=== PATIENT | male | born 1935 | race Caucasian/White ===

== ENCOUNTER 2019-09-14 12:55 | Outpatient (CLI) | payer MEDICARE, SELFPAY ==
[2019-09-14 14:42] LABS: Abs Immature Grans 0.19 k/cumm (0.0-0.09); Basophils % 0.1; Eosinophils % 0.6; HGB 8.1 g/dL (13.5-17.5); Immature Grans % 0.4; Lymphocytes % 72.6; Mean Corp. HGB Concentration 28.9 g/dL (32.0-36.0); Mean Corpuscular Hemoglobin 30.7 pg (27.0-33.0); Mean Corpuscular Volume 106.1 fL (80-95); Mean Platelet Volume 8.7 fL (8.0-11.0); Monocytes % 1.6; Neutrophils % 24.7; Platelet Count 484 x1000/uL (130-400); RBC 2.64 m/cumm (4.50-6.00); RBC Distribution Width 13.7 % (11.8-14.1)
[2019-09-14 14:56] LABS: ALT 12 U/L (16-63); AST 12 U/L (15-37); Albumin 2.3 g/dL (3.4-5.0); Alkaline Phosphatase 105 U/L (46-116); Anion Gap 6.4 mmol/L (3-11); BUN 18 mg/dL (7-18); Bilirubin, Total 0.3 mg/dL (0.2-1.0); CO2 31.6 mmol/L (21.0-32.0); CREATININE 1.21 mg/dL (0.70-1.30); Calcium 7.8 mg/dL (8.5-10.1); Chloride 98 mmol/L (98-107); Estimated GFR 57.27 (mL/min/1.73m2); Glucose 159 mg/dL (74-106); Potassium 4.7 mmol/L (3.5-5.1); Sodium 136 mmol/L (136-145)
[2019-09-14 15:15] LABS: Absolute Basophil Count 0.05 k/cumm (0.0-0.2); Absolute Eosinophil Count 0.28 k/cumm (0.0-0.7); Absolute Monocyte Count 0.75 k/cumm (0.11-0.7); Absolute Neutrophil Count 11.53 k/cumm (1.2-6.7)
[2019-09-14 15:16] LABS: Diff Comment Agrees w/ Instrument; Macrocytosis 1+; White Blood Cell Count 46.69 k/cumm (4.4-10.8)
== END 2019-09-14 13:15 ==
PROVIDERS: Visit Provider Nurse Practitioner Adult Health
DX: J90 Pleural effusion, not elsewhere classified (principal); J18.9 Pneumonia, unspecified organism
CPT/HCPCS: 36415; 80053; 85025

== ENCOUNTER 2022-01-04 18:06 | Inpatient (IN) | payer MEDICARE, MEDICAID, SELFPAY ==
--- NOTE | 2022-01-04 18:00 | RT.EKG_ITS ---
APPROVED REPORT Exam: Resting ECG Reason for Exam: Vomiting Patient Location: E HR:80 bpm ECG Measurements Heart Rate 80 AXIS OH 165 P 4 QRSd 100 QRS -45 QT 391 T 42 QTc 449 Conclusion Sinus rhythm...normal P axis Atrial premature complex Left anterior fascicular block.. AnteriorQ >40mS
[2022-01-04 18:13] VITALS: BP 144/72; PULSE 85; RESP 18; TEMP 37.1; O2SAT 91
[2022-01-04 18:56] LABS: Lactate 1.3 mmol/L (0.6-1.4)
[2022-01-04 19:09] LABS: Abs Immature Grans 0.17 10^3/uL (0.0-0.06); Absolute Lymphocyte Count 48.96 10^3/uL (1.2-3.4); Absolute Monocyte Count 0.56 10^3/uL (0.1-0.8); Basophils % 0.1; Eosinophils % 0.5; HCT 35.9 % (40.0-50.0); HGB 10.7 g/dL (13.5-17.5); Immature Grans % 0.3; MCHC 29.8 % (32.0-36.0); MCV 104.1 fL (80-95); MPV 10.5 fL (8.0-11.0); Neutrophils % 11.3; Nucleated RBC 0 %; Platelet Count 145 10^3/uL (130-400); RBC 3.45 10^6/uL (4.36-5.78); RDW 15.1 % (11.8-14.1); RDW-SD 56.5 fL
[2022-01-04 19:15] LABS: Absolute Basophil Count 0.06 10^3/uL (0.0-0.2); Absolute Eosinophil Count 0.28 10^3/uL (0.0-0.7); Absolute Neutrophil Count 6.37 10^3/uL (1.2-6.7)
--- NOTE | 2022-01-04 19:16 | W.ED.GENAD ---
Discharge Plan Discharge Details Chief Complaint: Abd Prob Clinical Impression: Intractable vomiting, Pneumonia Primary Care Provider: Unknown,Unknown ED Provider: Annalee Martin Home Meds and New Rx's Prescriptions: No Action apixaban [Eliquis] 5 MG tablet 5 mg PO BID Qty: 180 3RF metoprolol succinate 50 MG tablet extended release 24 hr 50 mg PO DAILY Qty: 90 1RF ibuprofen [Advil Liqui-Gel] 200 MG capsule 200 mg PO PRN PRNQty: 0 0RF Medical Decision Making 86-year-old male presents to the ER with chief complaint of nausea vomiting which began at 9 this morning. He denies any abdominal pain, denies any diarrhea. EMS reported a fever of 103 patient reports that he did not realize he had a fever. He does endorse chills. He is alert and oriented. He does live at [facility], [place]. He is not vaccinated for COVID. He reports that he has an inhaler at home. He does not use home oxygen. Other past medical history includes CLL, heart block with a pacemaker, BPH, hyperlipidemia, GERD, hypertension he is on Eliquis daily. Work-up ordered including CBC, CMP lipase troponin EKG, will order CT chest abdomen pending labs. Covid test ordered. CT chest abdomen pelvis without contrast ordered due to GFR of 33 EKG was reviewed by Dr. Curtis ER attending, please see his official report and review, old EKG available. CBC shows elevated white blood cell count to a level of 56.40, patient does have a history of CLL, hemoglobin 10.7, hematocrit 35.9, absolute lymphocytes 48.96, lactate within normal limits at 1.3, sodium 145, potassium 4.6, BUN 26, creatinine 1.9 GFR 33, glucose 112, mag is elevated at 2.6, initial and serial 3-hour troponin within normal limits. Covid is negative, lipase 24. 2154: Patient complaining of nausea again an additional 4 mg of Zofran IV and an additional 500 cc normal saline bolus ordered. Awaiting urine sample. 2217: Patient still c/o emesis, Reglan 10mg IV ordered. Patient patient continues to deny any chest or abdominal pain. Room air sat dropped to 88% on room air. I did discuss my recommendation with the patient for admission he verbalizes understanding. vRad report CT chest abdomen pelvis without contrast: IMPRESSION: 1. Aneurysm of the distal aortic arch. 2. Mild mediastinal and bilateral axillary lymphadenopathy. Please see discussion below. 3. Severe coronary artery calcifications. 4. Complex consolidations and/or scar tissue noted in both lungs, greatest in the left lower lobe. Active pneumonia not excluded. Chronic changes favored. 5. Trace right pleural effusion. 6. Mildly distended esophagus. Question dysmotility. 7. Multiple compression fractures, age-indeterminate. IMPRESSION: 1. Infrarenal abdominal aortic aneurysm, 4.6 cm. 2. Retroperitoneal lymphadenopathy, greater than expected for reactive/inflammatory etiologies. Question chronic lymphocytic leukemia. Other benign and malignant causes also considered. 3. Colonic diverticulosis, without diverticulitis. Will page hospitalist for admission for possible early pneumonia, dehydration and intractable vomiting. 2323: Spoke with Dr. Fernandez who agrees to accept patient for admission, he recommends a head CT, procalcitonin and Zosyn. Plan is to admit patient for observation and IV antibiotics. Discussed plan of care with patient who verbalizes understanding and is in agreement with plan. HPI General Mode of arrival: EMS. Date/Time Provider Initiated Documentation: 01/04/22 18:23. Limitations to Documentation: no limitations. Information obtained by: patient, EMS, RN notes reviewed and old records reviewed. HPI Narrative: 86-year-old male presents to the ER with chief complaint of nausea vomiting which began at 9 this morning. He denies any abdominal pain, denies any diarrhea. EMS reported a fever of 103 patient reports that he did not realize he had a fever. He does endorse chills. He is alert and oriented. He does live at [facility]. He is not vaccinated for COVID. He reports that he has an inhaler at home. He does not use home oxygen. Other past medical history includes CLL, heart block with a pacemaker, BPH, hyperlipidemia, GERD, hypertension he is on Eliquis daily. Related Data Home Medications Medication Instructions Recorded Confirmed ibuprofen 200 mg capsule (Advil 200 mg PO PRN PRN #0 10/08/14 10/14/14 Liqui-Gel) apixaban 5 mg tablet (Eliquis) 5 mg PO BID #180 tab 03/01/15 metoprolol succinate 50 mg 50 mg PO DAILY #90 tab-cap 06/07/15 tablet,extended release 24 hr Previous Rx's Medication Instructions Recorded ibuprofen 200 mg capsule (Advil 200 mg PO PRN PRN #0 10/08/14 Liqui-Gel) Allergies Allergy/AdvReac Type Severity Reaction Status Date / Time No Known Allergies Allergy Unverified 06/07/15 08:12 General Stated Complaint: Abd Prob RASHAAD: 3 Review of Systems All systems reviewed & are unremarkable except as noted in HPI and below Cardiovascular Cardiovascular: Reports dyspnea (Dyspnea) Respiratory Respiratory: Reports dyspnea (Dyspnea) and Denies wheezing Gastrointestinal Gastrointestinal: Denies diarrhea (Denies), Reports nausea and Reports vomiting Genitourinary Genitourinary: Denies dysuria (denies) Allergic/Immunologic Allergic/Immunologic: Denies wheezing PFSH All Active Problems (Updated 01/04/22 @ 23:07 by Annalee Martin) Dyspnea on exertion (Acute 10/06/14) a. cannot walk more than 20 or 25 feet; he feels like he is going to pass out Complete heart block (Acute 10/06/14) a. vitals are stable b. junctional escape at about 63 bpm Leukocytosis (Acute 10/06/14) a. predominance of lymphocytes, question CLL CLL (chronic lymphocytic leukemia) (Acute 10/06/14) Benign prostatic hypertrophy (Chronic) Erectile dysfunction (Chronic) Hyperlipidemia (Chronic) GERD (gastroesophageal reflux disease) (Chronic) Hypertension (Chronic) Benign hematuria (Chronic) History of shingles (Chronic) 01/2013 H/O surgical procedure (Chronic) a. bilateral inguinal herna repairs History of tobacco use (Chronic) smoked for 50 years, quit in 1997 Intractable vomiting (Acute) Pneumonia (Acute) Surgical History Pacemaker (12/07/14) Repair of inguinal hernia B/L Family History Mother Stroke Father Accidental HORSE FELL ON HIM Sister No problems noted. Brother No problems noted. Grandfather No problems noted. Grandfather No problems noted. Grandmother No problems noted. Grandmother No problems noted. Social History Smoking/Tobacco Use Status: Former Tobacco Use Smoking risk assessment performed?: Yes Alcohol Intake: never Drug use: Never Substance use type: does not use Do you feel safe at home: Yes Do you feel safe in your relationship?: Yes Exam Narrative Exam Narrative: Constitutional: Alert and oriented x3. Appears stated age. Normal body habitus. Head: Normocephalic, no trauma. Eyes: Pupils PERRL, Red reflex noted, EOM's intact. Eyelids symmetrical without lesions, discharge, or swelling. ENT: Bilateral TM's WNL, External ear normal to inspection, no mastoid TTP, swelling, or erythema, Nasal turbinates WNL, no nasal discharge. Normal dentition, Posterior pharynx WNL, no exudate. Chest: Pacemaker noted, RRR, Normal S1, S2, distal pulses intact. Resp: Lungs diminishedto auscultation bilaterally, no wheezes, rales, or rhonchi. Patient has periorbital cyanosis, placed on 2 L nasal cannula. O2 sat on room air 86 to 90%. Increases with deep breathing. Abdomen: Soft, non-distended, Normoactive bowel sounds all 4 quads. Musculoskeletal: Unable to assess gait. 5 strength to all four extremities. Skin: No suspicious rashes or lesions. Capillary refill less than 2 sec. Neurologic: Cranial nerves II-XII intact. Alert and oriented x 3. Motor: No deficits noted. Sensory: Intact bilaterally all 4 extremities. Reflexes: DTR's intact bilaterally.. Hematologic/Lymphatic: No ecchymosis, no lymphadenopathy. Course Vital Signs Vital signs: Vital Signs Temperature 37.1 C 01/04/22 18:13 Pulse 85 01/04/22 18:13 Respiratory Rate 18 01/04/22 18:13 Blood Pressure 144/72 H 01/04/22 18:13 Pulse Oximetry 91 L 01/04/22 18:13 Temperature 37.1 C 01/04/22 18:13 Temperature Source Oral 01/04/22 18:13 Pulse 85 01/04/22 18:13 Respiratory Rate 18 01/04/22 18:13 Blood Pressure 144/72 H 01/04/22 18:13 Blood Pressure Position Sitting 01/04/22 18:13 Pulse Oximetry 91 L 01/04/22 18:13 Oxygen Delivery Method Room Air 01/04/22 18:13 Oxygen Flow Rate 0 01/04/22 18:13 Lab/Test Results Lab/Test Results: 01/04/22 18:32 Blood Blood Culture - Pending 03/18/22 18:06 Blood Blood Culture - Pending Laboratory Tests Range/Units 01/04/22 18:32 VBG Lactate (0.6-1.4) mmol/L 1.3
[2022-01-04 19:34] LABS: ALT 14 U/L (16-63); AST 13 U/L (15-37); Albumin 4.4 g/dL (3.4-5.0); Alkaline Phosphatase 115 U/L (46-116); Anion Gap 10.8 mmol/L (3-11); BUN 26 mg/dL (7-18); Bilirubin, Total 0.8 mg/dL (0.2-1.0); CO2 26.2 mmol/L (21.0-32.0); CREATININE 1.9 mg/dL (0.70-1.30); Calcium 8.8 mg/dL (8.5-10.1); Chloride 108 mmol/L (98-107); Diff Comment Diff Reviewed; Estimated GFR 33.86 (mL/min/1.73m2); Glucose 112 mg/dL (74-106); Lipase 24 U/L (73-393); Lymphocytes % 86.8; Macrocytosis 3+; Magnesium 2.6 mg/dL (1.8-2.4); Potassium 4.6 mmol/L (3.5-5.1); Sodium 145 mmol/L (136-145); Total Protein 6.8 g/dL (6.4-8.2); Troponin I < 50 ng/L (<or=60)
[2022-01-04 19:40] LABS: Source Nasal/Nares
--- NOTE | 2022-01-04 19:45 | DI.CT_ITS ---
Exam(s) CT CHEST/ABD/PEL WO EXAM: CT CHEST/ABD/PEL WO CLINICAL HISTORY: Nausea, Vomiting, SOB, PUI. TECHNIQUE: Imaging Protocol: Axial computed tomography images with coronal and sagittal reformatted images were created and reviewed CONTRAST MATERIAL: Intravenous: none Oral: None COMPARISON: CT ABD PELVIS WITH CONTRAST from 02/15/2009 CR XR CHEST 2V PA LATERAL from 09/27/2019 FINDINGS: CHEST: LUNGS: There is now an element of decreased left hemithoracic volume without obvious ipsilateral left rib findings to suggest an prior thoracotomy.. There is some scarring in the lateral left lung as w ell as left lung base although there may also be some mild infiltrate in left lung base. No left ple ural effusion. On the right side there is a small pleural effusion evident. Some scarring in the apex. Benign calc ified granulomas again noted in the right lung. Mild infiltrate/atelectasis in the right lung base j ust above the hemidiaphragm. There are no significant focal findings in the trachea and mainstem bro nchi. MEDIASTINUM: The esophagus is significantly dilated to diameter of 3 cm. There is evidence of previo us surgery in the region of the stomach which was also evident on the 2008 study. The esophagus in 2 009 was not dilated. Luminal hyperdensity is noted in the lower esophagus, possibly significant. Vi sualized thyroid unremarkable.There is no obvious hilar adenopathy. There is, however, adenopathy in the mid mediastinum paratracheal region and aortopulmonic window. Slightly prominent hilar lymph no emmanuel, probably not pathologic. No supraclavicular adenopathy. Visualized thyroid unremarkable. CARDIAC: Cardiomegaly. Pacemaker wires. Thin pericardial effusion maximum measurement 3 millimeters . 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 Diameter of the proxim al arch is 3.8 cm. Mid arch 3.5 cm. There is aneurysmal dilatation of the distal aortic arch to 4.5 cm, not associated with an aberrant right subclavian artery. Distal to this fusiform aneurysm of th e descending thoracic aorta measures 3.2 cm. OSSEOUS: No obvious lytic osseous lesions. However, there are multilevel compression fractures in th e thoracolumbar spine, some which contain thoracoplasty cement, particularly T10, L1, and L4, or. Ot her multilevel superior endplate indentation noted. No obvious acute vertebral fractures. No lytic vertebral body lesions evident.. ABDOMEN: There is no ascites. LIVER: There are no obvious focal hepatic lesions evident of this noninfused study. GALLBLADDER/BILIARY: Gallbladder is somewhat distended, measuring 11 cm length by 4.3 cm wide. No ob vious gallstones nor gallbladder wall edema. CBD is not dilated PANCREAS: The pancreas is atrophic. No ominous pancreatic masses. No pancreatic calcifications. No dilatation of the pancreatic duct. SPLEEN: Spleen is not enlarged. No obvious intrasplenic lesions. ADRENALS: There are no significant adrenal masses. KIDNEYS: There are cysts in both kidneys.. These have increased in size from 2009. Largest cyst in the right kidney is located inferiorly and measures 3.2 x 3 cm. Largest cyst in the left kidney is a lso towards the inferior aspect and measures 2.5 x 2.5 cm. No solid renal masses. No calculi. No h ydronephrosis nor hydroureter on. No obvious focal abnormality in the urinary bladder. No bladder d iverticuli. Prostate size is minimally prominent. ABDOMINAL AORTA: There is a fusiform para renal abdominal aortic aneurysm. At the level of the renal arteries the aorta measures 3.9 cm. Exhibit similar diameter distally. Also arterial megaly of the common iliac arteries both sides noted, more so on the left. LYMPH NODES: There is para-aortic adenopathy. Also adenopathy around the aortic bifurcation. Also a long the iliac chains. Slightly prominent bilateral inguinal nodes are noted. ABDOMINAL WALL/GI: There are 2 adjacent fat only containing anterior abdominal hernia as, similar to previous. Mesenteric fat within the inguinal hernia sacs is knots pre shea. No bowel loops therein. No bowel obstruction. No evidence of bowel obstruction. PELVIS: LYMPH NODES: Adenopathy as described above. GI: No evidence of appendicitis.Extensive diverticulosis of the descending-left colon but no evidence of obvious acute diverticulitis. No free fluid URINARY BLADDER: No calculi nor obvious masses evident REPRODUCTIVE: Age appropriate OSSEOUS: No significant osseous lesions. IMPRESSION: 1. There is lymphadenopathy in the mediastinum, intra-abdominal para-aortic and within the iliac sonja ns of both sides of the pelvis. Suspicious for lymphoma. Spleen size is normal. There is no ascite s. 2. There is aneurysmal dilatation of the ascending, arch, and proximal descending thoracic aorta, wit h measurements as above. The fusiform dilatation of the distal aortic arch to diameter of 4.5 cm (no associated aberrant right subclavian artery at this level). There is also aneurysmal dilatation of the abdominal aorta measuring up to 3.9 cm. Also arterial megaly of the common iliac arteries, sligh tly more prominent on the left side. 3. Left-sided lung scarring and some infiltrate in the left lung base. Small right pleural effusion. No pleural effusion on the left side. 4. unchanged adjacent fat only containing anterior abdominal wall hernias. No bowel obstruction. 5. Benign cysts in both kidneys which have slightly enlarged when compared to 2009. There are no so lid renal masses, calculi, or hydronephrosis. No significant findings in the urinary bladder. 6. there are multilevel compression fractures including 3 of which contain kyphoplasty cement, these being T10, L1, and L4. No obvious acute thoracic spine fractures nor lytic osseous lesions. 7. There is extensive diverticulosis of the descending and sigmoid colon. There is, however, no ann-marie dence of obvious acute diverticulitis. RADIATION DOSE DELIVERED: 1,148.49mGy.cm Total DLP DATA REPOSITORY: All CT scans at this facility are submitted to the National Radiology Data Registry (NRDR) Dose Index Registry (DIR) with the [employer] (ACR). RADIATION OPTIMIZATION: All CT scans at this facility use at least one of these dose optimization te chniques: automated exposure control; mA and/or kV adjustment per patient size (includes targeted exa ms where dose is matched to clinical indication); or iterative reconstruction.
[2022-01-04 19:52] VITALS: BP 138/72; PULSE 88; RESP 18; O2SAT 95
[2022-01-04 20:26] LABS: COVID-19 PCR Negative (Negative)
[2022-01-04 21:38] LABS: Troponin I < 50 ng/L (<or=60)
[2022-01-04] MEDS: Ondansetron 4 MG/2 ML VIAL IVP ×2 (21:57→23:35)
[2022-01-04] MEDS: Normal Saline 500 ML IV (21:58)
[2022-01-04] MEDS: Metoclopramide 10 MG/2 ML VIAL IVP (22:21)
--- NOTE | 2022-01-04 22:41 | DI.VRAD_ITS ---
PROCEDURE INFORMATION: Exam: CT Chest Without Contrast; Diagnostic Exam date and time: 01/04/2022 9:17 PM Age: 86 years old Clinical indication: Nausea and vomiting; Shortness of breath; Additional info: Nausea, vomiting, SOB TECHNIQUE: Imaging protocol: Diagnostic computed tomography of the chest without contrast. 3D rendering (Not supervised by radiologist): MIP and/or 3D reconstructed images were created by the technologist. Radiation optimization: All CT scans at this facility use at least one of these dose optimization techniques: automated exposure control; mA and/or kV adjustment per patient size (includes targeted exams where dose is matched to clinical indication); or iterative reconstruction. COMPARISON: CR XR CHEST 2V PA LATERAL 09/27/2019 10:26 AM FINDINGS: Tubes, catheters and devices: Pacemaker wires noted, looped in the right atrium. Mildly dilated esophagus. Lungs: Complex consolidations noted in the lower lobes, left greater than right. Large pleuroparenchymal band of tissue noted in the left upper lobe. Moderate volume loss noted in the left lung. Pleural spaces: Trace right pleural effusion. No pneumothorax. Heart: Mild cardiomegaly. Pericardial thickening. Severe coronary artery calcifications. Aorta: Abnormal distal aortic arch, 4.7 cm diameter. Moderate vascular calcifications. Ascending thoracic aorta is negative for aneurysm. Descending thoracic aorta is negative for aneurysm. Lymph nodes: Mild mediastinal and axillary lymphadenopathy. Subaortic lymph node measures 18 x 21 mm. Bones/joints: Compression fractures are noted at T6, T7, T9, T10, T11, T12, L1, and L2. Methylmethacrylate noted L1 and T10. Soft tissues: Mild gynecomastia. Small epidermal inclusion cyst noted, midline lower back approximately T9-T10 level. IMPRESSION: 1. Aneurysm of the distal aortic arch. 2. Mild mediastinal and bilateral axillary lymphadenopathy. Please see discussion below. 3. Severe coronary artery calcifications. 4. Complex consolidations and/or scar tissue noted in both lungs, greatest in the left lower lobe. Active pneumonia not excluded. Chronic changes favored. 5. Trace right pleural effusion. 6. Mildly distended esophagus. Question dysmotility. 7. Multiple compression fractures, age-indeterminate. PROCEDURE INFORMATION: Exam: CT Abdomen And Pelvis Without Contrast Exam date and time: 01/04/2022 9:17 PM Age: 86 years old Clinical indication: Nausea and vomiting; Shortness of breath; Additional info: Nausea, vomiting, SOB TECHNIQUE: Imaging protocol: Computed tomography of the abdomen and pelvis without contrast. 3D rendering (Not supervised by radiologist): MIP and/or 3D reconstructed images were created by the technologist. Radiation optimization: All CT scans at this facility use at least one of these dose optimization techniques: automated exposure control; mA and/or kV adjustment per patient size (includes targeted exams where dose is matched to clinical indication); or iterative reconstruction. COMPARISON: CR XR CHEST 2V PA LATERAL 09/27/2019 10:26 AM FINDINGS: Lungs: Please see CT chest report above. Liver: Unremarkable noncontrast liver imaging. Gallbladder and bile ducts: Distended gallbladder. No calcified stones. No ductal dilatation. Pancreas: Fatty replaced pancreas. No inflammatory change. Spleen: Negative for suspicious splenic lesion. Adrenal glands: Normal. No mass. Kidneys and ureters: Negative for hydronephrosis. Multiple small cysts are present in both kidneys, up to 3.1 cm diameter. Nondilated ureters. No stones. Stomach and bowel: Collapsed stomach. Surgical clips are noted around the gastroesophageal junction. Small bowel is not dilated. Most of the small bowel is on the right, with the colon on the left abdomen. The duodenum is rotated and appropriate in position. Moderate stool noted in the cecum. Extensive diverticulosis is noted in the colon. There are no focal inflammatory changes around the colon. Appendix: Normal appendix is observed, located in the anterior mid abdomen with the abnormal left-sided position of the cecum. Intraperitoneal space: Unremarkable. No free air. No significant fluid collection. Vasculature: The infrarenal abdominal aorta is aneurysmal, 4.6 cm AP diameter. Moderate calcifications are present through the aorta and branch arteries. Lymph nodes: Retroperitoneal lymphadenopathy is observed. Infrarenal periaortic lymph nodes on the left measure up to 18 x 19 mm. Fat stranding is noted around the lymph nodes, suggesting lymphatic congestion. Lymphadenopathy extends into the iliac chains bilaterally. Urinary bladder: Unremarkable as visualized. Reproductive: Unremarkable as visualized. Bones/joints: Compression fractures are noted L1, L2, and L4. Methylmethacrylate is present L1 and L4. Multilevel facet arthropathy noted. Mild degenerative disc disease present, although vacuum disc is prominent at L4-L5. No evidence of endplate destructive change. Soft tissues: Periumbilical abdominal wall hernias are present, containing. Additional intramuscular lipoma noted in the upper right abdominal wall. IMPRESSION: 1. Infrarenal abdominal aortic aneurysm, 4.6 cm. 2. Retroperitoneal lymphadenopathy, greater than expected for reactive/inflammatory etiologies. Question chronic lymphocytic leukemia. Other benign and malignant causes also considered. 3. Colonic diverticulosis, without diverticulitis. Dictated and Authenticated by: Yosef Black MD. Ordering:BRENNAN Mantilla MD
--- NOTE | 2022-01-04 23:00 | DI.CT_ITS ---
Exam(s) CT HEAD WO EXAM: CT HEAD WO CLINICAL HISTORY: Vomiting R/O CVA. TECHNIQUE: Imaging Protocol: Axial computed tomography images with coronal and sagittal reformatted images were created and reviewed COMPARISON: No exams were available for comparison FINDINGS: There are no skull fractures nor fluid in the visualized paranasal sinuses. There is no evidence of intracranial hemorrhage, mass effect, or shift of midline structures. There are no extra-axial fluid collections. The ventricles are not enlarged or shifted and there is no blo od within the ventricular system nor within the basal cisterns. Amount of involutional changes consistent with this patient's advanced age IMPRESSION: No acute intracranial findings on this noninfused CT scan of the brain. RADIATION DOSE DELIVERED: 922.97mGy.cm Total DLP DATA REPOSITORY: All CT scans at this facility are submitted to the National Radiology Data Registry (NRDR) Dose Index Registry (DIR) with the [employer] (ACR). RADIATION OPTIMIZATION: All CT scans at this facility use at least one of these dose optimization te chniques: automated exposure control; mA and/or kV adjustment per patient size (includes targeted exa ms where dose is matched to clinical indication); or iterative reconstruction.
[2022-01-04] MEDS: Famotidine 20 MG/2 ML VIAL IVP (23:34)
[2022-01-04] MEDS: Normal Saline 1,000 ML 150 ML IV (23:35)
[2022-01-04] MEDS: PIPERACILLIN/TAZO 3.375 GM in Normal Saline 50 ML IVPB (23:35)
[2022-01-04] MEDS: Ondansetron 4 MG/2 ML VIAL (23:35)
[2022-01-05] VITALS (14 sets, daily range): BP systolic 103–117; BP diastolic 47–71; PULSE 67–79; RESP 1–20; TEMP 36.8–37.7; O2SAT 95–97
[2022-01-05 00:15] LABS: Procalcitonin 0.1 ng/mL
--- NOTE | 2022-01-05 00:30 | DI.VRAD_ITS ---
PROCEDURE INFORMATION: Exam: CT Head Without Contrast Exam date and time: 01/05/2022 12:09 AM Age: 86 years old Clinical indication: Other: Vomiting, R/O CVA TECHNIQUE: Imaging protocol: Computed tomography of the head without contrast. Radiation optimization: All CT scans at this facility use at least one of these dose optimization techniques: automated exposure control; mA and/or kV adjustment per patient size (includes targeted exams where dose is matched to clinical indication); or iterative reconstruction. Other technique: STROKE PROTOCOL was implemented. COMPARISON: No relevant prior studies available. FINDINGS: Brain: There is mild age related parenchymal atrophy with prominence of the cortical sulci. Periventricular and deep white matter hypodensities are consistent with sequela of chronic microvascular ischemic disease. No midline shift or herniation. No acute intracranial hemorrhage. Cerebral ventricles: No ventriculomegaly. Paranasal sinuses: Imaged paranasal sinuses appropriately aerated without air-fluid levels. Mastoid air cells: No mastoid effusion. Bones/joints: Unremarkable. No acute osseous finding. Soft tissues: No focal soft tissue abnormality. IMPRESSION: No acute intracranial finding. ASSESSMENT: ASPECTS ([place] Stroke Program Early CT Score) is 10. Dictated and Authenticated by: Abdi Negrete MD. Ordering:BRENNAN Mantilla MD
[2022-01-05 01:21] LABS: Bilirubin Negative (Negative); Blood Trace-lysed (Negative); Clarity Clear (Clear); Glucose Negative (Negative); Ketones Negative (Negative); Leukocyte Esterase Negative (Negative); Nitrite Negative (Negative); Specific Gravity 1.025 (1.005-1.025); Urobilinogen 0.2 EU/dL (Up TO 0.2); pH 5.5 (5-8)
[2022-01-05 01:28] LABS: WBC 0-2 HPF (0-5)
[2022-01-05 01:29] LABS: Bacteria Rare HPF (Negative); C & S Indicated? No; Casts 3-5 Hyaline LPF (Negative); Crystals Negative HPF (Negative); Epithelial Cells Negative HPF (Negative); Mucus Trace (Negative)
[2022-01-05 07:17] LABS: ALT 12 U/L (16-63); AST 11 U/L (15-37); Albumin 3.8 g/dL (3.4-5.0); Alkaline Phosphatase 106 U/L (46-116); Anion Gap 1.7 mmol/L (3-11); BUN 24 mg/dL (7-18); Bilirubin, Total 0.7 mg/dL (0.2-1.0); CO2 27.3 mmol/L (21.0-32.0); CREATININE 1.7 mg/dL (0.70-1.30); Calcium 7.8 mg/dL (8.5-10.1); Chloride 106 mmol/L (98-107); Glucose 88 mg/dL (74-106); Sodium 135 mmol/L (136-145); Total Protein 6.1 g/dL (6.4-8.2)
--- NOTE | 2022-01-05 08:00 | W.PM.HP.N ---
Assessment and Plan Assessment and plan (1) CLL (chronic lymphocytic leukemia): Status: Acute Assessment and plan: His white blood cell count is elevated higher than its been in the past that we have records of. The differential shows about 50% lymphocytes. His blood count be rechecked this morning. (2) Intractable vomiting: Status: Acute Assessment and plan: His intractable vomiting is improved. This vomiting was probably related to the meal that he had at [facility] yesterday morning. We will start him on clear fluids this morning. (3) Pneumonia: Status: Acute Assessment and plan: His x-ray does show some infiltrate. He has been started on Zosyn and will check a Legionella antigen and strep antigen. Attempted sputum culture on him. His Covid test is negative. His x-ray does not have an appearance of a Covid pneumonia. I encouraged him to get vaccinated. 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 I doubt if he be a surgical candidate for repair. This can be follow-up as an outpatient. History of Present Illness History of Present Illness Chief Complaint: intractable vomiting Narrative: This 86-year-old male came to the emergency department yesterday with intractable vomiting. Started about 9 AM when he and his stepdaughter went to [facility] after going to [facility] and had an egg McMuffin. He says his stepdaughter had 2 of them that he could only eat half when the began having vomiting. This vomiting persisted and he came to the emergency department for evaluation. He had extensive evaluation and note etiology was found for his vomiting. He was found to have a aneurysm of the thoracic and abdominal aorta is which are not causing his symptoms at the present time. He was found to have some infiltrates in his lungs. Covid testing is negative. Is not immunized Covid and says his doctor in [facility] told him he did not need the vaccine. He feels improved today. He has not had any abdominal pain. He has not vomited for a number of hours and he would like to advance his diet. He is only given ice chips now. He was found to be a bit hypoxic in the emergency department and was put on supplemental oxygen. He has not had any cough. He has not been febrile here or in emergency department but was found to have a fever by EMS when they picked him up at 103 ?F. He does live by himself. His stepdaughter helps him out when he needs to go places. He says he manages well on his own and has an apartment managed by [facility] here in [facility]. He does take a apixaban and I do not see any cardiac problem on his problem list except for complete heart block. I suspect he is on this for atrial fibrillation although his electrocardiogram did not show that on admission. He did quit smoking a pack a day in 1997. He does not use alcohol. Review of Systems Constitutional Constitutional: Denies chills, Denies fever(s), Denies frequent falls and Denies headache(s) ENT Ears, Nose, Mouth, and Throat: Denies headache(s) Cardiovascular Cardiovascular: Denies chest pain, Denies irregular heart rhythm, Denies radiating jaw, neck or arm pain, Denies palpitations and Denies dyspnea Respiratory Respiratory: Denies cough, Denies pain with cough and Denies dyspnea Gastrointestinal Gastrointestinal: Denies abdominal pain, Denies heartburn, Denies diarrhea, Denies loose stools, Reports nausea, Reports vomiting and Denies hematemesis Genitourinary Genitourinary: Denies difficulty urinating and Denies dysuria Neurologic Neurologic: Reports system reviewed and no additional complaints, except as documented, Denies frequent falls, Denies headache(s) and Denies seizure-like activity Endocrine Endocrine: Denies palpitations PFSH All Active Problems (Updated 01/05/22 @ 08:15 by Keagan Fernandez MD) Aortic aneurysm (Chronic) Dyspnea on exertion (Acute 10/06/14) a. cannot walk more than 20 or 25 feet; he feels like he is going to pass out Complete heart block (Acute 10/06/14) a. vitals are stable b. junctional escape at about 63 bpm Leukocytosis (Acute 10/06/14) a. predominance of lymphocytes, question CLL CLL (chronic lymphocytic leukemia) (Acute 10/06/14) Benign prostatic hypertrophy (Chronic) Erectile dysfunction (Chronic) Hyperlipidemia (Chronic) GERD (gastroesophageal reflux disease) (Chronic) Hypertension (Chronic) Benign hematuria (Chronic) History of shingles (Chronic) 01/2013 H/O surgical procedure (Chronic) a. bilateral inguinal herna repairs History of tobacco use (Chronic) smoked for 50 years, quit in 1997 Intractable vomiting (Acute) Pneumonia (Acute) Surgical History Pacemaker (12/07/14) Repair of inguinal hernia B/L Family History Mother Stroke Father Accidental HORSE FELL ON HIM Sister No problems noted. Brother No problems noted. Grandfather No problems noted. Grandfather No problems noted. Grandmother No problems noted. Grandmother No problems noted. Social History Smoking/Tobacco Use Status: Former Tobacco Use Smoking risk assessment performed?: Yes Alcohol Intake: never Drug use: Never Substance use type: does not use Do you feel safe at home: Yes Do you feel safe in your relationship?: Yes Meds Allergies and Home Medications Allergies Allergy/AdvReac Type Severity Reaction Status Date / Time No Known Allergies Allergy Unverified 06/07/15 08:12 Home Medications Medication Instructions Recorded Confirmed Type ibuprofen 200 mg capsule (Advil 200 mg PO PRN PRN #0 10/08/14 10/14/14 Rx Liqui-Gel) apixaban 5 mg tablet (Eliquis) 5 mg PO BID #180 tab 03/01/15 01/05/22 History metoprolol succinate 50 mg 50 mg PO DAILY #90 tab-cap 06/07/15 01/05/22 History tablet,extended release 24 hr albuterol sulfate 90 mcg/actuation 1 puff INHALATION PRN PRN 01/05/22 01/05/22 History aerosol inhaler furosemide 20 mg tablet 20 mg DAILY 01/05/22 01/05/22 History ipratropium 0.5 mg-albuterol 3 mg 3 ml INHALATION DAILY 01/05/22 01/05/22 History (2.5 mg base)/3 mL nebulization soln Exam Const General: cooperative, comfortable, no acute distress and not ill appearing Nutritional Appearance: overweight HENMT Mouth: oral mucosae normal Neck Neck: normal visual inspection, no lymphadenopathy and no JVD Resp Auscultation: clear to auscultation bilaterally, no rales and no wheezes Cardio Rate: regular rate Rhythm: regular rhythm Heart Sounds: S1 normal, S2 normal, no gallops and no murmurs GI Inspection: normal to inspection and non-distended Palpation: soft, no hepatosplenomegaly, not firm and nontender Extrem General: normal to inspection, no cyanosis and no edema Results Labs Result diagrams: 01/04/22 18:32 01/05/22 06:40 Labs: Laboratory Results - last 24 hr 01/04/22 01/04/22 01/04/22 18:32 18:32 18:32 WBC 56.40 H* RBC 3.45 L Hgb 10.7 L Hct 35.9 L MCV 104.1 H MCH 31.0 MCHC 29.8 L RDW 15.1 H Plt Count 145 MPV 10.5 Immature Gran % 0.3 Neutrophils % 11.3 Lymphocytes % 86.8 Monocytes % 1.0 Eosinophils % 0.5 Basophils % 0.1 Nucleated RBC % 0 Absolute Neutrophils 6.37 Absolute Lymphocytes 48.96 H Absolute Monocytes 0.56 Absolute Eosinophils 0.28 Absolute Basophils 0.06 RBC Morphology See Below Macrocytosis 3+ VBG Lactate 1.3 Sodium 145 Potassium 4.6 Chloride 108 H Carbon Dioxide 26.2 Anion Gap 10.8 BUN 26 H Creatinine 1.9 H Estimated GFR/1.73 m2 33.86 Glucose 112 H Calcium 8.8 Magnesium 2.6 H Total Bilirubin 0.8 AST 13 L ALT 14 L Alkaline Phosphatase 115 Troponin I < 50 Total Protein 6.8 Albumin 4.4 Lipase 24 Procalcitonin Urine Color Urine Clarity Urine pH Ur Specific [place] Urine Protein Urine Ketones Urine Blood Urine Nitrite Urine Bilirubin Urine Urobilinogen Ur Leukocyte Esterase Urine RBC Urine WBC Ur Epithelial Cells Urine Crystals Urine Bacteria Urine Casts Urine Mucus Ur Culture Indicated? Urine Glucose COVID-19 Source SARS-CoV-2 (PCR) 01/04/22 01/04/22 01/04/22 19:30 19:32 20:45 WBC RBC Hgb Hct MCV MCH MCHC RDW Plt Count MPV Immature Gran % Neutrophils % Lymphocytes % Monocytes % Eosinophils % Basophils % Nucleated RBC % Absolute Neutrophils Absolute Lymphocytes Absolute Monocytes Absolute Eosinophils Absolute Basophils RBC Morphology Macrocytosis VBG Lactate Sodium Potassium Chloride Carbon Dioxide Anion Gap BUN Creatinine Estimated GFR/1.73 m2 Glucose Calcium Magnesium Total Bilirubin AST ALT Alkaline Phosphatase Troponin I < 50 Total Protein Albumin Lipase Procalcitonin 0.1 Urine Color Urine Clarity Urine pH Ur Specific [place] Urine Protein Urine Ketones Urine Blood Urine Nitrite Urine Bilirubin Urine Urobilinogen Ur Leukocyte Esterase Urine RBC Urine WBC Ur Epithelial Cells Urine Crystals Urine Bacteria Urine Casts Urine Mucus Ur Culture Indicated? Urine Glucose COVID-19 Source Nasal/Nares SARS-CoV-2 (PCR) Negative 01/05/22 01/05/22 01:12 06:40 WBC RBC Hgb Hct MCV MCH MCHC RDW Plt Count MPV Immature Gran % Neutrophils % Lymphocytes % Monocytes % Eosinophils % Basophils % Nucleated RBC % Absolute Neutrophils Absolute Lymphocytes Absolute Monocytes Absolute Eosinophils Absolute Basophils RBC Morphology Macrocytosis VBG Lactate Sodium 135 L Potassium 4.0 Chloride 106 Carbon Dioxide 27.3 Anion Gap 1.7 L BUN 24 H Creatinine 1.7 H Estimated GFR/1.73 m2 38.50 Glucose 88 Calcium 7.8 L Magnesium Total Bilirubin 0.7 AST 11 L ALT 12 L Alkaline Phosphatase 106 Troponin I Total Protein 6.1 L Albumin 3.8 Lipase Procalcitonin Urine Color Yellow Urine Clarity Clear Urine pH 5.5 Ur Specific [place] 1.025 Urine Protein Negative Urine Ketones Negative Urine Blood Trace-lysed H Urine Nitrite Negative Urine Bilirubin Negative Urine Urobilinogen 0.2 Ur Leukocyte Esterase Negative Urine RBC 5-10 H Urine WBC 0-2 Ur Epithelial Cells Negative Urine Crystals Negative Urine Bacteria Rare Urine Casts 3-5 Hyaline Urine Mucus Trace Ur Culture Indicated? No Urine Glucose Negative COVID-19 Source SARS-CoV-2 (PCR) Last Vital Signs Temp 36.9 C 01/05/22 05:55 Pulse 76 01/05/22 07:33 Resp 18 01/05/22 05:55 BP 105/61 01/05/22 05:55 Pulse Ox 97 01/05/22 05:55
[2022-01-05] MEDS: Aspirin 81 MG CHEW CH (08:41)
[2022-01-05] MEDS: Albuterol/Ipratropium 3 ML UPD VIAL IH ×4 (08:41→20:19)
[2022-01-05] MEDS: Normal Saline Flush 10 ML SYR IVP (08:42)
[2022-01-05] MEDS: Normal Saline 1,000 ML 75 ML IV (08:42)
[2022-01-05] MEDS: Apixaban 5 MG TAB PO ×2 (08:42→20:20)
--- NOTE | 2022-01-05 08:59 | PDOC.CMIN ---
- If Service Date Differs Date of service: 01/05/22 Time of Service: 08:59 Care Management Initial Assess REASON FOR HOSPITALIZATION:: Pneumonia, Intractable Vomiting, CLL PAST MEDICAL HISTORY/PAST SURGICAL HISTORY:: All Active Problems (Updated 01/05/22 @ 08:15 by Keagan Fernandez MD). Aortic aneurysm (Chronic). Dyspnea on exertion (Acute 10/06/14). a. cannot walk more than 20 or 25 feet; he feels like he is going to pass out. Complete heart block (Acute 10/06/14). a. vitals are stable. b. junctional escape at about 63 bpm. Leukocytosis (Acute 10/06/14). a. predominance of lymphocytes, question CLL. CLL (chronic lymphocytic leukemia) (Acute 10/06/14). Benign prostatic hypertrophy (Chronic). Erectile dysfunction (Chronic). Hyperlipidemia (Chronic). GERD (gastroesophageal reflux disease) (Chronic). Hypertension (Chronic). Benign hematuria (Chronic). History of shingles (Chronic). 01/2013. H/O surgical procedure (Chronic). a. bilateral inguinal herna repairs. History of tobacco use (Chronic). smoked for 50 years, quit in 1997. Intractable vomiting (Acute). Pneumonia (Acute). Surgical History . Pacemaker (12/07/14). Repair of inguinal hernia. B/L PREVIOUS FUNCTIONAL STATUS/SOCIAL/FAMILY SUPPORTS:: Micky is and lives alone at the [facility] in [facility]. He is independent with his ADL's and if he ever needs anything he calls his daughter Kate Camachoor who lives up the street. He uses a walker to ambulate and travels often to his daughter's house using his motorized scooter. He uses [email or web address] to transport to his doctor's appointments, and Kate transports him everywhere else. They have a good relationship and are very close. CURRENT FUNCTIONAL STATUS:: Micky was sitting on the side of his bed visiting his daughter Kate and her when CM met with him. He was alert, oriented pleasant and easy to engage in conversation. Although he would rather go home, he is ok with staying the night for additional IV antibiotics and monitoring. He is using his IS and acapella as instructed. ADVANCE DIRECTIVES:: On File, , alt. [facility] is daughter Kate Bedor. Has patient been provided with info about the portal/API?: Yes Did the patient sign up for the portal?: No CODE STATUS:: DNR/DNI INSURANCE COVERAGE / FINANCIAL ISSUES:: Medicaid. Medicare CURRENT HOME/COMMUNITY SERVICES/EQUIPMENT:: Has a walker and motorized scooter at home. He does not have [facility] services. He is not interested in [facility], as he does not favor their meals. PRIMARY CARE PHYSICIAN:: [facility], Dr. Rocha POTENTIAL DISCHARGE NEEDS:: Follow up appointments, Outpatient ST PATIENT/FAMILY EDUCATION NEEDS:: Review discharge instructions, limitations, medications and plan to follow up with community providers. ANTICIPATED BARRIERS TO DISCHARGE:: None identified at this time. TRANSPORTATION:: Via private vehicle with [facility]. PLAN:: Anticipate, Micky will discharge home when he is medically ready. He will transport via private vehicle with [facility] Love. He will follow up with community providers and discharge plan of care as prescribed.
[2022-01-05] MEDS: PIPERACILLIN/TAZO 3.375 GM in Normal Saline 50 ML IVPB ×3 (09:30→20:20)
[2022-01-05 23:15] LABS: Legionella Ag Detection Urine Negative (Negative)
[2022-01-06] VITALS (11 sets, daily range): BP systolic 94–107; BP diastolic 50–62; PULSE 76–84; RESP 2–20; TEMP 36.6–37.9; O2SAT 85–96
[2022-01-06] MEDS: PIPERACILLIN/TAZO 3.375 GM in Normal Saline 50 ML IVPB ×4 (02:10→19:45)
[2022-01-06 06:05] LABS: Abs Immature Grans 0.08 10^3/uL (0.0-0.06); Absolute Eosinophil Count 0.16 10^3/uL (0.0-0.7); Absolute Lymphocyte Count 35.03 10^3/uL (1.2-3.4); Absolute Monocyte Count 0.48 10^3/uL (0.1-0.8); Absolute Neutrophil Count 4.29 10^3/uL (1.2-6.7); Basophils % 0.2; Eosinophils % 0.4; HCT 31.1 % (40.0-50.0); HGB 9.2 g/dL (13.5-17.5); Immature Grans % 0.2; Lymphocytes % 87.3; MCH 31.3 pg (27.0-33.0); MCHC 29.6 % (32.0-36.0); MCV 105.8 fL (80-95); MPV 10.5 fL (8.0-11.0); Monocytes % 1.2; Neutrophils % 10.7; Nucleated RBC 0 %; Platelet Count 117 10^3/uL (130-400); RBC 2.94 10^6/uL (4.36-5.78); RDW-SD 59.2 fL
[2022-01-06 06:14] LABS: BUN 20 mg/dL (7-18); CREATININE 1.6 mg/dL (0.70-1.30); Calcium 7.8 mg/dL (8.5-10.1); Chloride 108 mmol/L (98-107); Estimated GFR 41.29 (mL/min/1.73m2); Glucose 90 mg/dL (74-106); Potassium 4.7 mmol/L (3.5-5.1); Sodium 140 mmol/L (136-145)
[2022-01-06 06:20] LABS: Absolute Basophil Count 0.08 10^3/uL (0.0-0.2)
[2022-01-06 06:25] LABS: WBC 40.13 10^3/uL (4.4-10.8)
[2022-01-06 06:38] LABS: Poikilocytes 2+
[2022-01-06 06:39] LABS: Diff Comment Diff Reviewed
[2022-01-06] MEDS: Aspirin 81 MG CHEW CH (07:27)
[2022-01-06] MEDS: Apixaban 5 MG TAB PO ×2 (07:27→19:45)
[2022-01-06] MEDS: Albuterol/Ipratropium 3 ML UPD VIAL IH ×3 (08:44→19:46)
--- NOTE | 2022-01-06 11:13 | PT.INIE ---
Date of service: 01/06/22 Time of Service: 10:55 PT Notes Visit Reasons: Vomiting, Pnuemonia, Inpatient Physical Therapy Evaluation Date: 01/06/22 Referring Doctor: Holly Paige PT Orders: PT CONSULT: Evaluate and treat Precautions: Standard Patient Profile/Admitting Diagnosis: Orders received for this 86-year-old male with a history of good physical health. Apparently a few days ago patient was having lunch with his daughter when he could barely make it through his meal and started vomiting. He states that this has been going on for a few months but with how quickly this started coming about it was concerning. He was brought to the emergency department and found to have an abdominal aneurysm. Since his admission he has been found to have a fever at the time of his ED visit. He also has been a little hypoxic with activity PMHX: All Active Problems?(Updated 01/05/22 @ 08:15 by Keagan Fernandez MD) Aortic aneurysm (Chronic) Dyspnea on exertion (Acute 10/06/14) a.? cannot walk more than 20 or 25 feet; he feels like he is going to pass outComplete heart block (Acute 10/06/14) a.? vitals are stable b.? junctional escape at about 63 bpmLeukocytosis (Acute 10/06/14) a.? predominance of lymphocytes, question CLLCLL (chronic lymphocytic leukemia) (Acute 10/06/14) Benign prostatic hypertrophy (Chronic) Erectile dysfunction (Chronic) Hyperlipidemia (Chronic) GERD (gastroesophageal reflux disease) (Chronic) Hypertension (Chronic) Benign hematuria (Chronic) History of shingles (Chronic) 01/2013H/O surgical procedure (Chronic) a.? bilateral inguinal herna repairsHistory of tobacco use (Chronic) smoked for 50 years, quit in 1997Intractable vomiting (Acute) Pneumonia (Acute) Surgical History? Pacemaker (12/07/14) Repair of inguinal hernia B/L Social History/Home Situation: Patient lives independently in the [facility] Equipment Owned/DME: Front wheel walker at baseline Subjective: Patient states that he is doing okay today he does have his appetite back Objective: Patient sitting up in chair comfortably no medical lines in place, patient is receiving supplemental oxygen via nasal cannula Mental Status: well oriented alert to person place and time Pain: 0/10 ROM: Right Upper Extremity: Within functional limit Left Upper Extremity: Within functional limits Right Lower Extremity: Within functional limits Left Lower Extremity: Within functional limits Strength: Right Upper Extremity: Globally 5 out of 5 Left Upper Extremity: Globally 5 out of 5 Right Lower Extremity: Globally 5 out of 5 Left Lower Extremity: Globally 5 out of 5 Bed Mobility/Transfers: Not assessed as patient already in the seated position Sit-stand: Supervision Stand-sit: Supervision Gait: Assistance--under contact-guard assist Distance--20 feet in room Device--FW W Balance: Static Sitting: Normal Dynamic Sitting: Normal Static Standing: Good Dynamic Standing: Good Patient was able to come to stand on 2 repetitions, his O2 saturation ranged from 94% in the seated position to 91% in the standing position after 2-minute intervals Special Tests: Mobility Limitations Standardized Measure [facility] AM-PAC 6 clicks Basic Mobility Inpatient Short Form: Raw Score: 21standardized Score: 44.27CMS Score: 32.7% Informed Consent/Education: Patient instructed in purpose of PT consult and plan of care. ASSESSMENT: Patient is a 86-year-old male with a history of good physical health Admitted with fever, abdominal aneurysm, slightly hypoxic Patient presents with the following impairment level findings: Slight hypoxia with standing and activity, ambulation intolerance, Pt will benefit from skilled therapy intervention in order to remedy their functional limitations and restore patient to a more appropriate and stable functional level. Impairments are contributing to the following functional limitations: AMPA score 32.79% Patient is assessed as a moderate complexity initial evaluation [id number] on the following: History: see above Examination: see above Presentation: Evolving Decision Making: Moderate based on the impact of 32.79% Goals: Goals X1 week 1. Supine-Sit independent 2. Sit-Supine independent 3. Sit-Stand independent 4. Stand-Sit independent 5. Bed-Chair independent 6. Gait independent up to 100 feet with front wheel walker 7: Independent in Home program Plan of Care/Treatment Plan: 1-2x/day, 7 days/week x 1 week. Plan of care has been reviewed with the HUMAN FACTORS ENGINEER providing the service under Physical Therapy direction. Initiate Physical Therapy intervention for strengthening, bed mobility, transfers, gait, stairs, balance training, use of assistive device. DISCHARGE RECOMMENDATIONS: ( X ) Home with no services as long as hypoxia begins to stabilize and patient has no medical concerns requiring additional services, ( ) Home with services [specify] ( ) Home with outpatient PT ( ) SNF for continued rehabilitation ( ) Residential Care ( ) SNF versus LTC based on ability to participate and progress TREATMENT CODE/TIME: Moderate complexity initial evaluation [id number], and 1055 time of treatment, 15 minutes Harvey Parada DPT
--- NOTE | 2022-01-06 11:26 | PHA.REVIEW ---
Pharmacy Admission Review - Admission Clinical Review (Last Reviewed 01/04/22 @ 19:27 by Annalee Martin) CLL (chronic lymphocytic leukemia) (Acute 10/06/14) Intractable vomiting (Acute) Pneumonia (Acute) No Known Allergies Allergy (Unverified 06/07/15 08:12) Resuscitation Status DNR/DNI Height 5 ft 7 in Weight 82.4 kg - Renal Dosing Renal Dosing: BUN 20 mg/dL (7-18) H 01/06/22 05:39 Creatinine 1.6 mg/dL (0.70-1.30) H 01/06/22 05:39 Medications needing adjustments: Reviewed (crcl ~31ml/min zosyn 3.375gm dose ok for CAP) - Anticoagulation Anticoagulation: Hgb 9.2 g/dL (13.5-17.5) L 01/06/22 05:39 Hct 31.1 % (40.0-50.0) L 01/06/22 05:39 Plt Count 117 10^3/uL (130-400) L 01/06/22 05:39 Creatinine 1.6 mg/dL (0.70-1.30) H 01/06/22 05:39 DVT Prophylaxis: Reviewed Medications: Apixaban Therapeutic Anticoagulation: Reviewed Medications: Apixaban - Relevant Labs Sodium 140 mmol/L (136-145) 01/06/22 05:39 Potassium 4.7 mmol/L (3.5-5.1) 01/06/22 05:39 Chloride 108 mmol/L (98-107) H 01/06/22 05:39 Magnesium 2.6 mg/dL (1.8-2.4) H 01/04/22 18:32 Electrolytes, C-Reactive P, ESR: Reviewed - DM Control DM Control: Glucose 90 mg/dL (74-106) 01/06/22 05:39 Insulin Dosing: N/A - Heart Failure/CT Heart Failure/CT: Troponin I < 50 ng/L (<or=60) 01/04/22 20:45 - BP Control BP Control: Blood Pressure 107/62 If elevated: N/A - Qtc Review If Elevated: N/A (449 on admission) - Home Meds Home Med List reviewed: Reviewed (metoprolol listed and ordered on admission. thought pt was from [facility] and called for med list. found out that was old info and pt gets rx's at [facility] who has no record of filling metoprolol. MDA and order cancelled.) - Current meds Current Medication Order Review: Reviewed (O2 requirement yesterday and continuing this AM. needs to work with RT and can go home when no longer O2 dependant)
--- NOTE | 2022-01-06 12:01 | W.PM.PROGNOT ---
Date of Service Date of service: 01/06/22 Time of Service: 12:02 Assessment and Plan Assessment and plan (1) Pneumonia: Status: Acute Assessment and plan: likely aspiration from vomiting with suspected chronic underlying undiagnosed lung disease from history of tobacco abuse. His x-ray does show some infiltrate. continue Zosyn day 2 and will check a Legionella antigen and strep antigen. Attempted sputum culture on him. His Covid test is negative. will downstep to augmentin at discharge wants to go home but still with oxgyen requirements. encourage cough and deep breath, I/S and acapella, amublate and OOB may need oxygen at discharge, unfortunaetly unable to obtain today (2) CLL (chronic lymphocytic leukemia): Status: Chronic Assessment and plan: white count improved to ? baseline. (3) Intractable vomiting: Status: Resolved Assessment and plan: resolved. This vomiting was probably related a meal or viral illness. tolerating advanced diet (4) Aortic aneurysm: Status: Chronic Assessment and plan: He has aneurysms of the thoracic and abdominal aorta which are not symptomatic at this time. I doubt if he be a surgical candidate for repair. This can be follow-up as an outpatient. (5) DVT prophylaxis: Status: Acute Assessment and plan: fully anticoagulated on eliquis (6) Discharge planning issues: Status: Acute Assessment and plan: anticipate discharge to home when stable. discussed with DR Martins Subjective Subjective Patient reports: no new complaints, feels better, tolerating liquids well, tolerating a regular diet, voiding w/o difficulty and afebrile; denies shortness of breath Interval history since last seen: still with oxygen requirements, desatting to mid 80's while at rest. denies any symptoms of sob or cough. Exam Const General: cooperative, comfortable, no acute distress and not ill appearing Nutritional Appearance: overweight HENMT Mouth: oral mucosae normal Neck Neck: normal visual inspection and no JVD Resp Auscultation: clear to auscultation bilaterally, no rales and no wheezes Cardio Rate: regular rate Rhythm: regular rhythm Heart Sounds: no murmurs GI Inspection: normal to inspection and non-distended Palpation: soft, not firm and nontender Extrem General: normal to inspection, no cyanosis and no edema Objective Last Vital Signs Temp 37.9 C H 01/06/22 08:15 Pulse 77 01/06/22 08:44 Resp 20 01/06/22 08:49 BP 107/62 01/06/22 08:15 Pulse Ox 94 01/06/22 11:05 Laboratory Results - last 24 hr 01/04/22 01/06/22 01/06/22 01:12 05:39 05:39 WBC 40.13 H* RBC 2.94 L Hgb 9.2 L Hct 31.1 L MCV 105.8 H MCH 31.3 MCHC 29.6 L RDW 15.0 H Plt Count 117 L MPV 10.5 Immature Gran % 0.2 Neutrophils % 10.7 Lymphocytes % 87.3 Monocytes % 1.2 Eosinophils % 0.4 Basophils % 0.2 Nucleated RBC % 0 Absolute Neutrophils 4.29 Absolute Lymphocytes 35.03 H Absolute Monocytes 0.48 Absolute Eosinophils 0.16 Absolute Basophils 0.08 RBC Morphology See Below Poikilocytosis 2+ Sodium 140 Potassium 4.7 Chloride 108 H Carbon Dioxide 27.0 Anion Gap 5.0 BUN 20 H Creatinine 1.6 H Estimated GFR/1.73 m2 41.29 Glucose 90 Calcium 7.8 L Urine Legionella Ag Negative
[2022-01-07] MEDS: PIPERACILLIN/TAZO 3.375 GM in Normal Saline 50 ML IVPB ×3 (02:00→14:10)
[2022-01-07] MEDS: Normal Saline 500 ML 30 ML IV (02:01)
[2022-01-07] MEDS: Normal Saline Flush 10 ML SYR IVP ×3 (02:01→14:09)
[2022-01-07 07:13] VITALS: RESP 2; RESP 6
[2022-01-07] MEDS: Albuterol/Ipratropium 3 ML UPD VIAL IH ×3 (07:13→16:05)
[2022-01-07] MEDS: Apixaban 5 MG TAB PO (07:14)
[2022-01-07] MEDS: Aspirin 81 MG CHEW CH (07:14)
[2022-01-07 08:19] VITALS: BP 102/60; PULSE 74; RESP 20; TEMP 36.7; O2SAT 95
--- NOTE | 2022-01-07 08:57 | PDOC.CMPRO ---
- If Service Date Differs Date of service: 01/07/22 Time of Service: 08:57 Care Management Progress Note S/O: A: 86 year old male admitted to [facility] on 01/04/22 for Pneumonia, Intractable Vomiting, CLL P: Anticipate, Micky will discharge home when he is medically ready. He will transport via private vehicle with daughter Kate. He will follow up with community providers and discharge plan of care as prescribed.
[2022-01-07 09:43] VITALS: PULSE 109; PULSE 112; PULSE 88; PULSE 89; RESP 16; RESP 21; O2SAT 87; O2SAT 91; O2SAT 93
--- NOTE | 2022-01-07 09:54 | W.NUTRFU ---
Date of service: 01/07/22 Time of Service: 09:54 Nutrition Note NOTE: Micky if following low sodium diet and meeting 100% of nutrient /fluid needs. Not considered at nutritional risk. Time Spent in Nutritional Counseling and Treatment: 0
[2022-01-07 11:32] VITALS: RESP 16; RESP 8; O2SAT 95
--- NOTE | 2022-01-07 11:52 | DSE_ITS ---
Date of service: 01/07/22 Time of Service: 17:19 DS: Diagnosis Discharge Diagnosis (1) Pneumonia: Status: Acute Asessment and Plan: likely aspiration, received zosyn while hospitalized. no fevers, cough or shortness of breath will downstep to augmentin on discharge to complete a 5 day course. oxygen being delivered by [employer] today (2) CLL (chronic lymphocytic leukemia): Status: Chronic Asessment and Plan: stable (3) Intractable vomiting: Status: Resolved Asessment and Plan: resolved (4) Aortic aneurysm: Status: Chronic (5) COPD (chronic obstructive pulmonary disease): Status: Chronic Asessment and Plan: stable. has had oxygen at home but hadn't been using and returned or discarded the equipment. respiratory evaluation shows need for oxygen with room air sats in the 80's had obtained his oxygen from [employer], order sent and will be set up again. (6) Congestive heart failure: Status: Chronic Asessment and Plan: stable, continue lasix last echo on record here 2008 with EF of 65% with possible diastolic dysfunction. (7) Cardiac pacemaker in situ: Status: Acute Asessment and Plan: per pcp notes Discharge Plan Disposition Patient Disposition: HOME W/HOME HEALTH SERVICE Condition: Stable Discharge Details Reason For Visit: Vomiting, Pnuemonia, Admit Date/Time: 01/04/22 23:24 Admit Provider: Keagan Fernandez Attending Provider: Keagan Fernandez Primary Care Provider: Micky Rocha [facility] Course Hospital Course: This is an 86 year old male patient with history of heart failure, chronic obstructive pulmonary disease, lymphoid leukemia, cardiac pacemaker who presented to the ED after a sudden onset of intractable nausea and vomiting after eating a meal. During his visit in the ED he was noted to be hypoxic with room air sats in the 80's, and on xray noted to have infiltrates. His covid PCR was negative. He was started on zosyn to cover for aspiration. He was admitted to med/surg for further management of suspected aspiration pneumonia. He was also given antiemetic and IV fluids overnight with resolution of the vomiting. He remained afebrile and felt he had returned to his baseline yet he continued to remain hypoxic. He was encouraged to cough and deep breath but persisted in having oxygen requirements. After review of his pcp records it was noted that he had oxygen ordered previously but for some unknown reason, he removed the supplies from his house and has not been using for several months now. Respiratory therapy did evaluation and is qualifying for home oxygen. [facility] was contacted and will resupply him accordingly. he will be referred to home health nursing for routine evaluation, medication oversight and disease monitoring. discharged by private vehicle. discharge discussed with Dr Martins Home Meds and New Rx's Prescriptions: New amoxicillin-pot clavulanate 875-125 mg tablet 1 tab PO BID Qty: 5 0RF Continued Eliquis 5 MG tablet 5 mg PO BID Qty: 180 3RF metoprolol succinate 50 MG tablet extended release 24 hr 50 mg PO DAILY Qty: 90 1RF ibuprofen [Advil Liqui-Gel] 200 MG capsule 200 mg PO PRN PRNQty: 0 0RF ipratropium-albuterol 0.5 mg-3 mg(2.5 mg base)/3 mL solution for nebulization 3 ml INHALATION DAILY 0RF Label Comments: INHALE THE CONTENTS OF ONE VIAL VIA NEBULIZER EVERY 4 TO 6 HOURS NEEDED furosemide 20 mg tablet 20 mg DAILY 0RF Label Comments: TAKE ONE TABLET BY MOUTH EVERY DAY albuterol sulfate 90 mcg/actuation HFA aerosol inhaler 1 puff INHALATION PRN PRN0RF Label Comments: INHALE TWO PUFFS BY MOUTH EVERY 4 HOURS Discharge Instructions Instructions: Acute Nausea and Vomiting (DC) Additional Instructions: resume home medication as directed. wear oxygen as directed finish antibiotics as directed, even if you feel better. Stand Alone Forms: Nursing Discharge Form Referrals: Micky Rocha [Primary Care Provider] - 01/18/22 1:00 pm Activity:: Activity as Tolerated Equipment/Supplies:: 2 l/nc Diet:: Low Sodium Discharge Orders Discharge Orders: Discharge Order (Routine); Ordered 01/07/22 Ordered By: Holly Paige Discharge Data Discharge Date/Time-TO BE ENTERED AT DEPARTURE: 01/07/22 16:25 DS: Summary Time Spent with Patient providing and/or coordinating discharge services: Greater than 30 minutes Status at Discharge Functional status at discharge: independent ambulation Overall status at discharge: patient is back to baseline Mental Status: mental status grossly normal Speech and Movement: speech and movement normal Mood: congruent mood Affect: normal affect Exam Const General: cooperative, comfortable, no acute distress and not ill appearing Nutritional Appearance: overweight HENMT Mouth: oral mucosae normal Neck Neck: normal visual inspection and no JVD Resp Auscultation: clear to auscultation bilaterally, rales bilaterally at the base and no wheezes Cardio Rate: regular rate Rhythm: regular rhythm Heart Sounds: no murmurs GI Inspection: normal to inspection and non-distended Palpation: soft, not firm and nontender Extrem General: normal to inspection, no cyanosis and no edema Psych Mental Status: mental status grossly normal Speech and Movement: speech and movement normal Mood: congruent mood Affect: normal affect DS: Data Vitals/I&O Vitals and I&O: Vital Signs Temperature 36.7 C 01/07/22 08:19 Temperature Source Tympanic 01/07/22 08:19 Pulse 74 01/07/22 08:19 Pulse Rhythm Regular 01/07/22 07:45 Respiratory Rate 16 01/07/22 11:32 Respiratory Effort Non-Labored 01/07/22 07:45 Respiratory Depth Normal 01/07/22 07:45 Respiratory Pattern Normal 01/07/22 07:45 Blood Pressure 102/60 01/07/22 08:19 Blood Pressure Position Sitting 01/04/22 18:13 Pulse Oximetry 95 01/07/22 11:32 Oxygen Delivery Method Nasal Cannula 01/07/22 11:32 Oxygen Flow Rate 2 01/07/22 11:32 Pain Level 0 01/07/22 08:19 Intake & Output 01/06/22 01/06/22 01/07/22 11:59 23:59 11:59 Intake Total 460 / 1050 590 / 1050 561 / 561 Output Total 600 / 850 250 / 850 400 / 400 Balance -140 / 200 340 / 200 161 / 161 Weight 82.4 kg 81.6 kg Intake: IV 100 / 210 110 / 210 321 / 321 Oral 360 / 840 480 / 840 240 / 240 Output: Urine 600 / 850 250 / 850 400 / 400 Other: Urine Color Light Mis Light Mis Yellow Urine Appearance Clear Clear Clear Urine Odor Normal Comment Voided an unmeasured amount in toilet. Per patient he voided in the toilet Voiding Methods Urinal Urinal Urinal Data Completed and Pending Labs on day of discharge: 01/07/22 08:35 Sputum Sputum Culture - Pending Preliminary micro results at discharge 01/07/22 08:35 Sputum Culture - Pending Sputum 01/04/22 20:44 Blood Culture - Preliminary Blood NO GROWTH 48 HOURS 01/04/22 18:32 Blood Culture - Preliminary Blood NO GROWTH 48 HOURS PFSH All Active Problems (Updated 01/07/22 @ 11:55 by Holly Paige NP) Cardiac pacemaker in situ (Acute) Congestive heart failure (Chronic) COPD (chronic obstructive pulmonary disease) (Chronic) DVT prophylaxis (Acute) Discharge planning issues (Acute) Aortic aneurysm (Chronic) Dyspnea on exertion (Acute 10/06/14) a. cannot walk more than 20 or 25 feet; he feels like he is going to pass out Complete heart block (Acute 10/06/14) a. vitals are stable b. junctional escape at about 63 bpm Leukocytosis (Acute 10/06/14) a. predominance of lymphocytes, question CLL CLL (chronic lymphocytic leukemia) (Chronic 10/06/14) Benign prostatic hypertrophy (Chronic) Erectile dysfunction (Chronic) Hyperlipidemia (Chronic) GERD (gastroesophageal reflux disease) (Chronic) Hypertension (Chronic) Benign hematuria (Chronic) History of shingles (Chronic) 01/2013 H/O surgical procedure (Chronic) a. bilateral inguinal herna repairs History of tobacco use (Chronic) smoked for 50 years, quit in 1997 Pneumonia (Acute) Surgical History Pacemaker (12/07/14) Repair of inguinal hernia B/L Family History Mother Stroke Father Accidental HORSE FELL ON HIM Sister No problems noted. Brother No problems noted. Grandfather No problems noted. Grandfather No problems noted. Grandmother No problems noted. Grandmother No problems noted. Social History Smoking/Tobacco Use Status: Former Tobacco Use Smoking risk assessment performed?: Yes Alcohol Intake: never Drug use: Never Substance use type: does not use Do you feel safe at home: Yes Do you feel safe in your relationship?: Yes
[2022-01-07] MEDS: Furosemide 20 MG/2 ML VIAL IVP (12:31)
[2022-01-07 16:05] VITALS: RESP 16; RESP 8
--- NOTE | 2022-01-07 16:13 | CMDISCH_ITS ---
- If Service Date Differs Date of service: 01/07/22 Time of Service: 16:13 LACE Index Scoring Tool - Questions: Length of Stay (in days): 3 Acuity (Admit via E.D.?): Yes Comorbidities: Congestive Heart Failure, Chronic Pulmonary Disease E.D. Visits: 1 - Answers: Total Score: 12 Risk of Readmission: High Risk Care Management Discharge Reason for Hospitalization: Pneumonia, Intractable Vomiting, CLL Discharge Plan: Discharge home with [facility] RN and New Supplimental O2 through [employer]. He will transport with daughter Brenda. Weeks will follow up with his community providers and discharge plan of care as prescribed. Services Needed at Discharge: Home Health Care Services ([facility] RN, CM notified [facility]), Oxygen Therapy (New O2 through [employer])
--- NOTE | 2022-01-07 17:14 | PDOC.HHF2F ---
Home Health Certification Home Health Certification: 1. Encounter Date and Reason I certify that Micky Kohler was seen by Holly Paige on 01/07/22 and that I had a [id number] encounter with this patient that meets the physician face to face encounter requirements. 2. Clinical Findings Supporting Skilled Need and Homebound Status I certify that home health services are medically necessary, include either intermittent detention and/or physical/speech therapy, and that this patient is homebound in that absences from the home require considerable and taxing effort and are infrequent or of short duration, or are attributable to the need to receive medical care. [X] (a) Attached documentation from encounter provides clinical findings supporting skilled need and homebound status (including what assistance patient requires to leave the home). The encounter with the patient was in whole, or in part, for the following medical condition, which is the primary reason for home health care: Vomiting, Pneumonia Intermediate: routine nursing for evaluation, medication oversight, and response to treatment Homebound: patient is unable to safely leave the house unattended 3. Certification and Authentication I certify that I composed the above information based on my clinical judgment relating to this patient's medical condition and, if applicable, clinical findings communicated to me by the NPP or inpatient physician who performed the Home Health Referral. All further orders will be obtained through _Micky Rocha__(Community Based Physician - PCP)
--- NOTE | 2022-01-07 18:00 | PT.INDS ---
Date of service: 01/07/22 PT Notes Visit Reasons: Vomiting, Pnuemonia, Physical Therapy Inpatient Discharge Summary Date: 01/06/22 Dates of service: 01/06/2022 only This is a clinical summary of care provided for the duration of dates listed above. No charge was made in the completion of this documentation. Referring Doctor:Corwin Paige NP PT Orders: PT CONSULT: Evaluate and treat Precautions: Standard Patient Profile/Admitting Diagnosis: Orders received for this 86-year-old male with a history of good physical health.? Apparently a few days ago patient was having lunch with his daughter when he could barely make it through his meal and started vomiting.? He states that this has been going on for a few months but with how quickly this started coming about it was concerning.? He was brought to the emergency department and found to have an abdominal aneurysm.? Since his admission he has been found to have a fever at the time of his ED visit.? He also has been a little hypoxic with activity. Social History/Home Situation: Patient lives independently in the [facility] Equipment Owned/DME: Front-wheeled walker at baseline Subjective: NT. See most recent [employer] notes. Objective: NT. See most recent [employer] notes. Mental Status: NT. See most recent [employer] notes. Pain: NT. See most recent [employer] notes. ROM: Right Upper Extremity: Within functional limit Left Upper Extremity: Within functional limits Right Lower Extremity: Within functional limits Left Lower Extremity: Within functional limits Strength: Right Upper Extremity: Globally 5 out of 5 Left Upper Extremity: ? Globally 5 out of 5 Right Lower Extremity: Globally 5 out of 5 Left Lower Extremity: ? Globally 5 out of 5 Bed Mobility/Transfers: Not assessed as patient already in the seated position Sit-stand: Supervision Stand-sit: Supervision Gait: Assistance--under contact-guard assist Distance--20 feet in room Device--FW W Balance: Static Sitting: Normal Dynamic Sitting: Normal Static Standing: Good Dynamic Standing: Good Patient was able to come to stand on 2 repetitions, his O2 saturation ranged from 94% in the seated position to 91% in the standing position after 2-minute intervals ASSESSMENT: Patient is a? ? 86-year-old male with a history of good physical health Admitted with fever, abdominal aneurysm, slightly hypoxic Patient presents with? the following impairment level findings: Slight hypoxia with standing and activity, ambulation intolerance, Goals: Goals X1 week 1. Supine-Sit independent NOT MET 2. Sit-Supine independent NOT MET 3. Sit-Stand independent NOT MET 4. Stand-Sit independent NOT MET 5. Bed-Chair independent NOT MET 6. Gait independent up to 100 feet with front wheel walker NOT MET 7:? Independent in Home program NOT MET DISCHARGE RECOMMENDATIONS: ( X ) ? Home with no services as long as hypoxia begins to stabilize and patient has no medical concerns requiring additional services, (? ) ? Home with services [specify] (? ) ? Home with outpatient PT (? ) ? SNF for continued rehabilitation (? ) ? [facility] (? ) ? SNF versus LTC based on ability to participate and progress TREATMENT CODE/TIME: NC Thank you for the opportunity to participate in the care of this patient. Sharmaine Avina PT, DPT, CLT [facility] [place], [place]
[2022-01-08 16:27] LABS: Streptococcus Pneumoniae Ag, U Negative (Negative)
== END 2022-01-07 16:25 | disposition home health service (06) | DRG 178 ==
LOC: ER 01-05 00:17 → MS 01-05 00:19
PROVIDERS: Nurse Practitioner Acute Care; Admitting Provider Family Medicine; Emergency Provider Registered Nurse Emergency; PCP Neuromusculoskeletal Medicine & OMM; Visit Provider Family Medicine
DX: J69.0 Pneumonitis due to inhalation of food and vomit (principal); I44.2 Atrioventricular block, complete; C91.10 Chronic lymphocytic leukemia of B-cell type not having achieved remission; R09.02 Hypoxemia; I71.4 Abdominal aortic aneurysm, without rupture; I71.2 Thoracic aortic aneurysm, without rupture; R11.10 Vomiting, unspecified; Z95.0 Presence of cardiac pacemaker; N40.0 Benign prostatic hyperplasia without lower urinary tract symptoms; E78.5 Hyperlipidemia, unspecified; K21.9 Gastro-esophageal reflux disease without esophagitis; Z79.01 Long term (current) use of anticoagulants; Z87.891 Personal history of nicotine dependence; I11.0 Hypertensive heart disease with heart failure; I50.9 Heart failure, unspecified; J44.9 Chronic obstructive pulmonary disease, unspecified
CPT/HCPCS: 36415; 71250; 80048; 80053; 83690; 84145; 87040; 87449; 87635; 93005; 94618; 96361; 96365; 96375; 96376; 97162; 99285; U0005; 70450; 74176; 81003; 81015; 83605; 83735; 84484; 85025; 87070; 87205; 87899; 93010; 94640; 94667; 94668; 94760; 99222; 99233; 99239; J1941; J2405; J2543; J2765; J7620

== ENCOUNTER 2022-02-21 14:20 | Outpatient (REF) | payer MEDICARE, MEDICAID, SELFPAY ==
[2022-02-22 11:24] LABS: COVID-19 RT-PCR UVMMC Result Negative (Negative)
== END 2022-02-21 14:21 | disposition home or self-care (01) ==
LOC: LBN 14:20
PROVIDERS: PCP Nurse Practitioner Family; Visit Provider Neuromusculoskeletal Medicine & OMM
DX: R05.8 Other specified cough (principal); Z20.822 Contact with and (suspected) exposure to COVID-19
CPT/HCPCS: U0003; U0005

== ENCOUNTER 2022-02-24 09:32 | Emergency (ER) | payer MEDICARE, MEDICAID, SELFPAY ==
[2022-02-24 09:34] VITALS: BP 133/62; PULSE 92; RESP 18; TEMP 36.9; O2SAT 95
--- NOTE | 2022-02-24 09:42 | ED.GENADUL_ITS ---
Discharge Plan Disposition Patient Disposition: HOME Condition: Stable Discharge Details Clinical Impression: Acute exacerbation of chronic low back pain, Bone lesion Primary Care Provider: Manohar Yadav ED Provider: Darya Cleveland Home Meds and New Rx's Prescriptions: New oxycodone 5 mg tablet 5 mg PO Q6H PRN (Reason: pain) Qty: 10 0RF Continued Eliquis 5 MG tablet 5 mg PO BID Qty: 180 3RF metoprolol succinate 50 MG tablet extended release 24 hr 50 mg PO DAILY Qty: 90 1RF ibuprofen [Advil Liqui-Gel] 200 MG capsule 200 mg PO PRN PRNQty: 0 0RF ipratropium-albuterol 0.5 mg-3 mg(2.5 mg base)/3 mL solution for nebulization 3 ml INHALATION DAILY 0RF Label Comments: INHALE THE CONTENTS OF ONE VIAL VIA NEBULIZER EVERY 4 TO 6 HOURS NEEDED furosemide 20 mg tablet 20 mg DAILY 0RF Label Comments: TAKE ONE TABLET BY MOUTH EVERY DAY albuterol sulfate 90 mcg/actuation HFA aerosol inhaler 1 puff INHALATION PRN PRN0RF Label Comments: INHALE TWO PUFFS BY MOUTH EVERY 4 HOURS amoxicillin-pot clavulanate 875-125 mg tablet 1 tab PO BID Qty: 5 0RF Discharge Instructions Instructions: Back Pain (ED) Additional Instructions: The CT imaging today noted your back compression fractures are stable compared to previous imaging. There are lesions noted in your pelvis which may be the source of your pain. These will require further discussion and evaluation with your primary care doctor and may require additional imaging. A prescription for oxycodone has been sent electronically to your pharmacy to take as needed and directed for pain. You were also given 4 tabs of this to go for home. You have been placed on care management list to arrange for a follow-up appointment with your primary care doctor's office this week for further evaluation. Use your walker when ambulating. Return immediately to the emergency department if you develop any worsening or new concerning symptoms such as bowel or bladder incontinence, worsening pain, or inability to ambulate. Discharge Data Discharge Date/Time-TO BE ENTERED AT DEPARTURE: 02/24/22 12:30 Discharge Physician: Darya Cleveland Medical Decision Making 87-year-old male with history of GERD, hypertension, hyperlipidemia, CLL, COPD, CHF, pacemaker/AICD on chronic anticoagulation with reported history of 4 back surgeries who presents with lower back and bilateral hip pain for the past few weeks. Pain is worse with walking and weightbearing. No cauda equina symptoms. Back and hips appear normal to inspection with normal range of motion without pain or limitation. He does have tenderness to his midline lumbar spine. Neurovascularly intact. Differential diagnosis includes degenerative disc or joint disease, e, muscle strain, disc herniation. History and presentation does not appear consistent with UTI, AAA, dissection. Will give a dose of oxycodone and Valium. NSAIDs contraindicated due to Eliquis. Will refer for CT imaging of lumbar spine and hips. CT lumbar spine notes IMPRESSION: 1. Compression deformities noted at all lumbar levels, unchanged in appearance when compared to 01/04/2022. CT pelvic notes: IMPRESSION: 1. There are lucent lesions noted within the pelvis. Differential considerations would include metastatic disease versus multiple myeloma. Clinical correlation is recommended. 2. L4 compression fracture status post vertebroplasty. CT results discussed with patient. He states his pain is improved. He was able to ambulate using a walker which is his baseline and he feels comfortable going home. Patient placed on care management list to arrange for a follow-up appointment with his primary care doctor this week for further discussion of the CT finding results and for consideration for additional imaging such as PET scan or further work-up of potential metastatic disease versus multiple myeloma. He has no fever and appears nontoxic with normal vital signs I do not think indication for urgent work-up in the emergency department at this time. Usual and customary return precautions given prior to discharge. Medical Records Medical records reviewed: Yes I reviewed the patient's medical records. Imaging Data Radiologic Study: Radiologist's impression: CT Lumbar Spine Without Contrast Exam date and time: 02/24/2022 10:09 AM Age: 87 years old Clinical indication: Low back pain TECHNIQUE: Imaging protocol: Computed tomography images of the lumbar spine without contrast. Radiation optimization: All CT scans at this facility use at least one of these dose optimization techniques: automated exposure control; mA and/or kV adjustment per patient size (includes targeted exams where dose is matched to clinical indication); or iterative reconstruction. COMPARISON: CT CHEST/ABD/PEL WO 01/04/2022 9:17 PM FINDINGS: Vertebrae: There are compression fractures noted involving all lumbar levels. L1 and L4 demonstrate changes of vertebroplasty. In addition, T10 T10 has also undergone vertebroplasty. T11 and T12 demonstrates stable compression deformities. No visualized retropulsion of fracture fragments. Discs/Spinal canal/Neural foramina: No significant disc protrusion. No severe spinal canal stenosis. No significant neural foraminal narrowing. Kidneys and ureters: Bilateral exophytic simple renal cysts. Vasculature: Partially visualized infrarenal abdominal aortic aneurysm, as described on CT of the pelvis same date. Soft tissues: Unremarkable. IMPRESSION: 1. Compression deformities noted at all lumbar levels, unchanged in appearance when compared to 01/04/2022. 2. Incidental findings as above. CT Pelvis Without Contrast; Skeletal Exam date and time: 02/24/2022 10:15 AM Age: 87 years old Clinical indication: Pain; Other: Lbp TECHNIQUE: Imaging protocol: Computed tomography images of the pelvis without contrast. Exam focused on the skeletal structures. Radiation optimization: All CT scans at this facility use at least one of these dose optimization techniques: automated exposure control; mA and/or kV adjustment per patient size (includes targeted exams where dose is matched to clinical indication); or iterative reconstruction. COMPARISON: CT CHEST/ABD/PEL WO 01/04/2022 9:17 PM FINDINGS: Stomach and bowel: Colonic diverticulosis. No evidence of acute diverticulitis. Reproductive: The prostate gland is enlarged with calcification. Vasculature: Abdominal aortic atherosclerotic plaque. Infrarenal abdominal aortic aneurysm measuring 3.5 x 3.2 cm. Bones/joints: Compression fracture of L4 status post vertebroplasty. There are lucencies noted within the sacrum, iliac bones, and proximal femur bilaterally. Differential considerations would include metastatic disease versus myeloma. Soft tissues: Fat containing ventral hernia. IMPRESSION: 1. There are lucent lesions noted within the pelvis. Differential considerations would include metastatic disease versus multiple myeloma. Clinical correlation is recommended. 2. L4 compression fracture status post vertebroplasty. 3. Incidental findings as above. HPI General Mode of arrival: EMS . Date/Time Provider Initiated Documentation: 02/24/22 09:53 . Limitations to Documentation: no limitations . Information obtained by: patient . HPI Narrative: Patient is an 87-year-old male with a history of GERD, hypertension, hyperlipidemia, COPD, CHF, pacemaker/AICD on chronic anticoagulation with reported history of 4 back surgeries presents for lower back and bilateral hip pain for the past 2 weeks. Patient states he awoke with the pain a few weeks ago. He denies any known injury. He states the pain is minimal at rest and mainly occurs with walking and weightbearing. He states the pain is in his midline lower back and radiates to both hips. He denies any fever, abdominal pain, bowel or bladder incontinence, leg pain, weakness or numbness. He states he has been taking Tylenol and alternating ice and heat without relief. Related Data Home Medications Medication Instructions Recorded Confirmed ibuprofen 200 mg capsule (Advil 200 mg PO PRN PRN #0 10/08/14 02/24/22 Liqui-Gel) apixaban 5 mg tablet (Eliquis) 5 mg PO BID #180 tab 03/01/15 02/24/22 metoprolol succinate 50 mg 50 mg PO DAILY #90 tab-cap 06/07/15 02/24/22 tablet,extended release 24 hr albuterol sulfate 90 mcg/actuation 1 puff INHALATION PRN PRN 01/05/22 02/24/22 aerosol inhaler furosemide 20 mg tablet 20 mg DAILY 01/05/22 02/24/22 ipratropium 0.5 mg-albuterol 3 mg 3 ml INHALATION DAILY 01/05/22 02/24/22 (2.5 mg base)/3 mL nebulization soln amoxicillin 875 mg-potassium 1 tab PO BID #5 tab 01/07/22 02/24/22 clavulanate 125 mg tablet oxycodone 5 mg tablet 5 mg PO Q6H PRN #10 tab 02/24/22 Previous Rx's Medication Instructions Recorded ibuprofen 200 mg capsule (Advil 200 mg PO PRN PRN #0 10/08/14 Liqui-Gel) amoxicillin 875 mg-potassium 1 tab PO BID #5 tab 01/07/22 clavulanate 125 mg tablet oxycodone 5 mg tablet 5 mg PO Q6H PRN #10 tab 02/24/22 Allergies Allergy/AdvReac Type Severity Reaction Status Date / Time No Known Allergies Allergy Unverified 02/24/22 09:38 General Stated Complaint: Nk/Back Pain RASHAAD: 4 Review of Systems All systems reviewed & are unremarkable except as noted in HPI and below Constitutional Constitutional: Denies chills, Denies excessive sweating, Denies fatigue, Denies fever(s), Denies weakness and Denies weight loss Eyes Eyes: Reports system reviewed and no additional complaints, except as documented and Denies blurry vision ENT Ears, Nose, Mouth, and Throat: Denies vertigo, Denies dizziness, Denies otalgia, Denies nasal congestion, Denies sore throat and Denies throat swelling Cardiovascular Cardiovascular: Denies chest pain, Denies syncope, Denies rapid heart rate and Denies dyspnea Respiratory Respiratory: Denies chest congestion, Denies cough, Denies pain on inspiration and Denies dyspnea Gastrointestinal Gastrointestinal: Denies abdominal pain, Denies diarrhea and Denies vomiting Genitourinary Genitourinary: Denies hematuria, Denies dysuria and Denies flank pain Musculoskeletal Musculoskeletal: Reports back pain and Denies joint swelling Comments: b/l hip pain Integumentary/Breasts Skin/Breast: Denies lesions and Denies rash Neurologic Neurologic: Denies behavioral changes, Denies confusion, Denies vertigo, Denies dizziness, Denies syncope, Denies localized weakness and Denies weakness Psychiatric Psychiatric: Denies behavioral changes, Denies confusion and Denies depression Endocrine Endocrine: Denies excessive sweating and Denies fatigue Hematologic/Lymphatic Hematologic/Lymphatic: Denies easy bruising and Denies lymphadenopathy Allergic/Immunologic Allergic/Immunologic: Denies throat swelling PFSH All Active Problems Acute exacerbation of chronic low back pain (Acute) Bone lesion (Acute) Cardiac pacemaker in situ (Acute) Congestive heart failure (Chronic) COPD (chronic obstructive pulmonary disease) (Chronic) Dyspnea on exertion (Acute 10/06/14) a. cannot walk more than 20 or 25 feet; he feels like he is going to pass out Complete heart block (Acute 10/06/14) a. vitals are stable b. junctional escape at about 63 bpm Leukocytosis (Acute 10/06/14) a. predominance of lymphocytes, question CLL Benign prostatic hypertrophy (Chronic) Erectile dysfunction (Chronic) Hyperlipidemia (Chronic) GERD (gastroesophageal reflux disease) (Chronic) Hypertension (Chronic) Benign hematuria (Chronic) History of shingles (Chronic) 01/2013 H/O surgical procedure (Chronic) a. bilateral inguinal herna repairs History of tobacco use (Chronic) smoked for 50 years, quit in 1997 Medical History (Updated 02/24/22 @ 11:51 by Darya Cleveland DO) Aortic aneurysm CLL (chronic lymphocytic leukemia) (10/06/14) Pneumonia Surgical History Pacemaker (12/07/14) Repair of inguinal hernia B/L Family History Mother Stroke Father Accidental HORSE FELL ON HIM Sister No problems noted. Brother No problems noted. Grandfather No problems noted. Grandfather No problems noted. Grandmother No problems noted. Grandmother No problems noted. Social History Smoking/Tobacco Use Status: Former Tobacco Use Smoking risk assessment performed?: Yes Alcohol Intake: never Drug use: Never Substance use type: does not use Do you feel safe at home: Yes Do you feel safe in your relationship?: Yes Exam Const General: cooperative Orientation: alert, awake and oriented x3 HENMT Head: normal to inspection Ears: hearing grossly normal bilaterally, external ears normal and TM's normal bilaterally General nose exam: external nose normal Face and sinus: normal facial exam Mouth: oral mucosae normal Teeth and gingiva: dentition normal Throat: posterior oropharynx normal Eyes General: appearance normal, both eyes and all related structures Eyelids: eyelids normal Pupils: PERRL EOM: EOM intact bilaterally Neck Neck: normal visual inspection Lymphatic: no lymphadenopathy noted Chest Chest: normal inspection of the chest Resp Effort & Inspection: normal respiratory effort and able to speak in complete sentences Auscultation: clear to auscultation bilaterally Cardio Rate: regular rate Rhythm: regular rhythm GI Inspection: normal to inspection Palpation: soft, not firm, no guarding, no hepatosplenomegaly, no masses and nontender Auscultation: normal bowel sounds Back/Spine/Pelvis Thoracic/Lumbar Spine: thoracic and lumbar spine normal to inspection, No thoracic spinal tenderness and lumbar spinal tenderness Pelvis: no pain with anterior-posterior compression Skin General skin exam: no rashes or lesions noted Neuro General: patient alert and patient awake Cognition: normal cognition Speech: speech normal Gait: normal gait Motor: muscle tone normal throughout Sensory Exam: no sensory deficits noted DTR's: Rt Patellar: 1+, Lt Patellar: 1+, Rt Ankle: 1+ and Lt Ankle: 1+ Plantar Reflexes: Equivocal: bilateral (negative babinski b/l ) Extrem General: normal to inspection, full ROM and capillary refill normal Other: No pain in bilateral hips, knees, ankles or feet with range of motion. Hips and buttocks appear normal to inspection bilaterally. Bilateral DP/PT pulses intact. Psych Appearance: grossly normal Mental Status: mental status grossly normal Speech and Movement: speech and movement normal Affect: normal affect Thought Process: normal Course Vital Signs Vital signs: Vital Signs Temperature 98.4 F 02/24/22 09:34 Pulse 92 H 02/24/22 09:34 Respiratory Rate 18 02/24/22 09:34 Blood Pressure 133/62 02/24/22 09:34 Pulse Oximetry 95 02/24/22 09:34 Temperature 98.4 F 02/24/22 09:34 Temperature Source Temporal Artery Scan 02/24/22 09:34 Pulse 92 H 02/24/22 09:34 Respiratory Rate 18 02/24/22 09:34 Respiratory Effort Non-Labored 02/24/22 09:37 Blood Pressure 133/62 02/24/22 09:34 Blood Pressure Position Sitting 02/24/22 09:34 Pulse Oximetry 95 02/24/22 09:34 Oxygen Delivery Method Room Air 02/24/22 09:34 Oxygen Flow Rate 0 02/24/22 09:34 Pain Level 10 02/24/22 09:39
[2022-02-24] MEDS: oxyCODONE 5 MG TAB PO (10:01)
[2022-02-24] MEDS: diazePAM 5 MG TAB PO (10:01)
--- NOTE | 2022-02-24 10:25 | DI.CT_ITS ---
Exam(s) CT PELVIC WO CT LUMBAR SPINE WO EXAM: CT LUMBAR SPINE WO CLINICAL HISTORY: lower back pain, r/o arthritis TECHNIQUE: COMPARISON: CT CT CHEST/ABD/PEL WO from 01/04/[address] PELVIC WO from 02/24/2022 FINDINGS: CT examination of the lumbosacral spine and CT examination of the pelvis were performed without contr ast administration and are interpreted in conjunction. There is marked bony demineralization. The visualized lumbar vertebrae and lower thoracic vertebrae all have anterior compression deformities period there are vertebroplasties at the T10, L1, and L4 le vels. There is no evidence of acute fracture and there has been no gross interval change in appearan ce of the lumbar spine in comparison with examination of January 04. There is no pelvic fracture identified. No evidence of a sacral insufficiency fracture. No hip frac ture identified. 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 IMPRESSION: Multiple vertebral body compressive lesions and multiple vertebroplasties as described above, no evid ence of acute fracture. Due to the severe bony demineralization, it would be impossible to exclude n eoplastic cause for demineralization. Correlation with pelvic MRI may be considered if there is clin ical suspicion for metastatic disease or multiple myeloma. RADIATION DOSE DELIVERED: 722.69mGy.cm Total DLP !Error CTDIvol RADIATION OPTIMIZATION: All CT scans at this facility use at least one of these dose optimization te chniques: automated exposure control; mA and/or kV adjustment per patient size (includes targeted exa ms where dose is matched to clinical indication); or iterative reconstruction.
--- NOTE | 2022-02-24 10:46 | DI.VRAD_ITS ---
PROCEDURE INFORMATION: Exam: CT Pelvis Without Contrast; Skeletal Exam date and time: 02/24/2022 10:15 AM Age: 87 years old Clinical indication: Pain; Other: Lbp TECHNIQUE: Imaging protocol: Computed tomography images of the pelvis without contrast. Exam focused on the skeletal structures. Radiation optimization: All CT scans at this facility use at least one of these dose optimization techniques: automated exposure control; mA and/or kV adjustment per patient size (includes targeted exams where dose is matched to clinical indication); or iterative reconstruction. COMPARISON: CT CHEST/ABD/PEL WO 01/04/2022 9:17 PM FINDINGS: Stomach and bowel: Colonic diverticulosis. No evidence of acute diverticulitis. Reproductive: The prostate gland is enlarged with calcification. Vasculature: Abdominal aortic atherosclerotic plaque. Infrarenal abdominal aortic aneurysm measuring 3.5 x 3.2 cm. Bones/joints: Compression fracture of L4 status post vertebroplasty. There are lucencies noted within the sacrum, iliac bones, and proximal femur bilaterally. Differential considerations would include metastatic disease versus myeloma. Soft tissues: Fat containing ventral hernia. IMPRESSION: 1. There are lucent lesions noted within the pelvis. Differential considerations would include metastatic disease versus multiple myeloma. Clinical correlation is recommended. 2. L4 compression fracture status post vertebroplasty. 3. Incidental findings as above. Dictated and Authenticated by: Edinson Coello MD. Ordering:CHARLENE Lackey MD
--- NOTE | 2022-02-24 10:58 | DI.VRAD_ITS ---
PROCEDURE INFORMATION: Exam: CT Lumbar Spine Without Contrast Exam date and time: 02/24/2022 10:09 AM Age: 87 years old Clinical indication: Low back pain TECHNIQUE: Imaging protocol: Computed tomography images of the lumbar spine without contrast. Radiation optimization: All CT scans at this facility use at least one of these dose optimization techniques: automated exposure control; mA and/or kV adjustment per patient size (includes targeted exams where dose is matched to clinical indication); or iterative reconstruction. COMPARISON: CT CHEST/ABD/PEL WO 01/04/2022 9:17 PM FINDINGS: Vertebrae: There are compression fractures noted involving all lumbar levels. L1 and L4 demonstrate changes of vertebroplasty. In addition, T10 T10 has also undergone vertebroplasty. T11 and T12 demonstrates stable compression deformities. No visualized retropulsion of fracture fragments. Discs/Spinal canal/Neural foramina: No significant disc protrusion. No severe spinal canal stenosis. No significant neural foraminal narrowing. Kidneys and ureters: Bilateral exophytic simple renal cysts. Vasculature: Partially visualized infrarenal abdominal aortic aneurysm, as described on CT of the pelvis same date. Soft tissues: Unremarkable. IMPRESSION: 1. Compression deformities noted at all lumbar levels, unchanged in appearance when compared to 01/04/2022. 2. Incidental findings as above. Dictated and Authenticated by: Edinson Coello MD. Ordering:CHARLENE Lackey MD
--- NOTE | 2022-02-24 12:22 | NUR.NOTE ---
Dr. Cleveland requesting follow up with PCP this week for lesions in pelvis and back pain PCP Manohar Yadav Request faxed [facility]
== END 2022-02-24 12:30 | disposition home or self-care (01) ==
PROVIDERS: Emergency Provider Physician Assistant; PCP Nurse Practitioner Family
DX: M54.50 Low back pain, unspecified (principal); G89.29 Other chronic pain; M89.9 Disorder of bone, unspecified
CPT/HCPCS: 99284; 72131; 72192; 99283

== ENCOUNTER 2022-04-29 04:45 | Observation (INO) | payer MEDICARE, MEDICAID, SELFPAY ==
[2022-04-29] VITALS (7 sets, daily range): BP systolic 112–118; BP diastolic 47–68; PULSE 67–87; RESP 8–24; TEMP 36.1–36.7; O2SAT 94–98
--- NOTE | 2022-04-29 05:04 | W.ED.GENAD ---
Discharge Plan Disposition Patient Disposition: [facility] INPATIENT Condition: Stable Discharge Details Chief Complaint: Nk/Back Pain Clinical Impression: Back pain Primary Care Provider: Manohar Yadav ED Provider: Yosef Yi Home Meds and New Rx's Prescriptions: No Action famotidine 20 mg tablet 20 mg PO BID acetaminophen [Tylenol 8 Hour] 650 mg tablet extended release 1,300 mg PO Q8H PRN (Reason: fever or pain) Qty: 1 0RF Rx Instructions: OTC Eliquis 5 MG tablet 5 mg PO BID Qty: 180 ipratropium-albuterol 0.5 mg-3 mg(2.5 mg base)/3 mL solution for nebulization 3 ml INHALATION DAILY Label Comments: INHALE THE CONTENTS OF ONE VIAL VIA NEBULIZER EVERY 4 TO 6 HOURS NEEDED furosemide 20 mg tablet 20 mg DAILY Label Comments: TAKE ONE TABLET BY MOUTH EVERY DAY albuterol sulfate 90 mcg/actuation HFA aerosol inhaler 1 puff INHALATION PRN PRN Label Comments: INHALE TWO PUFFS BY MOUTH EVERY 4 HOURS Medical Decision Making 87 yo male with hx of CLL, gerd, htn, pacemaker, who comes in with cc of back pain for a week, though in his chart he has chronic back pain listed with his pcp notes. He denies any new falls or trauma, no abdomen pain, no fevers, chills. He has been having a hard time getting around due to the pain. HE states when he lays still he has no pain but when he tries to get around he has lower to mid back pain. He had a ct of his lumbar spine showing Multiple vertebral body compressive lesions and multiple vertebroplasties as described above, no evidence of acute fracture.? Due to the severe bony demineralization, it would be impossible to exclude neoplastic cause for demineralization. He is in no distress laying on his left side which he states is comfortable for him. He has tenderness of the lumbar spine without stepoffs or deformities, no saddle anesthesia. He does state he had an MRI done of his back at [facility] this past week. Suspect this is acute on chronic back pain, Will try to get the [facility] [place] report and treat his pain. Given no falls or trauma do not feel emergent ct or xray indicated. cmp unremarkable, because of his cll cbc still pending but he states he is not comfortable going home as he can't care for himself in his current state. He normally can barely care for himself and can't get his meals and other necessities done now. May end up needing rehab placement, will discuss with hospitalist for pain control and to work with pt. Differential Diagnosis Differential Diagnosis: muscle spasm, degenerative disease Medical Records Medical records reviewed: Yes I reviewed the patient's medical records. Lab Data Lab results reviewed: Yes I reviewed the patient's lab results. HPI General Mode of arrival: EMS. Date/Time Provider Initiated Documentation: 04/29/22 04:53. Limitations to Documentation: no limitations. Information obtained by: patient. History of Present Illness 87 year old M presents to the emergency department with the chief complaint of back pain, described as moderate, Quality is described as aching, and is localized to the back. Patient reports no radiation. Patient started experiencing this day(s) (5) and it has been intermittent. No relieving factors improve symptom(s), No exacerbating factors reported . Patient notes no other symptoms.. Patient did receive the following treatments prior to arrival, none Related Data Home Medications Medication Instructions Recorded Confirmed apixaban 5 mg tablet (Eliquis) 5 mg PO BID #180 tabs 03/01/15 04/29/22 albuterol sulfate 90 mcg/actuation 1 puff inhalation PRN PRN 01/05/22 03/26/22 aerosol inhaler furosemide 20 mg tablet 20 mg DAILY 01/05/22 04/29/22 ipratropium 0.5 mg-albuterol 3 mg 3 ml inhalation DAILY 01/05/22 04/29/22 (2.5 mg base)/3 mL nebulization soln famotidine 20 mg tablet 20 mg PO BID 03/13/22 04/29/22 acetaminophen 650 mg 1,300 mg PO Q8H PRN fever or pain 03/26/22 04/29/22 tablet,extended release (Tylenol 8 #1 tab Hour) Previous Rx's Medication Instructions Recorded acetaminophen 650 mg 1,300 mg PO Q8H PRN fever or pain 03/26/22 tablet,extended release (Tylenol 8 #1 tab Hour) Allergies Allergy/AdvReac Type Severity Reaction Status Date / Time No Known Allergies Allergy Unverified 04/29/22 04:52 General Stated Complaint: Nk/Back Pain RASHAAD: 3 Review of Systems All systems reviewed & are unremarkable except as noted in HPI and below Constitutional Constitutional: Denies chills, Denies fever(s) and Denies weakness Cardiovascular Cardiovascular: Denies chest pain and Denies dyspnea Respiratory Respiratory: Denies cough and Denies dyspnea Gastrointestinal Gastrointestinal: Denies abdominal pain, Denies nausea and Denies vomiting Genitourinary Genitourinary: Denies dysuria Integumentary/Breasts Skin/Breast: Denies rash Neurologic Neurologic: Denies weakness PFSH All Active Problems Back pain (Acute) Sarcoma of femur (Acute) Risk for falls (Acute) CLL (chronic lymphocytic leukemia) (Acute) 2021-followed by [facility] oncology, has been relatively stable has not required any intervention Pacemaker (Acute 10/10/14) Hypertension (Chronic 11/30/14) GERD (gastroesophageal reflux disease) (Chronic 11/30/14) Complete heart block (Acute 10/07/14) Wears dentures (Acute 11/30/14) MR (mitral regurgitation) (Chronic 10/10/14) MILD ECHO 09/2014 Poor posture (Acute) MDS (myelodysplastic syndrome) (Acute) Hypogammaglobulinemia (Acute) Dementia (Chronic) Renal insufficiency (Chronic) DVT prophylaxis (Acute) Anemia (Chronic) Chronic, followed by oncology-[facility] Pain of left hip joint (Acute) Atherosclerosis of coronary artery without angina pectoris (Acute) Needs assistance while at home (Acute) Closed wedge fracture of lumbar vertebra (Acute) Heartburn (Acute) General unsteadiness (Acute) Lack of energy (Acute) Backache (Acute) Pain in thoracic spine (Acute) Kidney stone (Chronic) Hydronephrosis (Acute) Drug induced constipation (Acute) Diaphragmatic hernia (Acute) Bilateral pleural effusion (Acute) Abdominal aortic aneurysm without rupture (Acute) Heart disease (Acute) Chronic congestive heart failure (Acute) Myocardial infarction (Chronic) Depressive disorder (Chronic) Bilateral hearing loss (Acute) Cardiac pacemaker in situ (Acute) Congestive heart failure (Chronic) COPD (chronic obstructive pulmonary disease) (Chronic) Dyspnea on exertion (Acute 10/06/14) a. cannot walk more than 20 or 25 feet; he feels like he is going to pass out Complete heart block (Acute 10/06/14) a. vitals are stable b. junctional escape at about 63 bpm Leukocytosis (Acute 10/06/14) a. predominance of lymphocytes, question CLL Benign prostatic hypertrophy (Chronic) Erectile dysfunction (Chronic) Hyperlipidemia (Chronic) GERD (gastroesophageal reflux disease) (Chronic) Hypertension (Chronic) Benign hematuria (Chronic) History of shingles (Chronic) 01/2013 H/O surgical procedure (Chronic) a. bilateral inguinal herna repairs History of tobacco use (Chronic) smoked for 50 years, quit in 1997 Medical History (Updated 04/29/22 @ 05:53 by Yosef Yi MD) Aortic aneurysm Claustrophobia (11/30/14) CLL (chronic lymphocytic leukemia) (10/06/14) B-cell Pneumonia Shingles (11/30/14) Surgical History (Updated 03/13/22 @ 13:17 by Luci Morris) H/O kyphoplasty L-4, T-10, L-1 History of thoracentesis (~08/30/19) 1250mL of pleural fluid removed Pacemaker (12/07/14) cardiac- in situ Repair of inguinal hernia B/L Family History (Updated 02/28/22 @ 09:29 by Luci Morris) Mother , 90 Stroke Father , 75 Accidental HORSE FELL ON HIM Heart disease Son , 50 Alcohol use disorder Son , 60 Alcohol use disorder Social History (Updated 03/14/22 @ 16:54 by Gemini Ruiz) Smoking/Tobacco Use Status: Former Tobacco Use Quit Date: 10/20/97 Second Hand Exposure: Yes Smoking risk assessment performed?: Yes Alcohol Intake: former Drug use: Never Substance use type: does not use Caregiver/Support person: No Household members: none Housing: apartment Do you need help understanding health information?: Always Pets and animals: No Sexually active: No Do you think of yourself as: straight/heterosexual Current gender identity: male What is your relationship status?: How often do you talk on the phone with friends or family?: three or more times per week How often do you get together with friends or relatives?: three or more times per week How often do you attend mu-ism or worship services?: decline to answer Do you belong to any clubs or organized social groups?: no Panel score (0-1 are the most socially isolated patients): 1 What type of physical activity do you participate in: none Seatbelt use: always Helmet use: No Drive intox or ride w/intox cdl a driver: No Do you feel safe at home: Yes Do you feel safe in your relationship?: Yes Exam Const General: no acute distress Orientation: alert HENMT Head: normal to inspection Ears: external ears normal General nose exam: external nose normal Mouth: moist mucous membranes Eyes General: appearance normal, both eyes and all related structures Neck Neck: normal visual inspection Resp Effort & Inspection: normal respiratory effort and able to speak in complete sentences Cardio Rate: regular rate Back/Spine/Pelvis Back: no CVA tenderness Skin General skin exam: no rashes or lesions noted Neuro General: patient alert and patient oriented x3 Extrem General: normal to inspection Psych Mental Status: mental status grossly normal Course Vital Signs Vital signs: Vital Signs Temperature 36.7 C 04/29/22 04:49 Pulse 86 04/29/22 04:49 Respiratory Rate 14 04/29/22 04:49 Blood Pressure 116/47 L 04/29/22 04:49 Pulse Oximetry 94 04/29/22 04:49 Temperature 36.7 C 04/29/22 04:49 Temperature Source Temporal Artery Scan 04/29/22 04:49 Pulse 86 04/29/22 04:49 Respiratory Rate 14 04/29/22 04:49 Respiratory Effort Non-Labored 04/29/22 04:54 Blood Pressure 116/47 L 04/29/22 04:49 Blood Pressure Position Supine 04/29/22 04:49 Pulse Oximetry 94 04/29/22 04:49 Oxygen Delivery Method Room Air 04/29/22 04:49 Oxygen Flow Rate 0 04/29/22 04:49 Pain Level 10 04/29/22 04:49
[2022-04-29 05:08] LABS: Abs Immature Grans 0.11 10^3/uL (0.0-0.06); HCT 34.4 % (40.0-50.0); HGB 10.7 g/dL (13.5-17.5); MCH 31.8 pg (27.0-33.0); MCHC 31.1 % (32.0-36.0); MCV 102 fL (80-95); MPV 10.4 fL (8.0-11.0); Platelet Count 141 10^3/uL (130-400); RBC 3.37 10^6/uL (4.36-5.78); RDW 14.8 % (11.8-14.1); RDW-SD 55.7 fL
[2022-04-29] MEDS: MORPHine 10 MG/ML VIAL 2 MG IVP ×2 (05:09→05:50)
[2022-04-29 05:18] LABS: WBC 47.46 10^3/uL (4.4-10.8)
[2022-04-29 05:22] LABS: INR 1.1 (0.9-1.1); PTT Activated 23.8 sec (21.0-27.5); Prothrombin Time 10.7 sec (9.3-11.0)
[2022-04-29 05:32] LABS: ALT 12 U/L (16-63); AST 11 U/L (15-37); Alkaline Phosphatase 75 U/L (46-116); Anion Gap 7.4 mmol/L (3-11); BUN 33 mg/dL (7-18); Bilirubin, Total 0.4 mg/dL (0.2-1.0); CO2 29.6 mmol/L (21.0-32.0); CREATININE 1.8 mg/dL (0.70-1.30); Calcium 8.6 mg/dL (8.5-10.1); Chloride 105 mmol/L (98-107); Estimated GFR 35.95 (mL/min/1.73m2); Glucose 112 mg/dL (74-106); Magnesium 2.4 mg/dL (1.8-2.4); Potassium 4.4 mmol/L (3.5-5.1); Sodium 142 mmol/L (136-145); Total Protein 6.2 g/dL (6.4-8.2)
[2022-04-29] MEDS: Acetaminophen 500 MG TAB 1000 MG PO (05:52)
--- NOTE | 2022-04-29 06:01 | W.PM.HP.N ---
Date of service: 04/29/22 Time of Service: 06:02 Assessment and Plan Assessment and plan (1) Back pain: Status: Acute Assessment and plan: Low back pain, acute on chronic. No specific precipitant evident for worsening of symptoms. Given lack of trauma, recent MRI and lack of neurological deficits I do not feel that repeat imaging is necessary at this time. Will admit for PT and pain management. Labs all pending at this time. Reviewed ADs, requests DNR. History of Present Illness History of Present Illness Chief Complaint: low back pain Narrative: 87 male with CLL, chronic back in setting of multiple spinal fractures, CT 03/10 demonstrates fractures at multiple thoracic levels and all lumbar levels with corresponding vertebroplasties L1-4; Mri this past week at [facility] shows similar findings. Patient lives alone. States his pain is worse over past week and comes in this morning reporting that he cannot manage any longer. No specific injury, no fall, no trauma. Feels comfortable at rest, but pain with any movement. I was asked to evaluate for admission. No further imaging done in ER, labs all pending. Review of Systems Narrative: per HPI PFSH All Active Problems Back pain (Acute) Sarcoma of femur (Acute) Risk for falls (Acute) CLL (chronic lymphocytic leukemia) (Acute) 2021-followed by [facility] oncology, has been relatively stable has not required any intervention Pacemaker (Acute 10/10/14) Hypertension (Chronic 11/30/14) GERD (gastroesophageal reflux disease) (Chronic 11/30/14) Complete heart block (Acute 10/07/14) Wears dentures (Acute 11/30/14) MR (mitral regurgitation) (Chronic 10/10/14) MILD ECHO 09/2014 Poor posture (Acute) MDS (myelodysplastic syndrome) (Acute) Hypogammaglobulinemia (Acute) Dementia (Chronic) Renal insufficiency (Chronic) DVT prophylaxis (Acute) Anemia (Chronic) Chronic, followed by oncology-[facility] Pain of left hip joint (Acute) Atherosclerosis of coronary artery without angina pectoris (Acute) Needs assistance while at home (Acute) Closed wedge fracture of lumbar vertebra (Acute) Heartburn (Acute) General unsteadiness (Acute) Lack of energy (Acute) Backache (Acute) Pain in thoracic spine (Acute) Kidney stone (Chronic) Hydronephrosis (Acute) Drug induced constipation (Acute) Diaphragmatic hernia (Acute) Bilateral pleural effusion (Acute) Abdominal aortic aneurysm without rupture (Acute) Heart disease (Acute) Chronic congestive heart failure (Acute) Myocardial infarction (Chronic) Depressive disorder (Chronic) Bilateral hearing loss (Acute) Cardiac pacemaker in situ (Acute) Congestive heart failure (Chronic) COPD (chronic obstructive pulmonary disease) (Chronic) Dyspnea on exertion (Acute 10/06/14) a. cannot walk more than 20 or 25 feet; he feels like he is going to pass out Complete heart block (Acute 10/06/14) a. vitals are stable b. junctional escape at about 63 bpm Leukocytosis (Acute 10/06/14) a. predominance of lymphocytes, question CLL Benign prostatic hypertrophy (Chronic) Erectile dysfunction (Chronic) Hyperlipidemia (Chronic) GERD (gastroesophageal reflux disease) (Chronic) Hypertension (Chronic) Benign hematuria (Chronic) History of shingles (Chronic) 01/2013 H/O surgical procedure (Chronic) a. bilateral inguinal herna repairs History of tobacco use (Chronic) smoked for 50 years, quit in 1997 Medical History Aortic aneurysm Claustrophobia (11/30/14) CLL (chronic lymphocytic leukemia) (10/06/14) B-cell Pneumonia Shingles (11/30/14) Surgical History H/O kyphoplasty L-4, T-10, L-1 History of thoracentesis (~08/30/19) 1250mL of pleural fluid removed Pacemaker (12/07/14) cardiac- in situ Repair of inguinal hernia B/L Family History Mother , 90 Stroke Father , 75 Accidental HORSE FELL ON HIM Heart disease Son , 50 Alcohol use disorder Son , 60 Alcohol use disorder Social History Smoking/Tobacco Use Status: Former Tobacco Use Quit Date: 10/20/97 Second Hand Exposure: Yes Smoking risk assessment performed?: Yes Alcohol Intake: former Drug use: Never Substance use type: does not use Caregiver/Support person: No Household members: none Housing: apartment Do you need help understanding health information?: Always Pets and animals: No Sexually active: No Do you think of yourself as: straight/heterosexual Current gender identity: male What is your relationship status?: How often do you talk on the phone with friends or family?: three or more times per week How often do you get together with friends or relatives?: three or more times per week How often do you attend anglican or evangelical services?: decline to answer Do you belong to any clubs or organized social groups?: no Panel score (0-1 are the most socially isolated patients): 1 What type of physical activity do you participate in: none Seatbelt use: always Helmet use: No Drive intox or ride w/intox transport truck driver: No Do you feel safe at home: Yes Do you feel safe in your relationship?: Yes Meds Allergies and Home Medications Allergies Allergy/AdvReac Type Severity Reaction Status Date / Time No Known Allergies Allergy Unverified 04/29/22 04:52 Home Medications Medication Instructions Recorded Confirmed Type apixaban 5 mg tablet (Eliquis) 5 mg PO BID #180 tabs 03/01/15 04/29/22 History albuterol sulfate 90 mcg/actuation 1 puff inhalation PRN PRN 01/05/22 03/26/22 History aerosol inhaler furosemide 20 mg tablet 20 mg DAILY 01/05/22 04/29/22 History ipratropium 0.5 mg-albuterol 3 mg 3 ml inhalation DAILY 01/05/22 04/29/22 History (2.5 mg base)/3 mL nebulization soln famotidine 20 mg tablet 20 mg PO BID 03/13/22 04/29/22 History acetaminophen 650 mg 1,300 mg PO Q8H PRN fever or pain 03/26/22 04/29/22 Rx tablet,extended release (Tylenol 8 #1 tab Hour) Exam Narrative Exam Narrative: 116/47, 80, 36.5, 14, 95% 2l (94% RA). Lying left lateral decubitus position. HEENT atraumatic; neck supple; lungs clear; heart RRR with 2/6 systolic murmur best LLSB; abdomen soft and NT; /rectal deferred; extremities w/o edema; neuro Ox3, lucid, motor 5/5 throughout, sensory intact light touch Results Labs Result diagrams: 04/29/22 05:00 04/29/22 05:00 Labs: Laboratory Results - last 24 hr 04/29/22 04/29/22 05:00 05:00 PT 10.7 INR 1.1 APTT 23.8 Sodium 142 Potassium 4.4 Chloride 105 Carbon Dioxide 29.6 Anion Gap 7.4 BUN 33 H Creatinine 1.8 H Estimated GFR/1.73 m2 35.95 Glucose 112 H Calcium 8.6 Magnesium 2.4 Total Bilirubin 0.4 AST 11 L ALT 12 L Alkaline Phosphatase 75 Total Protein 6.2 L Albumin 4.0 Last Vital Signs Temp 36.7 C 04/29/22 04:49 Pulse 86 04/29/22 04:49 Resp 14 04/29/22 04:49 BP 116/47 L 04/29/22 04:49 Pulse Ox 95 04/29/22 05:17
[2022-04-29 06:08] LABS: Absolute Eosinophil Count 0.47 10^3/uL (0.0-0.7); Absolute Lymphocyte Count 40.34 10^3/uL (1.2-3.4); Absolute Monocyte Count 0.47 10^3/uL (0.1-0.8); Absolute Neutrophil Count 5.22 10^3/uL (1.2-6.7)
[2022-04-29 06:09] LABS: Other Cells % 2
[2022-04-29 06:11] LABS: Diff Comment Manual Differential; RBC Morphology Normal
[2022-04-29 06:58] LABS: Source Nasal/Nares
[2022-04-29 07:48] LABS: COVID-19 PCR Negative (Negative)
[2022-04-29] MEDS: Furosemide 20 MG TAB PO (08:51)
[2022-04-29] MEDS: Famotidine 20 MG TAB PO (08:51)
[2022-04-29] MEDS: Apixaban 5 MG TAB PO (08:51)
[2022-04-29] MEDS: Baclofen 10 MG TAB 5 MG PO (08:51)
[2022-04-29] MEDS: Normal Saline Flush 10 ML SYR IVP (08:51)
[2022-04-29] MEDS: Albuterol/Ipratropium 3 ML UPD VIAL IH (09:10)
--- NOTE | 2022-04-29 11:20 | IN_ITS ---
Date of service: 04/29/22 Time of Service: 11:20 PT Notes Visit Reasons: Low Back Pain Physical Therapy Inpatient Initial Evaluation Date: 04/29/2022 Referring Doctor: Nicholas Angel MD PT Orders: PT CONSULT: Exacerbation Chronic Cond Precautions: Fall. Standard. Activity as tolerated. Patient Profile/Admitting Diagnosis: Micky is an 87-year-old male patient who presented to the ED on 03/26/2022 due to week-long worsening back pain. Most recent radiologic studies revealed no acute fracture dislocation but with old multiple vertebral compression fractures and multiple intact vertebroplasties. The PMHX: All Active Problems Back pain (Acute) Sarcoma of femur (Acute) Risk for falls (Acute) CLL (chronic lymphocytic leukemia) (Acute) 2021-followed by [facility] oncology, has been relatively stable has not required any intervention Pacemaker (Acute 10/10/14) Hypertension (Chronic 11/30/14) GERD (gastroesophageal reflux disease) (Chronic 11/30/14) Complete heart block (Acute 10/07/14) Wears dentures (Acute 11/30/14) MR (mitral regurgitation) (Chronic 10/10/14) MILD ECHO 09/2014 Poor posture (Acute) MDS (myelodysplastic syndrome) (Acute) Hypogammaglobulinemia (Acute) Dementia (Chronic) Renal insufficiency (Chronic) DVT prophylaxis (Acute) Anemia (Chronic) Chronic, followed by oncology-[facility] Pain of left hip joint (Acute) Atherosclerosis of coronary artery without angina pectoris (Acute) Needs assistance while at home (Acute) Closed wedge fracture of lumbar vertebra (Acute) Heartburn (Acute) General unsteadiness (Acute) Lack of energy (Acute) Backache (Acute) Pain in thoracic spine (Acute) Kidney stone (Chronic) Hydronephrosis (Acute) Drug induced constipation (Acute) Diaphragmatic hernia (Acute) Bilateral pleural effusion (Acute) Abdominal aortic aneurysm without rupture (Acute) Heart disease (Acute) Chronic congestive heart failure (Acute) Myocardial infarction (Chronic) Depressive disorder (Chronic) Bilateral hearing loss (Acute) Cardiac pacemaker in situ (Acute) Congestive heart failure (Chronic) COPD (chronic obstructive pulmonary disease) (Chronic) Dyspnea on exertion (Acute 10/06/14) a.? cannot walk more than 20 or 25 feet; he feels like he is going to pass outComplete heart block (Acute 10/06/14) a.? vitals are stable b.? junctional escape at about 63 bpmLeukocytosis (Acute 10/06/14) a.? predominance of lymphocytes, question CLLBenign prostatic hypertrophy (Chronic) Erectile dysfunction (Chronic) Hyperlipidemia (Chronic) GERD (gastroesophageal reflux disease) (Chronic) Hypertension (Chronic) Benign hematuria (Chronic) History of shingles (Chronic) 01/2013 H/O surgical procedure (Chronic) a.? bilateral inguinal herna repairsHistory of tobacco use (Chronic) smoked for 50 years, quit in 1997 Medical History? Aortic aneurysm Claustrophobia (11/30/14) CLL (chronic lymphocytic leukemia) (10/06/14) B-cellPneumonia Shingles (11/30/14) Surgical History? H/O kyphoplasty L-4, T-10, L-1 History of thoracentesis (~08/30/19) 1250mL of pleural fluid removed Pacemaker (12/07/14) cardiac- in situ Repair of inguinal hernia B/L Social History/Home Situation: Lives alone in an apartment her in town. Independent with short distance ambualtion using his FWW. Uses motorized wheelchair for community ambulation. Daughter Kate lives close by and has been a good help when needed. Equipment Owned/DME: FWW, SPC, motorized wheelchair Subjective: Feels a lot better than when he came in at the ED. Still feels some cramping and catching sensation in his back with certain trunk movements but pain level is much more tolerable. Agreeable to doing outpatient PT for back rehabilitation. Objective: General Observation: Supine in bed. In NAD. Mental Status: Alert and oriented as to person, place, time, and purpose. Able to pay attention, focus, and respond appropriately. Pain: 5-6/10 in mid an low back area Vital Signs: WNL as closely monutored by nursing staff ROM: Trunk AROM flexion, extension, rotation and lateral flexion decreased by about 50% due to pain level. Right Lower Extremity: Straight leg raise limited to about 45 degrees before onset of pain. Able to bring knee to his belly to about 100 degrees of hip flexion and knee flexion before pain level increases. ANkle DF to neutral only. Left Lower Extremity: Straight leg raise limited to about 45 degrees before onset of pain. Able to bring knee to his belly to about 100 degrees of hip flexion and knee flexion before pain level increases. Strength: Trunk musculature 3-/5. Right Lower Extremity: Hip flexors 3-/5. Hip abductors 3-/5. Knee flexors 3-/5. Knee extensors 4-/5. Ankle dorsiflexors 3--/5. Ankle plantarflexors 4-/5. Left Lower Extremity: Hip flexors 3-/5. Hip abductors 3-/5. Knee flexors 3-/5. Knee extensors 4-/5. Ankle dorsiflexors 3--/5. Ankle plantarflexors 4-/5. Sensation: Intact as to pain and light pressure in B LE. No lateralization of pain with SLR. No numbness reported. Bed Mobility/Transfers: Rolling stand by assist Supine to sit stand by assist with cues for safe and pain-free technique Sit to stand stand by assist, needed support of B hands for more controlled and painless technique Stand to sit stand by assist, needed support of B hands for more controlled and painless technique Bed to reclining chair stand by assist, needed support of B hands for more controlled and painless technique Gait: Instructed patient with level surface ambulation of 75 feet requiring stand by assist. Lexy decreased. Step height dec Irased. Step length decreased. Steps guarded, step to-gait pattern. Ambler much better in the low back after activity but reported feeling a bit tired. Balance: Static Sitting: Good Dynamic Sitting: Fair Static Standing: Fair Dynamic Standing: Fair Special Tests: Mobility Limitations Standardized Measure [facility] AM-PAC 6 clicks Basic Mobility Inpatient Short Form: Raw Score: 20 CMS Score: 36% deficit Back exercises initiated prior to mobility assessment: 1. Posterior pelvic tilts with abdominal bracing x 5 2. Unilaterl knee to chest with abdominal bracing x 5 3. Bilateral knee to chest with abdominal bracing x 5 4. Clam shell exercises in R and L sidelying x 10 5. Pelvic rock x 10 Informed Consent/Education: Patient was instructed in purpose of PT consult and plan of care. Agreeable to proceed with established PT POC to achieve personal goals. Assessment: Limited trunk motions. Trunk paraspinals tender along the mid back and the low back with the R being more tender than the L. B LE and trunk muscle sterngth decreased due pain level. Responded well to back exercises finally has been able to get out of bed to walk. Patient presents with clinical signs and symptoms consistent with current/admitting diagnoses that have resulted to mobility limitations, gait instability, generalized weakness, and overall ADL decline as demonstrated by the following impairment level findings: 1. Decreased strength to B LE and trunk muscle groups 2. Impaired sitting/standing balance 3. Impaired activity tolerance 4. Limitation of joint range of motion in trunk and B LE joints Impairments are contributing to the following functional limitations: 1. Difficulty with ambulation without assistive device 2. Increased completion time for mobility ADL performance 3. Increased risk for falls Patient is assessed as a 69531 moderate complexity based on the following: History: 87-year-old male with past medical history as indicated above Examination: Demonstrable impairment in strength, balance, and mobility level with underlying impairments and functional limitations as exhibited above as well as deficit score of 36% utilizing the [facility] Mobility Inpatient Short Form Presentation: Evolving Decision Makin moderate complexity Goals: N/A. PT evaluation and one treatment session only for mobility retraining and HEP instruction. Plan of Care/Treatment Plan: N/A. PT evaluation and one treatment session only for mobility retraining and HEP instruction. DISCHARGE RECOMMENDATIONS: [] Home with no services [] [] Home with services [specify] [X] Home with outpatient PT. Home when medically cleared by hospitalist. Will benefit from outpatient PT services for continued back rehabilitation to maximize mobility level in the community. [] SNF for continued rehabilitation [] [] [facility] [] [] SNF versus LTC based on ability to participate and progress [] TREATMENT CODE/TIME: 17366 x 20 minutes, 23421 x 18 minutes beginning at 11:20 AM. Thank you for the opportunity to participate in the care of this patient. Sharmaine Avina PT, DPT, CLT [facility] [place], [place]
[2022-04-29 11:22] LABS: Bilirubin Negative (Negative); Blood Negative (Negative); Clarity Clear (Clear); Glucose Negative (Negative); Ketones Negative (Negative); Leukocyte Esterase Negative (Negative); Nitrite Negative (Negative); Specific Gravity 1.025 (1.005-1.025); Urobilinogen 0.2 EU/dL (Up TO 0.2)
--- NOTE | 2022-04-29 11:26 | PDOC.CMIN ---
- If Service Date Differs Date of service: 04/29/22 Time of Service: 11:26 Care Management Initial Assess REASON FOR HOSPITALIZATION:: Low Back Pain PREVIOUS FUNCTIONAL STATUS/SOCIAL/FAMILY SUPPORTS:: Micky is and lives alone at the [facility] in [facility]. He is independent with his ADL's and if he ever needs anything he calls his daughter Kate Molina who lives up the street. He uses a walker to ambulate and travels often to his daughter's house using his motorized scooter. He uses [facility] to transport to his doctor's appointments, and Kate transports him everywhere else. They have a good relationship and are very close.
--- NOTE | 2022-04-29 12:59 | DSE_ITS ---
Date of service: 04/29/22 Time of Service: 12:59 DS: Diagnosis Discharge Diagnosis (1) Back pain: Start date: 04/29/22 Start time: 13:00 Status: Acute Asessment and Plan: Back pain -acute on chronic - is improved, at baseline, discharged to home, agrees to out patient PT Discharge Plan Disposition Patient Disposition: HOME Condition: Stable Discharge Details Reason For Visit: Low Back Pain Admit Date/Time: 04/29/22 06:15 Admit Provider: Nicholas Angel Attending Provider: Nicholas Angel Primary Care Provider: Manohar Yadav Hospital Course Hospital Course: 87 year old? M patient presented to the [facility] emergency department this am with the chief complaint of back pain,?described as moderate,?Quality is described as aching,?and is localized to the back.?Patient reports no radiation.?Patient started experiencing this acute on chronic pain about 5 days ago. He reports it has been intermittent.?No relieving factors improve symptoms ,?No exacerbating factors reported .?Patient notes no other symptoms. He was given baclofen, admitted for observataion to [facility]. He was assessed by PT, able to ambulate well in the hallway independent with walker. He was much improved after baclofen. He is to follow up with his PCP for pain managment. I did sesnd him home with a prescription for baclofen. He is stable, improved and discharged to home with his step daughter. Harriet tell the [facility] staff he has no one to take care of him and he is unable to walk. We did do a walking trial and he did great. His step-daughter reports he cooks for himself, bathes himself, goes out on a scooter most days, is very active and she visits him at least daily. Her also visits. They live close to him. We recommended he speak with case managment regarding community resources, such as meals on wheels, choices for care, etc. Discussed with Dr Simpson Time spent on direct patient care and documentation 30 min. Home Meds and New Rx's Prescriptions: New baclofen 5 mg tablet 5 mg PO DAILY Qty: 7 0RF Continued famotidine 20 mg tablet 20 mg PO BID acetaminophen [Tylenol 8 Hour] 650 mg tablet extended release 1,300 mg PO Q8H PRN (Reason: fever or pain) Qty: 1 0RF Rx Instructions: OTC Eliquis 5 MG tablet 5 mg PO BID Qty: 180 ipratropium-albuterol 0.5 mg-3 mg(2.5 mg base)/3 mL solution for nebulization 3 ml INHALATION DAILY Label Comments: INHALE THE CONTENTS OF ONE VIAL VIA NEBULIZER EVERY 4 TO 6 HOURS NEEDED furosemide 20 mg tablet 20 mg DAILY Label Comments: TAKE ONE TABLET BY MOUTH EVERY DAY albuterol sulfate 90 mcg/actuation HFA aerosol inhaler 1 puff INHALATION PRN PRN Label Comments: INHALE TWO PUFFS BY MOUTH EVERY 4 HOURS Discharge Instructions Instructions: Lidocaine Patch (On the skin), Back Pain (GEN), Physical Activity for Older Adults (GEN) Additional Instructions: Continue taking tylenol as needed (don't exceed 3000 mg/24h). Use a heating pad. Try Lidocaine patches over the counter Please follow up with PCP and out patient PT as agreed. Follow up with community resources provided by case management regarding alterna housing. Stand Alone Forms: Nursing Discharge Form Referrals: Gregory Martines MD [ [facility] STAFF PHYSICIAN] - 05/01/22 3:20 pm Umair Dumont PT [PHYSICAL THERAPIST] - 05/01/22 3:15 pm Activity:: Activity as Tolerated Equipment/Supplies:: Walker Diet:: Low Sodium Discharge Orders Discharge Orders: Discharge Order (Routine); Ordered 04/29/22 Ordered By: Lottie Lew Discharge Data Discharge Date/Time-TO BE ENTERED AT DEPARTURE: 04/29/22 15:52 DS: Summary Time Spent with Patient providing and/or coordinating discharge services: Less than 30 minutes Status at Discharge Functional status at discharge: uses cane/walker Overall status at discharge: patient is back to baseline Mental Status: mental status grossly normal Speech and Movement: speech and movement normal Mood: congruent mood Affect: normal affect Exam Psych Mental Status: mental status grossly normal Speech and Movement: speech and movement normal Mood: congruent mood Affect: normal affect DS: Data Vitals/I&O Vitals and I&O: Vital Signs Temperature 36.1 C L 04/29/22 08:44 Temperature Source Tympanic 04/29/22 08:44 Pulse 87 04/29/22 11:54 Pulse Rhythm Regular 04/29/22 07:10 Respiratory Rate 24 04/29/22 08:44 Respiratory Effort 07/11/22 07:10 Respiratory Depth Normal 04/29/22 07:10 Respiratory Pattern Normal 04/29/22 07:10 Blood Pressure 112/68 04/29/22 08:44 Blood Pressure Position Supine 04/29/22 04:49 Pulse Oximetry 98 04/29/22 11:54 Oxygen Delivery Method Room Air 04/29/22 11:54 Oxygen Flow Rate 0 04/29/22 11:54 Pain Level 0 04/29/22 07:10 Comment 04/29/22 11:54 Intake & Output 04/28/22 04/29/22 04/29/22 23:59 11:59 23:59 Intake Total 240 / 480 240 / 480 Output Total 175 / 175 Balance 65 / 305 240 / 305 Weight 81.9 kg Intake: Oral 240 / 480 240 / 480 Output: Urine 175 / 175 Other: Urine Color Yellow Urine Appearance Clear Voiding Methods Urinal Data Completed and Pending Labs on day of discharge: Labs from last 24 hours 04/29/22 04/29/22 04/29/22 11:05 06:40 06:39 WBC RBC Hgb Hct MCV MCH MCHC RDW Plt Count MPV Immature Gran % Neutrophils % Lymphocytes % Monocytes % Eosinophils % Basophils % Other Cells % Nucleated RBC % Absolute Neutrophils Absolute Lymphocytes Absolute Monocytes Absolute Eosinophils Absolute Basophils RBC Morphology PT INR APTT Sodium Potassium Chloride Carbon Dioxide Anion Gap BUN Creatinine Estimated GFR/1.73 m2 Glucose Calcium Magnesium Total Bilirubin AST ALT Alkaline Phosphatase Total Protein Albumin Urine Color Yellow Urine Clarity Clear Urine pH 6.0 Ur Specific Seminary 1.025 Urine Protein Negative Urine Ketones Negative Urine Blood Negative Urine Nitrite Negative Urine Bilirubin Negative Urine Urobilinogen 0.2 Ur Leukocyte Esterase Negative Urine Glucose Negative COVID-19 Source Nasal/Nares Pending SARS-CoV-2 (PCR) Negative Pending 04/29/22 04/29/22 04/29/22 05:00 05:00 05:00 WBC 47.46 H* RBC 3.37 L Hgb 10.7 L Hct 34.4 L MCV 102 H MCH 31.8 MCHC 31.1 L RDW 14.8 H Plt Count 141 MPV 10.4 Immature Gran % 0.0 Neutrophils % 11.0 Lymphocytes % 85.0 Monocytes % 1.0 Eosinophils % 1.0 Basophils % 0.0 Other Cells % 2 Nucleated RBC % 0.0 Absolute Neutrophils 5.22 Absolute Lymphocytes 40.34 H Absolute Monocytes 0.47 Absolute Eosinophils 0.47 Absolute Basophils 0.00 RBC Morphology Normal PT 10.7 INR 1.1 APTT 23.8 Sodium 142 Potassium 4.4 Chloride 105 Carbon Dioxide 29.6 Anion Gap 7.4 BUN 33 H Creatinine 1.8 H Estimated GFR/1.73 m2 35.95 Glucose 112 H Calcium 8.6 Magnesium 2.4 Total Bilirubin 0.4 AST 11 L ALT 12 L Alkaline Phosphatase 75 Total Protein 6.2 L Albumin 4.0 Urine Color Urine Clarity Urine pH Ur Specific Seminary Urine Protein Urine Ketones Urine Blood Urine Nitrite Urine Bilirubin Urine Urobilinogen Ur Leukocyte Esterase Urine Glucose COVID-19 Source SARS-CoV-2 (PCR) PFSH All Active Problems Back pain (Acute) Sarcoma of femur (Acute) Risk for falls (Acute) CLL (chronic lymphocytic leukemia) (Acute) 2021-followed by [facility] oncology, has been relatively stable has not required any intervention Pacemaker (Acute 10/10/14) Hypertension (Chronic 11/30/14) GERD (gastroesophageal reflux disease) (Chronic 11/30/14) Complete heart block (Acute 10/07/14) Wears dentures (Acute 11/30/14) MR (mitral regurgitation) (Chronic 10/10/14) MILD ECHO 09/2014 Poor posture (Acute) MDS (myelodysplastic syndrome) (Acute) Hypogammaglobulinemia (Acute) Dementia (Chronic) Renal insufficiency (Chronic) DVT prophylaxis (Acute) Anemia (Chronic) Chronic, followed by oncology-[facility] Pain of left hip joint (Acute) Atherosclerosis of coronary artery without angina pectoris (Acute) Needs assistance while at home (Acute) Closed wedge fracture of lumbar vertebra (Acute) Heartburn (Acute) General unsteadiness (Acute) Lack of energy (Acute) Backache (Acute) Pain in thoracic spine (Acute) Kidney stone (Chronic) Hydronephrosis (Acute) Drug induced constipation (Acute) Diaphragmatic hernia (Acute) Bilateral pleural effusion (Acute) Abdominal aortic aneurysm without rupture (Acute) Heart disease (Acute) Chronic congestive heart failure (Acute) Myocardial infarction (Chronic) Depressive disorder (Chronic) Bilateral hearing loss (Acute) Cardiac pacemaker in situ (Acute) Congestive heart failure (Chronic) COPD (chronic obstructive pulmonary disease) (Chronic) Dyspnea on exertion (Acute 10/06/14) a. cannot walk more than 20 or 25 feet; he feels like he is going to pass out Complete heart block (Acute 10/06/14) a. vitals are stable b. junctional escape at about 63 bpm Leukocytosis (Acute 10/06/14) a. predominance of lymphocytes, question CLL Benign prostatic hypertrophy (Chronic) Erectile dysfunction (Chronic) Hyperlipidemia (Chronic) GERD (gastroesophageal reflux disease) (Chronic) Hypertension (Chronic) Benign hematuria (Chronic) History of shingles (Chronic) 01/2013 H/O surgical procedure (Chronic) a. bilateral inguinal herna repairs History of tobacco use (Chronic) smoked for 50 years, quit in 1997 Medical History Aortic aneurysm Claustrophobia (11/30/14) CLL (chronic lymphocytic leukemia) (10/06/14) B-cell Pneumonia Shingles (11/30/14) Surgical History H/O kyphoplasty L-4, T-10, L-1 History of thoracentesis (~08/30/19) 1250mL of pleural fluid removed Pacemaker (12/07/14) cardiac- in situ Repair of inguinal hernia B/L Family History Mother , 90 Stroke Father , 75 Accidental HORSE FELL ON HIM Heart disease Son , 50 Alcohol use disorder Son , 60 Alcohol use disorder Social History Smoking/Tobacco Use Status: Former Tobacco Use Quit Date: 10/20/97 Second Hand Exposure: Yes Smoking risk assessment performed?: Yes Alcohol Intake: former Drug use: Never Substance use type: does not use Caregiver/Support person: No Household members: none Housing: apartment Do you need help understanding health information?: Always Pets and animals: No Sexually active: No Do you think of yourself as: straight/heterosexual Current gender identity: male What is your relationship status?: How often do you talk on the phone with friends or family?: three or more times per week How often do you get together with friends or relatives?: three or more times per week How often do you attend catholic or sabianist services?: decline to answer Do you belong to any clubs or organized social groups?: no Panel score (0-1 are the most socially isolated patients): 1 What type of physical activity do you participate in: none Seatbelt use: always Helmet use: No Drive intox or ride w/intox [id number] tank driver: No Do you feel safe at home: Yes Do you feel safe in your relationship?: Yes
== END 2022-04-29 15:52 | disposition home or self-care (01) ==
LOC: ER 06:45 → MS 07:22
PROVIDERS: Admitting Provider General Practice; Emergency Provider Emergency Medicine; PCP Nurse Practitioner Family; Visit Provider General Practice
DX: M54.50 Low back pain, unspecified (principal); M54.6 Pain in thoracic spine; I13.0 Hypertensive heart and chronic kidney disease with heart failure and stage 1 through stage 4 chronic kidney disease, or unspecified chronic kidney disease; C91.10 Chronic lymphocytic leukemia of B-cell type not having achieved remission; K21.9 Gastro-esophageal reflux disease without esophagitis; Z95.0 Presence of cardiac pacemaker; I44.2 Atrioventricular block, complete; I34.0 Nonrheumatic mitral (valve) insufficiency; D46.9 Myelodysplastic syndrome, unspecified; I50.9 Heart failure, unspecified; Z20.822 Contact with and (suspected) exposure to COVID-19; F03.90 Unspecified dementia, unspecified severity, without behavioral disturbance, psychotic disturbance, mood disturbance, and anxiety; G89.29 Other chronic pain; N18.9 Chronic kidney disease, unspecified; Z79.01 Long term (current) use of anticoagulants; I25.10 Atherosclerotic heart disease of native coronary artery without angina pectoris; N20.0 Calculus of kidney; I71.4 Abdominal aortic aneurysm, without rupture; F32.9 Major depressive disorder, single episode, unspecified; J44.9 Chronic obstructive pulmonary disease, unspecified; N40.0 Benign prostatic hyperplasia without lower urinary tract symptoms; E78.5 Hyperlipidemia, unspecified; Z87.891 Personal history of nicotine dependence; S22.000D Wedge compression fracture of unspecified thoracic vertebra, subsequent encounter for fracture with routine healing; X58.XXXD Exposure to other specified factors, subsequent encounter; S32.009D Unspecified fracture of unspecified lumbar vertebra, subsequent encounter for fracture with routine healing
CPT/HCPCS: 80053; 87635; 96374; 97162; 97530; 99285; 81003; 83735; 85025; 85610; 85730; 94640; 99217; 99239; G0378; J2270; J7620

== ENCOUNTER 2022-05-04 06:53 | Emergency (ER) | payer MEDICARE, MEDICAID, SELFPAY ==
[2022-05-04 06:55] VITALS: BP 132/60; PULSE 96; RESP 16; TEMP 36.9; O2SAT 92
[2022-05-04] MEDS: Lidocaine 5% Patch 1 PATCH TP (07:09)
--- NOTE | 2022-05-04 07:11 | W.ED.GENAD ---
Discharge Plan Disposition Patient Disposition: STILL A PATIENT Condition: Good Discharge Details Chief Complaint: Nk/Back Pain Clinical Impression: Chronic back pain Primary Care Provider: Manohar Yadav ED Provider: Tutu Beltran Home Meds and New Rx's Prescriptions: No Action famotidine 20 mg tablet 20 mg PO BID acetaminophen [Tylenol 8 Hour] 650 mg tablet extended release 1,300 mg PO Q8H PRN (Reason: fever or pain) Qty: 1 0RF Rx Instructions: OTC tramadol 50 mg tablet 50 mg PO BID MDD 2 tabs PRN (Reason: pain) Qty: 56 0RF Eliquis 5 MG tablet 5 mg PO BID Qty: 180 ipratropium-albuterol 0.5 mg-3 mg(2.5 mg base)/3 mL solution for nebulization 3 ml INHALATION DAILY Label Comments: INHALE THE CONTENTS OF ONE VIAL VIA NEBULIZER EVERY 4 TO 6 HOURS NEEDED furosemide 20 mg tablet 20 mg DAILY Label Comments: TAKE ONE TABLET BY MOUTH EVERY DAY albuterol sulfate 90 mcg/actuation HFA aerosol inhaler 1 puff INHALATION PRN PRN Label Comments: INHALE TWO PUFFS BY MOUTH EVERY 4 HOURS Medical Decision Making 87-year-old male with a past medical history of chronic back pain, pacemaker defibrillator, AAA, hypertension, high cholesterol, CLL, who presents today via EMS for back pain. Patient lives alone at home. He was recently admitted for back pain and subsequently discharged about 5 days ago. He states that he has had back pain ever since his MRI at [facility] on 04/24/2022. This included the time period where he was admitted and then subsequently discharged 3 days ago. There was initial concern that he was unable to complete his ADLs at home, but his stepdaughter who takes care of him according to the discharge summary. Today he states that he has continued back pain, but is not able to specify why he is here or what he wants help with. He states that he was taking tramadol but his stepdaughter cut the dose in half because it was making him confused. He denies any numbness, tingling or focal weakness. He states that he is able to get around on his own with his walker. He states that he does not know what his goals are today, but he does state clearly that he is DNR/DNI, he does not want any type of surgery on his hip or back, and he does not want to go to an assisted living facility. Patient has no other complaints at this time. He denies any recent falls or trauma otherwise. No other modifying factors Exam demonstrates a slightly depressed appearing male, he shows no focal neurologic deficits in his lower extremities. Strength is normal, no saddle anesthesia, no rectal tone deficits. He is able to move well. No midline back pain. Review of his MRI from [facility] from a few days ago demonstrates a notable amount of chronic disease for the spine, discs, as well as some more notable disease of the left femur. Specifically, the patient does state that his pain is slightly more on the right, but there is no focality on palpation. The patient is very unsure of what his goals are today. He makes comments like I just want to be done, I just want to go to sleep and be done with it all. But also states very clearly that he does not want to be in a facility, he does not want to be admitted, and he just wants to be home. He seems very frustrated with his current state of life. He has no focal neurologic deficits that would suggest needing repeat imaging at this time. Symptoms appear inconsistent with a ruptured AAA, however even if that was present the patient made it very clear on my questioning that he would not want any surgery on his abdomen or surgery in general orthopedically. I did try reaching out to his stepdaughter but she is unavailable. We will apply a Lidoderm patch, and reach out to case management when they arrive for further help with home decision making for the patient. Otherwise I see no evidence of an acute emergent process currently present. Also of note he had a physical therapy session just yesterday where he did very well according to the note showed no signs of significant disability. HPI General Date/Time Provider Initiated Documentation: 05/04/22 07:06. HPI Narrative: 87-year-old male with a past medical history of chronic back pain, pacemaker defibrillator, AAA, hypertension, high cholesterol, CLL, who presents today via EMS for back pain. Patient lives alone at home. He was recently admitted for back pain and subsequently discharged about 5 days ago. He states that he has had back pain ever since his MRI at [facility] on 04/24/2022. There was initial concern that he was unable to complete his ADLs at home, but his stepdaughter who takes care of him according to the discharge summary. Today he states that he has continued back pain, but is not able to specify why he is here or what he wants help with. He states that he was taking tramadol but his stepdaughter cut the dose in half because it was making him confused. He denies any numbness, tingling or focal weakness. He states that he is able to get around on his own with his walker. He states that he does not know what his goals are today, but he does state clearly that he is DNR/DNI, he does not want any type of surgery on his hip or back, and he does not want to go to an assisted living facility. Patient has no other complaints at this time. He denies any recent falls or trauma otherwise. No other modifying factors Related Data Home Medications Medication Instructions Recorded Confirmed apixaban 5 mg tablet (Eliquis) 5 mg PO BID #180 tabs 03/01/15 05/04/22 albuterol sulfate 90 mcg/actuation 1 puff inhalation PRN PRN 01/05/22 05/04/22 aerosol inhaler furosemide 20 mg tablet 20 mg DAILY 01/05/22 05/04/22 ipratropium 0.5 mg-albuterol 3 mg 3 ml inhalation DAILY 01/05/22 05/04/22 (2.5 mg base)/3 mL nebulization soln famotidine 20 mg tablet 20 mg PO BID 03/13/22 05/04/22 acetaminophen 650 mg 1,300 mg PO Q8H PRN fever or pain 03/26/22 05/04/22 tablet,extended release (Tylenol 8 #1 tab Hour) tramadol 50 mg tablet 50 mg PO BID PRN pain #56 tabs 05/01/22 05/04/22 Previous Rx's Medication Instructions Recorded acetaminophen 650 mg 1,300 mg PO Q8H PRN fever or pain 03/26/22 tablet,extended release (Tylenol 8 #1 tab Hour) tramadol 50 mg tablet 50 mg PO BID PRN pain #56 tabs 05/01/22 Allergies Allergy/AdvReac Type Severity Reaction Status Date / Time No Known Allergies Allergy Unverified 05/04/22 07:00 General Stated Complaint: Nk/Back Pain RASHAAD: 4 Review of Systems All systems reviewed & are unremarkable except as noted in HPI and below PFSH All Active Problems Chronic back pain (Acute) Failure to thrive in adult (Acute) Low back pain (Acute) Back pain (Acute) Sarcoma of femur (Acute) Risk for falls (Acute) CLL (chronic lymphocytic leukemia) (Acute) 2021-followed by [facility] oncology, has been relatively stable has not required any intervention Pacemaker (Acute 10/10/14) Hypertension (Chronic 11/30/14) GERD (gastroesophageal reflux disease) (Chronic 11/30/14) Complete heart block (Acute 10/07/14) Wears dentures (Acute 11/30/14) MR (mitral regurgitation) (Chronic 10/10/14) MILD ECHO 09/2014 Poor posture (Acute) MDS (myelodysplastic syndrome) (Acute) Hypogammaglobulinemia (Acute) Dementia (Chronic) Renal insufficiency (Chronic) DVT prophylaxis (Acute) Anemia (Chronic) Chronic, followed by oncology-[facility] Pain of left hip joint (Acute) Atherosclerosis of coronary artery without angina pectoris (Acute) Needs assistance while at home (Acute) Closed wedge fracture of lumbar vertebra (Acute) Heartburn (Acute) General unsteadiness (Acute) Lack of energy (Acute) Backache (Acute) Pain in thoracic spine (Acute) Kidney stone (Chronic) Hydronephrosis (Acute) Drug induced constipation (Acute) Diaphragmatic hernia (Acute) Bilateral pleural effusion (Acute) Abdominal aortic aneurysm without rupture (Acute) Heart disease (Acute) Chronic congestive heart failure (Acute) Myocardial infarction (Chronic) Depressive disorder (Chronic) Bilateral hearing loss (Acute) Cardiac pacemaker in situ (Acute) Congestive heart failure (Chronic) COPD (chronic obstructive pulmonary disease) (Chronic) Dyspnea on exertion (Acute 10/06/14) a. cannot walk more than 20 or 25 feet; he feels like he is going to pass out Complete heart block (Acute 10/06/14) a. vitals are stable b. junctional escape at about 63 bpm Leukocytosis (Acute 10/06/14) a. predominance of lymphocytes, question CLL Benign prostatic hypertrophy (Chronic) Erectile dysfunction (Chronic) Hyperlipidemia (Chronic) GERD (gastroesophageal reflux disease) (Chronic) Hypertension (Chronic) Benign hematuria (Chronic) History of shingles (Chronic) 01/2013 H/O surgical procedure (Chronic) a. bilateral inguinal herna repairs History of tobacco use (Chronic) smoked for 50 years, quit in 1997 Medical History Aortic aneurysm Claustrophobia (11/30/14) CLL (chronic lymphocytic leukemia) (10/06/14) B-cell Pneumonia Shingles (11/30/14) Surgical History H/O kyphoplasty L-4, T-10, L-1 History of thoracentesis (~08/30/19) 1250mL of pleural fluid removed Pacemaker (12/07/14) cardiac- in situ Repair of inguinal hernia B/L Family History Mother , 90 Stroke Father , 75 Accidental HORSE FELL ON HIM Heart disease Son , 50 Alcohol use disorder Son , 60 Alcohol use disorder Social History Smoking/Tobacco Use Status: Former Tobacco Use Quit Date: 10/20/97 Second Hand Exposure: Yes Smoking risk assessment performed?: Yes Alcohol Intake: former Drug use: Never Substance use type: does not use Caregiver/Support person: No Household members: none Housing: apartment Do you need help understanding health information?: Always Pets and animals: No Sexually active: No Do you think of yourself as: straight/heterosexual Current gender identity: male What is your relationship status?: How often do you talk on the phone with friends or family?: three or more times per week How often do you get together with friends or relatives?: three or more times per week How often do you attend pentecostal or jew services?: decline to answer Do you belong to any clubs or organized social groups?: no Panel score (0-1 are the most socially isolated patients): 1 What type of physical activity do you participate in: none Seatbelt use: always Helmet use: No Drive intox or ride w/intox 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 3.ENT: Atraumatic external nose and ears. Moist MM. Neck: Symmetric, trachea midline, No thyromegaly. 4.CVS: +S1/S2, No murmurs or gallops. Peripheral pulses 2+ and equal in all extremities. Brisk capillary refill in all extremities. 5.RESP: Unlabored respiratory effort. Clear to auscultation bilaterally. No wheezes rales or rhonchi 6.GI: Soft, Nontender/Nondistended, No hepatosplenomegaly. No guarding or rebound. 7.MSK: Normocephalic/Atraumatic, Extremities w/o deformity or ttp No cyanosis or clubbing, Normal movement of all extremities No midline tenderness to palpation over the CTLS spine. Normal ROM in flexion, extension, side bend, and rotation. Patient has +5 out of 5 strength in the lower extremities in dorsiflexion and plantarflexion, knee flexion and extension, hip flexion and extension. Normal strength for dorsiflexion and plantar flexion of the great toe bilaterally. There is +2 over 2 dorsalis pedis pulses bilaterally. There is normal sensation to the skin with light touch at the foot, knee, and hip. Normal saddle sensation. Good sensation over the deep sural nerve area bilaterally. Rectal exam deferred. Reflexes are +2 over 4 in the patellar reflex bilaterally. 8.Skin: Warm, Dry. No rashes or lesions. 9.Neuro: linen clerk II-XII grossly intact. Sensation grossly intact, no focal neurologic deficits. 10.Psych: (AAO) x3. Appropriate mood and affect Course Vital Signs Vital signs: Vital Signs Temperature 36.9 C 05/04/22 06:55 Pulse 96 H 05/04/22 06:55 Respiratory Rate 16 05/04/22 06:55 Blood Pressure 132/60 05/04/22 06:55 Pulse Oximetry 92 05/04/22 06:55 Temperature 36.9 C 05/04/22 06:55 Temperature Source Temporal Artery Scan 05/04/22 06:55 Pulse 96 H 05/04/22 06:55 Respiratory Rate 16 05/04/22 06:55 Respiratory Effort 05/04/22 07:01 Blood Pressure 132/60 05/04/22 06:55 Blood Pressure Position Supine 05/04/22 06:55 Pulse Oximetry 92 05/04/22 06:55 Oxygen Delivery Method Room Air 05/04/22 06:55 Oxygen Flow Rate 0 05/04/22 06:55 Pain Level 10 05/04/22 06:55
--- NOTE | 2022-05-04 08:15 | DI.CT_ITS ---
Exam(s) CT HEAD WO EXAM: CT HEAD WO CLINICAL HISTORY: confusion, r/o acute disease. TECHNIQUE: Imaging Protocol: Axial computed tomography images with coronal and sagittal reformatted images were created and reviewed COMPARISON: CT CT HEAD WO from 01/05/2022 FINDINGS: There are no skull fractures nor fluid in the visualized paranasal sinuses. There is no evidence of intracranial hemorrhage, mass effect, or shift of midline structures. There are no extra-axial fluid collections. The ventricles are not enlarged or shifted and there is no blo od within the ventricular system nor within the basal cisterns. Small chronic infarct left cerebellar hemisphere noted. There is some moderate periventricular white matter hypodensity consistent with chronic small vessel disease. No acute territorial infarction. IMPRESSION: No acute intracranial findings on this noninfused CT scan of the brain. RADIATION DOSE DELIVERED: 816.56mGy.cm Total DLP DATA REPOSITORY: All CT scans at this facility are submitted to the National Radiology Data Registry (NRDR) Dose Index Registry (DIR) with the [employer] (ACR). RADIATION OPTIMIZATION: All CT scans at this facility use at least one of these dose optimization te chniques: automated exposure control; mA and/or kV adjustment per patient size (includes targeted exa ms where dose is matched to clinical indication); or iterative reconstruction.
--- NOTE | 2022-05-04 08:24 | W.EDPROG ---
Date of service: 05/04/22 Time of Service: 08:00 Medical Decision Making 0800 -- Please see Dr. Beltran's note for initial presentation, exam and plan. Case endorsed to follow-up with care management and stepdaughter for disposition. Spoke with michael Love over the phone -she states patient is normally very independent at home and very sharp. She states he has been confused over the past 2 days which she thinks is due to tramadol that he has been taking for his back pain since . His last dose of Tylenol was 530 this morning. She states that he was more clear this morning than he was yesterday. She is concerned about him going home due to his confusion but discussed that he has declined admission or assisted living and he would prefer to go home. Due to this reported confusion, will obtain screening labs, CT head, urinalysis. We will have care management discussed with stepdaughter and patient whether home health may be appropriate. 1230 --discussed with care management and he does not qualify for home health as he is not homebound. Labs and imaging reviewed. White blood cell count 77. He does have a history of CLL but this is increased compared to his baseline. Discussed with his stepdaughter Kate and patient has opted to not have treatment for his CLL. Discussed that he should have this level rechecked if desired. His creatinine is 2.1, up from his recent baseline of 1.8, this may be multifactorial in the setting of diarrhea, dehydration and stress response. Urinalysis negative for infection. CT head negative for acute findings. Patient reassessed and he is still complaining of his back spasms but he has been able to ambulate with his walker which is his baseline. No cauda equina symptoms. No obvious focal deficits. We will give a dose of Valium and prednisone p.o. Patient would prefer to go home. Disposition decision made weighing the risks and benefits of hospitalization versus outpatient treatment, the risk for further decompensation, and the patient's wishes. Prescription for steroids has been sent electronically to his pharmacy. A bottle of 2 tabs of 2 mg Valium given for home. Advised to alternate ice and heat. Advised to follow up with the primary care doctor for re-evaluation. Usual and customary return precautions given prior to discharge. Medical Records Medical records reviewed: Yes I reviewed the patient's medical records. Imaging Data Radiologic Study: Radiologist's impression: CT Head Without Contrast Exam date and time: 05/04/2022 9:15 AM Age: 87 years old Clinical indication: Other: Confusion, R/O acute disease TECHNIQUE: Imaging protocol: Computed tomography of the head without contrast. Radiation optimization: All CT scans at this facility use at least one of these dose optimization techniques: automated exposure control; mA and/or kV adjustment per patient size (includes targeted exams where dose is matched to clinical indication); or iterative reconstruction. COMPARISON: CT HEAD WO 01/05/2022 12:09 AM FINDINGS: Brain: No acute intracranial hemorrhage, midline shift or mass effect. Similar age-related atrophy. Similar periventricular and subcortical white matter hypodensities, nonspecific and likely related to chronic microvascular ischemic changes. 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 No CT findings of an acute large territorial infarct. Cerebral ventricles: Similar ventricular prominence secondary to age-related atrophy. Paranasal sinuses: Minimal mucosal thickening of left maxillary sinus. Mastoid air cells: Visualized mastoid air cells are well aerated. Auditory system: Bilateral external auditory canal densities, likely cerumen. Bones/joints: No acute abnormality. Soft tissues: No acute abnormality. Vasculature: Intracranial arterial calcifications again noted. IMPRESSION: No acute intracranial abnormality. Age-related changes as described. No CT findings of an acute large territorial infarct. Small acute/subacute infarct cannot be excluded in the setting of chronic microvascular ischemic changes. If clinically indicated, consider MRI. Lab Data Lab results reviewed: Yes I reviewed the patient's lab results. Labs: Laboratory Tests Range/Units 05/04/22 05/04/22 05/04/22 09:30 09:30 11:25 WBC (4.4-10.8) 10^3/uL 77.00 H* RBC (4.36-5.78) 10^6/uL 3.59 L Hgb (13.5-17.5) g/dL 11.4 L Hct (40.0-50.0) % 36.7 L MCV (80-95) fL 102 H MCH (27.0-33.0) pg 31.8 MCHC (32.0-36.0) % 31.1 L RDW (11.8-14.1) % 14.9 H Plt Count (130-400) 10^3/uL 189 MPV (8.0-11.0) fL 10.3 Immature Gran % 0.0 Neutrophils % 18.0 Lymphocytes % 80.0 Monocytes % 0.0 Eosinophils % 0.0 Basophils % 0.0 Other Cells % 2 Nucleated RBC % (0.0-0.3) % 0.0 Absolute Neutrophils (1.2-6.7) 10^3/uL 13.86 H Absolute Lymphocytes (1.2-3.4) 10^3/uL 61.60 H Absolute Monocytes (0.1-0.8) 10^3/uL 0.00 L Absolute Eosinophils (0.0-0.7) 10^3/uL 0.00 Absolute Basophils (0.0-0.2) 10^3/uL 0.00 RBC Morphology Normal Sodium (136-145) mmol/L 137 Potassium (3.5-5.1) mmol/L 4.6 Chloride (98-107) mmol/L 101 Carbon Dioxide (21.0-32.0) mmol/L 21.0 Anion Gap (3-11) mmol/L 15.0 H BUN (7-18) mg/dL 57 H Creatinine (0.70-1.30) mg/dL 2.1 H Estimated GFR/1.73 m2 (mL/min/1.73m2) 30.09 Glucose (74-106) mg/dL 122 H Calcium (8.5-10.1) mg/dL 8.8 Total Bilirubin (0.2-1.0) mg/dL 1.0 AST (15-37) U/L 14 L ALT (16-63) U/L 14 L Alkaline Phosphatase (46-116) U/L 75 Total Protein (6.4-8.2) g/dL 7.0 Albumin (3.4-5.0) g/dL 4.3 Urine Color (Yellow) Yellow Urine Clarity (Clear) Clear Urine pH (5-8) 5.5 Ur Specific [place] (1.005-1.025) 1.025 Urine Protein (Negative) mg/dL Trace H Urine Ketones (Negative) mg/dL 15 H Urine Blood (Negative) Negative Urine Nitrite (Negative) Negative Urine Bilirubin (Negative) Small H Urine Urobilinogen (Up TO 0.2) EU/dL 0.2 Ur Leukocyte Esterase (Negative) Negative Urine RBC (0-2) HPF Negative Urine WBC (0-5) HPF Negative Ur Epithelial Cells (Negative) HPF Rare Urine Crystals (Negative) HPF Negative Urine Bacteria (Negative) HPF Negative Urine Casts (Negative) LPF 3-5 Hyaline Urine Mucus (Negative) Trace Ur Culture Indicated? No Urine Glucose (Negative) mg/dL Negative Sign Out Sign Out Data: Sign Out Comment: Pending case management assessment, and disposition home. Last updated by Tutu Beltran DO at 05/04/22 07:58 Discharge Plan Disposition Patient Disposition: HOME Condition: Stable Discharge Details Clinical Impression: Chronic back pain Primary Care Provider: Manohar Yadav ED Provider: Darya Cleveland Home Meds and New Rx's Prescriptions: New prednisone 20 mg tablet See Rx Instructions .ROUTE .COMPLEX Qty: 12 0RF Rx Instructions: Take 3 tabs daily for 2 days, then 2 tabs daily for 2 days, then 1 tab daily for 2 days Continued famotidine 20 mg tablet 20 mg PO BID acetaminophen [Tylenol 8 Hour] 650 mg tablet extended release 1,300 mg PO Q8H PRN (Reason: fever or pain) Qty: 1 0RF Rx Instructions: OTC tramadol 50 mg tablet 50 mg PO BID MDD 2 tabs PRN (Reason: pain) Qty: 56 0RF Eliquis 5 MG tablet 5 mg PO BID Qty: 180 ipratropium-albuterol 0.5 mg-3 mg(2.5 mg base)/3 mL solution for nebulization 3 ml INHALATION DAILY Label Comments: INHALE THE CONTENTS OF ONE VIAL VIA NEBULIZER EVERY 4 TO 6 HOURS NEEDED furosemide 20 mg tablet 20 mg DAILY Label Comments: TAKE ONE TABLET BY MOUTH EVERY DAY albuterol sulfate 90 mcg/actuation HFA aerosol inhaler 1 puff INHALATION PRN PRN Label Comments: INHALE TWO PUFFS BY MOUTH EVERY 4 HOURS Discharge Instructions Instructions: Muscle Spasm (ED), Chronic Back Pain (DC) Additional Instructions: Your lab work today revealed that you may be mildly dehydrated. Your white blood cell count is also much more elevated compared to your baseline. You can discuss with your primary care doctor whether you would like to continue to check your white blood cell count levels or if you decide to pursue treatment for your chronic lymphocytic leukemia or CLL. You are being sent home with a stool sample kit if your diarrhea persists or worsens for further evaluation. A prescription for steroids has been sent electronically to your pharmacy to take as directed for your back pain. You were also sent home with 2 doses of Valium to take for muscle spasm. Take caution when taking Valium as it can cause significant drowsiness. Follow-up with your primary care doctor in 1 week. Return to the emergency department with any worsening or new concerning symptoms such as fever, increased pain, bowel or bladder incontinence or any other concerns. Discharge Data Discharge Physician: Darya Cleveland
[2022-05-04 09:39] LABS: HCT 36.7 % (40.0-50.0); HGB 11.4 g/dL (13.5-17.5); MCH 31.8 pg (27.0-33.0); MCHC 31.1 % (32.0-36.0); MCV 102 fL (80-95); MPV 10.3 fL (8.0-11.0); Platelet Count 189 10^3/uL (130-400); RBC 3.59 10^6/uL (4.36-5.78); RDW 14.9 % (11.8-14.1); RDW-SD 55.2 fL
[2022-05-04 09:52] LABS: Absolute Neutrophil Count 13.86 10^3/uL (1.2-6.7); Other Cells % 2
[2022-05-04 09:53] LABS: ALT 14 U/L (16-63); AST 14 U/L (15-37); Albumin 4.3 g/dL (3.4-5.0); Alkaline Phosphatase 75 U/L (46-116); BUN 57 mg/dL (7-18); CREATININE 2.1 mg/dL (0.70-1.30); Calcium 8.8 mg/dL (8.5-10.1); Chloride 101 mmol/L (98-107); Diff Comment Manual Differential; Estimated GFR 30.09 (mL/min/1.73m2); Glucose 122 mg/dL (74-106); Potassium 4.6 mmol/L (3.5-5.1); RBC Morphology Normal; Sodium 137 mmol/L (136-145)
[2022-05-04] MEDS: Normal Saline 250 ML IV (10:26)
--- NOTE | 2022-05-04 10:26 | DI.VRAD_ITS ---
PROCEDURE INFORMATION: Exam: CT Head Without Contrast Exam date and time: 05/04/2022 9:15 AM Age: 87 years old Clinical indication: Other: Confusion, R/O acute disease TECHNIQUE: Imaging protocol: Computed tomography of the head without contrast. Radiation optimization: All CT scans at this facility use at least one of these dose optimization techniques: automated exposure control; mA and/or kV adjustment per patient size (includes targeted exams where dose is matched to clinical indication); or iterative reconstruction. COMPARISON: CT HEAD WO 01/05/2022 12:09 AM FINDINGS: Brain: No acute intracranial hemorrhage, midline shift or mass effect. Similar age-related atrophy. Similar periventricular and subcortical white matter hypodensities, nonspecific and likely related to chronic microvascular ischemic changes. 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 No CT findings of an acute large territorial infarct. Cerebral ventricles: Similar ventricular prominence secondary to age-related atrophy. Paranasal sinuses: Minimal mucosal thickening of left maxillary sinus. Mastoid air cells: Visualized mastoid air cells are well aerated. Auditory system: Bilateral external auditory canal densities, likely cerumen. Bones/joints: No acute abnormality. Soft tissues: No acute abnormality. Vasculature: Intracranial arterial calcifications again noted. IMPRESSION: No acute intracranial abnormality. Age-related changes as described. No CT findings of an acute large territorial infarct. Small acute/subacute infarct cannot be excluded in the setting of chronic microvascular ischemic changes. If clinically indicated, consider MRI. Dictated and Authenticated by: Alexis Szymanski MD. Ordering:CHARLENE Lackey MD
[2022-05-04 11:35] LABS: Bilirubin Small (Negative); Blood Negative (Negative); Clarity Clear (Clear); Glucose Negative (Negative); Ketones 15 mg/dL (Negative); Leukocyte Esterase Negative (Negative); Nitrite Negative (Negative); Specific Gravity 1.025 (1.005-1.025); Urobilinogen 0.2 EU/dL (Up TO 0.2); pH 5.5 (5-8)
--- NOTE | 2022-05-04 11:36 | NUR.NOTE ---
pt offered lunch. requesting only a drink, Nursing Note:
[2022-05-04 11:41] LABS: Bacteria Negative HPF (Negative); C & S Indicated? No; Casts 3-5 Hyaline LPF (Negative); Crystals Negative HPF (Negative); Epithelial Cells Rare HPF (Negative); Mucus Trace (Negative); RBC Negative HPF (0-2); WBC Negative HPF (0-5)
[2022-05-04] MEDS: diazePAM 2 MG TAB PO (12:34)
[2022-05-04] MEDS: predniSONE 20 MG TAB 60 MG PO (12:34)
[2022-05-04 13:28] VITALS: BP 121/49; PULSE 77; RESP 17; TEMP 36.4; O2SAT 93
--- NOTE | 2022-05-09 18:00 | PT.INDS ---
PT Notes Visit Reasons: Pending Sale To [facility] Inpatient Discharge Summary Date: 05/09/2022 Dates of Service: 05/07/2022 through 05/09/2022 This is a clinical summary of care provided for the duration of dates listed above. No charge was made in the completion of this documentation Referring Doctor:? Steffi Torres MD PT Orders: PT CONSULT: Limited ability Precautions: Fall. Standard. Activity as tolerated. Patient Profile/Admitting Diagnosis:? Micky is an 87-year-old male with past medical history significant for chronic lymphocytic leukemia, chronic back pain, dementia,? and L1-L4 previous vertebroplasties who has had multiple visits to the ED with the most recent one on 04/29/2022.? Bri presented to the ED on 05/05/2022 for acute on chronic back pain, increasing confusion, increasing weakness, and inability to manage at home.? [place] [facility] revealed left femoral neck pathologic fracture.? Patient now with diagnoses of acute on chronic back pain, adult failure to thrive, chronic lymphocytic leukemia, and lytic bone lesions. PMHX: All Active Problems? Back pain (Acute) Sarcoma of femur (Acute) Risk for falls (Acute) CLL (chronic lymphocytic leukemia) (Acute) 2021-followed by [facility] oncology, has been relatively stable has not required any intervention Pacemaker (Acute 10/10/14) Hypertension (Chronic 11/30/14) GERD (gastroesophageal reflux disease) (Chronic 11/30/14) Complete heart block (Acute 10/07/14) Wears dentures (Acute 11/30/14) MR (mitral regurgitation) (Chronic 10/10/14) MILD ECHO 09/2014 Poor posture (Acute) MDS (myelodysplastic syndrome) (Acute) Hypogammaglobulinemia (Acute) Dementia (Chronic) Renal insufficiency (Chronic) DVT prophylaxis (Acute) Anemia (Chronic) Chronic, followed by oncology-[facility] Pain of left hip joint (Acute) Atherosclerosis of coronary artery without angina pectoris (Acute) Needs assistance while at home (Acute) Closed wedge fracture of lumbar vertebra (Acute) Heartburn (Acute) General unsteadiness (Acute) Lack of energy (Acute) Backache (Acute) Pain in thoracic spine (Acute) Kidney stone (Chronic) Hydronephrosis (Acute) Drug induced constipation (Acute) Diaphragmatic hernia (Acute) Bilateral pleural effusion (Acute) Abdominal aortic aneurysm without rupture (Acute) Heart disease (Acute) Chronic congestive heart failure (Acute) Myocardial infarction (Chronic) Depressive disorder (Chronic) Bilateral hearing loss (Acute) Cardiac pacemaker in situ (Acute) Congestive heart failure (Chronic) COPD (chronic obstructive pulmonary disease) (Chronic) Dyspnea on exertion (Acute 10/06/14) a.? cannot walk more than 20 or 25 feet; he feels like he is going to pass outComplete heart block (Acute 10/06/14) a.? vitals are stable b.? junctional escape at about 63 bpmLeukocytosis (Acute 10/06/14) a.? predominance of lymphocytes, question CLLBenign prostatic hypertrophy (Chronic) Erectile dysfunction (Chronic) Hyperlipidemia (Chronic) GERD (gastroesophageal reflux disease) (Chronic) Hypertension (Chronic) Benign hematuria (Chronic) History of shingles (Chronic) 01/2013 H/O surgical procedure (Chronic) a.? bilateral inguinal herna repairsHistory of tobacco use (Chronic) smoked for 50 years, quit in 1997 Medical History? Aortic aneurysm Claustrophobia (11/30/14) CLL (chronic lymphocytic leukemia) (10/06/14) B-cell Pneumonia Shingles (11/30/14) Surgical History? H/O kyphoplasty L-4, T-10, L-1 History of thoracentesis (~08/30/19) 1250mL of pleural fluid removed Pacemaker (12/07/14) cardiac- in situ Repair of inguinal hernia B/L Social History/Home Situation: Lives alone in an apartment here in town.? No entrance steps. Independent with short distance ambulation using his FWW.? Uses motorized wheelchair for community ambulation.? Daughter Kate lives close by and has been a good help when needed. Equipment Owned/DME: FWW, SPC, motorized wheelchair Subjective: NT. See most recent SHEET METAL ENGINEER notes. Physical Therapy Inpatient Discharge Summary Physical Therapy Inpatient Discharge Summary Objective: General Observation: NT. See most recent SHEET METAL ENGINEER notes. Mental Status: NT. See most recent SHEET METAL ENGINEER notes. Pain: NT. See most recent SHEET METAL ENGINEER notes. Palpation:? NT. See most recent SHEET METAL ENGINEER notes. ROM: Trunk AROM flexion, extension, rotation and lateral flexion decreased by about 50% due to pain level.? Right Lower Extremity: Straight leg raise limited to about 45 degrees before onset of spasms in R lower thoracic/upper lumbar area with no lateralization of pain.? Able to bring knee to his belly to about 100 degrees of hip flexion and knee flexion before pain level increases. Ankle DF to neutral only. Left Lower Extremity: Straight leg raise limited to about 45 degrees before onset of spasms in R lower thoracic/upper lumbar area with no lateralization of pain.? Able to bring knee to his belly to about 100 degrees of hip flexion and knee flexion before pain level increases. Ankle DF to neutral only. Strength: Trunk musculature 3-/5. Right Lower Extremity: Hip flexors 3-/5. Hip abductors 3-/5. Knee flexors 3-/5. Knee extensors 4-/5. Ankle dorsiflexors 3-/5. Ankle plantarflexors 4-/5. Left Lower Extremity: Hip flexors 3-/5. Hip abductors 3-/5. Knee flexors 3-/5. Knee extensors 4-/5. Ankle dorsiflexors 3-/5. Ankle plantarflexors 4-/5. Sensation:? Intact as to pain and light pressure in B LE.? No lateralization of pain with SLR. No numbness reported. Bed Mobility/Transfers: L sidelying to sit minimal assist with cues for safe and pain-free technique Sit to L sidelying minimal assist with cues for safe and pain-free technique Sit to stand minimal assist, needed support of B hands for more controlled and pain-reducing technique Stand to sit minimal assist, needed support of B hands for more controlled and pain-reducing technique Bed to reclining chair minimal assist, needed support of B hands for more controlled and pain-reducing technique THERA ACT to improve mobility performance: 1.? PRT to R thoracic and lumbar paraspinals x 3 minutes combined with gentle bilateral shoulder depression elevation 2.? STM to R thoracic and lumbar paraspinals x 5 minutes combined with left thoracic lean and rotation to L 3.? Gentle bilateral shoulder flexion and extension with simultaneous abdominal bracing x 10 while holding a ball with both hands held forward in sitting 4.? gentle trunk rotation to R and L with simultaneous abdominal bracing x 10 while holding a ball with both hands held forward in sitting 5.? Partial knee bends with abdominal bracing? with ball on back pressing against wall while holding onto FWW x 10 Gait: Instructed patient with level surface ambulation of 100 feet requiring contact guard assist at time of evaluation. At time of transfer to SNF, patient was only able to manage up to 5 feet of distance due to pain. ? Lexy decreased.? Step height decreased. Step length decreased.? Trunk anteroflexed.? Mild SOB? that resolved with rest.? Balance: Static Sitting: Good Dynamic Sitting: Fair Static Standing: Fair Dynamic Standing: Fair ASSESSMENT: R mid thoracic through R upper lumbar area paraspinal muscle strain due to chronic compression fracture, CLL progression, and thoracokyphoscoliosis resulting to mobility limitations and inability to manage at home. No lateralization of pain with SLR.? Patient presents with clinical signs and symptoms consistent with current/admitting diagnoses that have resulted to mobility limitations, gait instability, generalized weakness, and overall ADL decline as demonstrated by the following impairment level findings: 1.? Decreased strength to B LE and trunk muscle groups 2.? Impaired sitting/standing balance 3.? Impaired activity tolerance 4.? Limitation of joint range of motion in trunk and B LE joints Impairments are contributing to the following functional limitations: 1.? Difficulty with ambulation without assistive device 2.? Increased completion time for mobility ADL performance 3.? Increased risk for falls 4.? Inability to thrive at home alone Goals: Goals X1 week 1. L sidelying-Sit independent NOT MET 2. Sit-L sidelying independent NOT MET 3. Sit-Stand independent NOT MET 4. Stand-Sit independent NOT MET 5. Bed-Chair independent NOT MET 6. Chair-Bed independent NOT MET 7. Independent gait on level surface with use of 4WW for at least 300 feet without report of pain nor dyspnea NOT MET 8. Good static and dynamic standing balance/tolerance NOT MET DISCHARGE RECOMMENDATIONS: [] ? Home with no services [] [] ? Home with services [specify] [] ? Home with outpatient PT [] [X] ? SNF for continued rehabilitation.? Patient will benefit from senior care facility placement for continued skilled physical therapy services in order to progress mobility level, strength, and balance in preparation for a safe discharge to home. [] ? Lavatory Attendant Care [] [] ? SNF versus LTC based on ability to participate and progress [] TREATMENT CODE/TIME: NC Thank you for the opportunity to participate in the care of this patient. Sharmaine Avina PT, DPT, CLT [facility] [place], [place]
== END 2022-05-04 13:49 | disposition home or self-care (01) ==
PROVIDERS: Emergency Provider Physician Assistant; PCP Nurse Practitioner Family
DX: M54.9 Dorsalgia, unspecified (principal); G89.29 Other chronic pain; R41.0 Disorientation, unspecified
CPT/HCPCS: 80053; 96360; 99284; 70450; 81003; 81015; 85025; J7512

== ENCOUNTER 2022-05-05 06:41 | Inpatient (IN) | payer MEDICARE, MEDICAID, SELFPAY ==
--- NOTE | 2022-05-05 | DI.RAD_ITS ---
Exam(s) XR LUMBAR SPINE COMPLETE EXAM: XR LUMBAR SPINE COMPLETE CLINICAL HISTORY: CLL pain - poss compression fx. TECHNIQUE: 2D digital imaging was performed. COMPARISON: No exams were available for comparison FINDINGS: Five views There is severe osteopenia. There are kyphoplasty cement findings at T10, L1, and L4. Superior endplate concavity at each level in the lumbar spine noted as well as T12. Disc spaces exh ibit normal height. Sacroiliac joints unremarkable. No obvious sacral fractures realized limitation s due to severe osteopenia. IMPRESSION: Multilevel compression fractures. Kyphoplasty cement evident at the T10, L1 and L4 levels. DATA REPOSITORY: RADIATION DOSE DELIVERED:
--- NOTE | 2022-05-05 | DI.RAD_ITS ---
Exam(s) XR HIP PELVIS ADULT BL EXAM: XR HIP PELVIS ADULT BL CLINICAL HISTORY: CLL - pain ? pathologic fx. TECHNIQUE: 2D digital imaging was performed. COMPARISON: No exams were available for comparison FINDINGS: No fractures evident. However, there are multiple lucencies evident in the bilateral femurs, most pr obably related to this patient's underlying diagnosis of CLL. Mild degenerative change of the hips otherwise noted. No [id number] narrowing. No osteophytes. IMPRESSION: Multiple lucent bone lesions in the femurs bilaterally. This is probably related to CLL diagnosis he re. DATA REPOSITORY: RADIATION DOSE DELIVERED:
[2022-05-05 06:43] VITALS: BP 140/73; PULSE 110; RESP 16; TEMP 36.7; O2SAT 92
--- NOTE | 2022-05-05 07:00 | W.ED.GENAD ---
Discharge Plan Disposition Patient Disposition: STILL A PATIENT Condition: Stable Discharge Details Clinical Impression: Adult failure to thrive, Chronic low back pain Admit Date/Time: 05/06/22 07:44 Admit Provider: Steffi Torres Attending Provider: Steffi Torres Primary Care Provider: Manohar Yadav ED Provider: Tutu Beltran Discharge Data Discharge Date/Time-TO BE ENTERED AT DEPARTURE: 05/05/22 09:10 Medical Decision Making <Tutu Beltran DO - Last Filed: 05/05/22 07:08> 87-year-old male with a past medical history of chronic back pain, pacemaker defibrillator, AAA, hypertension, high cholesterol, CLL, who presents today via EMS for back pain. Patient lives alone at home. He was recently admitted for back pain and subsequently discharged about 5 days ago. He states that he has had back pain ever since his MRI at [facility] on 04/24/2022. This included the time period where he was admitted and then subsequently discharged 3 days ago. There was initial concern that he was unable to complete his ADLs at home, but his stepdaughter who takes care of him according to the discharge summary. Additionally the patient was here yesterday, he came for back pain at that time as well. He had a CT scan of his head which was negative, laboratory work-up which showed slight increase in renal dysfunction, as well as an elevated white count consistent with CLL. Eventually after discussion with his stepdaughter and the patient, he wanted to go home, and did not want to be admitted and was discharged home. He states that this morning starting at 4 AM he had continued return of his back spasm. Daughter upon review of the note seems to imply that he is declining at home, becoming more weak and more confused as of late. Patient complains of his back spasm, and states that his mouth feels dry but otherwise denies any falls, chest pain, or complaints. He states that his back spasm is on the right-hand side. He denies any pain on the left. No other complaints at this time. No other modifying factors. Exam demonstrates well-appearing male, no bowel or bladder incontinence, no saddle anesthesia. 5 out of 5 strength in his lower extremities. Subjective achiness over the right lower lumbar and sacral spine area. Mucous membranes are notably dry. I am concerned with the patient's multiple repeat visits. He seems to be in a state of decline in general. Today as compared to yesterday he is now open to admission and potential rehab upon my discussion with him. Yesterday he did have evidence of slight worsening renal function, and with his dehydration. Currently, I do feel that repeat labs and rehydration are indicated at this time. Pending these, I suspect that the patient would be a good candidate for potential inpatient management and transition to a care facility. We will get case management involved when they arrive at 8 AM. Again, even if there was an aortic component to his current symptoms, the patient is made clear that he does not want any surgical management being done. Symptoms currently are inconsistent with AAA worsening. <Darya Cleveland, - Last Filed: 05/07/22 11:44> 87-year-old male with a past medical history of chronic back pain, pacemaker defibrillator, AAA, hypertension, high cholesterol, CLL, who presents today via EMS for back pain. Patient lives alone at home. He was recently admitted for back pain and subsequently discharged about 5 days ago. He states that he has had back pain ever since his MRI at [facility] on 04/24/2022. This included the time period where he was admitted and then subsequently discharged 3 days ago. There was initial concern that he was unable to complete his ADLs at home, but his stepdaughter who takes care of him according to the discharge summary. Additionally the patient was here yesterday, he came for back pain at that time as well. He had a CT scan of his head which was negative, laboratory work-up which showed slight increase in renal dysfunction, as well as an elevated white count consistent with CLL. Eventually after discussion with his stepdaughter and the patient, he wanted to go home, and did not want to be admitted and was discharged home. He states that this morning starting at 4 AM he had continued return of his back spasm. Daughter upon review of the note seems to imply that he is declining at home, becoming more weak and more confused as of late. Patient complains of his back spasm, and states that his mouth feels dry but otherwise denies any falls, chest pain, or complaints. He states that his back spasm is on the right-hand side. He denies any pain on the left. No other complaints at this time. No other modifying factors. Exam demonstrates well-appearing male, no bowel or bladder incontinence, no saddle anesthesia. 5 out of 5 strength in his lower extremities. Subjective achiness over the right lower lumbar and sacral spine area. Mucous membranes are notably dry. I am concerned with the patient's multiple repeat visits. He seems to be in a state of decline in general. Today as compared to yesterday he is now open to admission and potential rehab upon my discussion with him. Yesterday he did have evidence of slight worsening renal function, and with his dehydration. Currently, I do feel that repeat labs and rehydration are indicated at this time. Pending these, I suspect that the patient would be a good candidate for potential inpatient management and transition to a care facility. We will get case management involved when they arrive at 8 AM. Again, even if there was an aortic component to his current symptoms, the patient is made clear that he does not want any surgical management being done. Symptoms currently are inconsistent with AAA worsening. 05/05/22 Dr. Cleveland Pt not seen or examined by me. Medical Records Medical records reviewed: Yes I reviewed the patient's medical records. HPI <Tutu Beltran DO - Last Filed: 05/05/22 07:08> General Date/Time Provider Initiated Documentation: 05/05/22 06:48. HPI Narrative: 87-year-old male with a past medical history of chronic back pain, pacemaker defibrillator, AAA, hypertension, high cholesterol, CLL, who presents today via EMS for back pain. Patient lives alone at home. He was recently admitted for back pain and subsequently discharged about 5 days ago. He states that he has had back pain ever since his MRI at [facility] on 04/24/2022. This included the time period where he was admitted and then subsequently discharged 3 days ago. There was initial concern that he was unable to complete his ADLs at home, but his stepdaughter who takes care of him according to the discharge summary. Additionally the patient was here yesterday, he came for back pain at that time as well. He had a CT scan of his head which was negative, laboratory work-up which showed slight increase in renal dysfunction, as well as an elevated white count consistent with CLL. Eventually after discussion with his stepdaughter and the patient, he wanted to go home, and did not want to be admitted and was discharged home. He states that this morning starting at 4 AM he had continued return of his back spasm. Daughter upon review of the note seems to imply that he is declining at home, becoming more weak and more confused as of late. Patient complains of his back spasm, and states that his mouth feels dry but otherwise denies any falls, chest pain, or complaints. He states that his back spasm is on the right-hand side. He denies any pain on the left. No other complaints at this time. No other modifying factors. Related Data Home Medications Medication Instructions Recorded Confirmed apixaban 5 mg tablet (Eliquis) 5 mg PO BID #180 tabs 03/01/15 05/05/22 albuterol sulfate 90 mcg/actuation 1 puff inhalation PRN PRN 01/05/22 05/05/22 aerosol inhaler furosemide 20 mg tablet 20 mg DAILY 01/05/22 05/05/22 ipratropium 0.5 mg-albuterol 3 mg 3 ml inhalation DAILY 01/05/22 05/05/22 (2.5 mg base)/3 mL nebulization soln famotidine 20 mg tablet 20 mg PO BID 03/13/22 05/05/22 acetaminophen 650 mg 1,300 mg PO Q8H PRN fever or pain 03/26/22 05/05/22 tablet,extended release (Tylenol 8 #1 tab Hour) prednisone 20 mg tablet See Rx Instructions .Route 05/04/22 05/05/22 .COMPLEX #12 tabs diazepam 5 mg tablet 5 mg PO 05/05/22 Previous Rx's Medication Instructions Recorded acetaminophen 650 mg 1,300 mg PO Q8H PRN fever or pain 03/26/22 tablet,extended release (Tylenol 8 #1 tab Hour) prednisone 20 mg tablet See Rx Instructions .Route 05/04/22 .COMPLEX #12 tabs Allergies Allergy/AdvReac Type Severity Reaction Status Date / Time No Known Allergies Allergy Unverified 05/04/22 07:00 General Stated Complaint: Nk/Back Pain RASHAAD: 4 Review of Systems <Tutu Beltran DO - Last Filed: 05/05/22 07:08> All systems reviewed & are unremarkable except as noted in HPI and below PFSH <Tutu Beltran DO - Last Filed: 05/05/22 07:08> All Active Problems Lytic bone lesion of left femur (Acute) Discharge planning issues (Acute) Chronic back pain (Acute) Adult failure to thrive (Acute) Chronic low back pain (Acute) Failure to thrive in adult (Acute) Low back pain (Acute) Back pain (Acute) Sarcoma of femur (Acute) Risk for falls (Acute) CLL (chronic lymphocytic leukemia) (Acute) 2021-followed by [facility] oncology, has been relatively stable has not required any intervention Pacemaker (Acute 10/10/14) Hypertension (Chronic 11/30/14) GERD (gastroesophageal reflux disease) (Chronic 11/30/14) Complete heart block (Acute 10/07/14) Wears dentures (Acute 11/30/14) MR (mitral regurgitation) (Chronic 10/10/14) MILD ECHO 09/2014 Poor posture (Acute) MDS (myelodysplastic syndrome) (Acute) Hypogammaglobulinemia (Acute) Dementia (Chronic) Renal insufficiency (Chronic) DVT prophylaxis (Acute) Anemia (Chronic) Chronic, followed by oncology-[facility] Pain of left hip joint (Acute) Atherosclerosis of coronary artery without angina pectoris (Acute) Needs assistance while at home (Acute) Closed wedge fracture of lumbar vertebra (Acute) Heartburn (Acute) General unsteadiness (Acute) Lack of energy (Acute) Backache (Acute) Pain in thoracic spine (Acute) Kidney stone (Chronic) Hydronephrosis (Acute) Drug induced constipation (Acute) Diaphragmatic hernia (Acute) Bilateral pleural effusion (Acute) Abdominal aortic aneurysm without rupture (Acute) Heart disease (Acute) Chronic congestive heart failure (Acute) Myocardial infarction (Chronic) Depressive disorder (Chronic) Bilateral hearing loss (Acute) Cardiac pacemaker in situ (Acute) Congestive heart failure (Chronic) COPD (chronic obstructive pulmonary disease) (Chronic) Dyspnea on exertion (Acute 10/06/14) a. cannot walk more than 20 or 25 feet; he feels like he is going to pass out Complete heart block (Acute 10/06/14) a. vitals are stable b. junctional escape at about 63 bpm Leukocytosis (Acute 10/06/14) a. predominance of lymphocytes, question CLL Benign prostatic hypertrophy (Chronic) Erectile dysfunction (Chronic) Hyperlipidemia (Chronic) GERD (gastroesophageal reflux disease) (Chronic) Hypertension (Chronic) Benign hematuria (Chronic) History of shingles (Chronic) 01/2013 H/O surgical procedure (Chronic) a. bilateral inguinal herna repairs History of tobacco use (Chronic) smoked for 50 years, quit in 1997 Medical History Adjustment disorder Aortic aneurysm Claustrophobia (11/30/14) CLL (chronic lymphocytic leukemia) (10/06/14) B-cell Paroxysmal A-fib Pneumonia Shingles (11/30/14) Surgical History H/O kyphoplasty L-4, T-10, L-1 History of thoracentesis (~08/30/19) 1250mL of pleural fluid removed Pacemaker (12/07/14) cardiac- in situ Repair of inguinal hernia B/L Family History Mother , 90 Stroke Father , 75 Accidental HORSE FELL ON HIM Heart disease Son , 50 Alcohol use disorder Son , 60 Alcohol use disorder Social History Smoking/Tobacco Use Status: Former Tobacco Use Quit Date: 10/20/97 Second Hand Exposure: Yes Smoking risk assessment performed?: Yes Alcohol Intake: former Drug use: Never Substance use type: does not use Caregiver/Support person: No Household members: none Housing: apartment Do you need help understanding health information?: Always Pets and animals: No Sexually active: No Do you think of yourself as: straight/heterosexual Current gender identity: male What is your relationship status?: How often do you talk on the phone with friends or family?: three or more times per week How often do you get together with friends or relatives?: three or more times per week How often do you attend muslim or druze services?: decline to answer Do you belong to any clubs or organized social groups?: no Panel score (0-1 are the most socially isolated patients): 1 What type of physical activity do you participate in: none Seatbelt use: always Helmet use: No Drive intox or ride w/intox 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 3.ENT: Atraumatic external nose and ears. Dry MM. Neck: Symmetric, trachea midline, No thyromegaly. 4.CVS: +S1/S2, No murmurs or gallops. Peripheral pulses 2+ and equal in all extremities. Brisk capillary refill in all extremities. 5.RESP: Unlabored respiratory effort. Clear to auscultation bilaterally. No wheezes rales or rhonchi 6.GI: Soft, Nontender/Nondistended, No hepatosplenomegaly. No guarding or rebound. 7.MSK: Normocephalic/Atraumatic, Extremities w/o deformity or ttp No cyanosis or clubbing, Normal movement of all extremities. No saddle anesthesia. No bowel or bladder incontinence. 5 out of 5 strength in lower extremities. Subjective pain in the right lower back, around the SI joint and the right lower sacral and lumbar spine. No pain on the left. No pain over the left hip. 8.Skin: Warm, Dry. No rashes or lesions. 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 Sensation grossly intact, no focal neurologic deficits. 10.Psych: (AAO) x3. Appropriate mood and affect Course <Tutu Beltran DO - Last Filed: 05/05/22 07:08> Vital Signs Vital signs: Vital Signs Temperature 36.7 C 05/05/22 06:43 Pulse 110 H 05/05/22 06:43 Respiratory Rate 16 05/05/22 06:43 Blood Pressure 140/73 05/05/22 06:43 Pulse Oximetry 92 05/05/22 06:43 Temperature 36.7 C 05/05/22 06:43 Temperature Source Temporal Artery Scan 05/05/22 06:43 Pulse 110 H 05/05/22 06:43 Respiratory Rate 16 05/05/22 06:43 Respiratory Effort 05/05/22 06:43 Blood Pressure 140/73 05/05/22 06:43 Blood Pressure Position Supine 05/05/22 06:43 Pulse Oximetry 92 05/05/22 06:43 Oxygen Delivery Method Room Air 05/05/22 06:43 Oxygen Flow Rate 0 05/05/22 06:43 Pain Level 10 05/05/22 06:43 Sign Out <Tutu Beltran DO - Last Filed: 05/05/22 07:08> Sign Out Data: Sign Out Comment: failure to thrive, needs admission Last updated by Tutu Beltran DO at 05/05/22 07:50
[2022-05-05] MEDS: Cyclobenzaprine 10 MG TAB PO (07:02)
[2022-05-05] MEDS: Lidocaine 5% Patch 1 PATCH TP (07:02)
[2022-05-05 07:18] LABS: Source Nasal/Nares
[2022-05-05 07:21] LABS: HCT 36.1 % (40.0-50.0); HGB 11.2 g/dL (13.5-17.5); MCH 31.4 pg (27.0-33.0); MCV 101 fL (80-95); MPV 10.4 fL (8.0-11.0); Platelet Count 194 10^3/uL (130-400); RBC 3.57 10^6/uL (4.36-5.78); RDW 14.6 % (11.8-14.1)
[2022-05-05] MEDS: Normal Saline 1,000 ML 1000 ML IV (07:23)
[2022-05-05 07:35] LABS: ALT 15 U/L (16-63); AST 14 U/L (15-37); Albumin 4.1 g/dL (3.4-5.0); Alkaline Phosphatase 69 U/L (46-116); Anion Gap 13.2 mmol/L (3-11); BUN 61 mg/dL (7-18); CO2 21.8 mmol/L (21.0-32.0); CREATININE 1.8 mg/dL (0.70-1.30); Calcium 8.7 mg/dL (8.5-10.1); Chloride 102 mmol/L (98-107); Estimated GFR 35.95 (mL/min/1.73m2); Glucose 120 mg/dL (74-106); Potassium 4.6 mmol/L (3.5-5.1); Sodium 137 mmol/L (136-145); Total Protein 6.8 g/dL (6.4-8.2)
[2022-05-05 07:37] LABS: Absolute Lymphocyte Count 69.08 10^3/uL (1.2-3.4); Absolute Monocyte Count 0.79 10^3/uL (0.1-0.8); Absolute Neutrophil Count 8.64 10^3/uL (1.2-6.7); Diff Comment Manual Differential; RBC Morphology Normal
[2022-05-05 08:10] LABS: COVID-19 PCR Negative (Negative)
[2022-05-05 09:08] VITALS: BP 139/59; PULSE 82; RESP 17; O2SAT 93
[2022-05-05 09:23] VITALS: BP 125/70; PULSE 80; RESP 18; TEMP 37.3; O2SAT 94
[2022-05-05] MEDS: Lactated Ringers 1,000 ML 75 ML IV (10:00)
--- NOTE | 2022-05-05 12:02 | HPE_ITS ---
Date of service: 05/05/22 Time of Service: 10:00 Assessment and Plan Assessment and plan (1) CLL (chronic lymphocytic leukemia): Status: Acute Assessment and plan: While this is a chronic condition, it has caused infiltrative bone disease which is so significant that he has an impending L femoral neck pathologic fracture noted on imaging (MRI pelvis from [facility] 04/24/22) . Infiltrative bone disease is incredibly painful and is causing this patient a very significant disability. Will have orthopedics evaluate the patient for a prophylactic hip surgery. Will likely require oncologic orthopedic evaluation. Discussed with Dr Horton. Focus on pain control. Palliative care consult. (2) Chronic back pain: Status: Acute Assessment and plan: He has had no new injury - will image - potential pathological fracture. Pain medication Lidocaine patch Intermittent heat/cold Prednisone and valium (3) Adult failure to thrive: Status: Acute Assessment and plan: He has had multiple visits to the emergency department and is decompinsating and failing to manage on his own at home. He does not have home health services (he is reportedly not homebound) and his family does help but it is unclear how much. He is now considering shelter placement, he has been resistant and refused in the past. , (4) Dementia: Status: Chronic Assessment and plan: He has been more confused in the past few weeks, unclear if it is a reaction to medication or progressing dementia. His head CT was negative 05/04/2022 in the ED for anything acute. (5) Risk for falls: Status: Acute Assessment and plan: He is a high risk for falls, PT will assess; usual fall precautions in place (6) COPD (chronic obstructive pulmonary disease): Status: Chronic Assessment and plan: Chronic - no exacerbation -continue duoneb (7) Hypertension: Status: Chronic Assessment and plan: Chronic - monitor (he does not take any antihypertensives) (8) GERD (gastroesophageal reflux disease): Status: Chronic Assessment and plan: Chronic - continue famotidine (9) DVT prophylaxis: Status: Acute Assessment and plan: He is on apixaban, history PAF (10) Discharge planning issues: Status: Acute Assessment and plan: DNR/DNI PT c/s. Palliative care consult [facility] [place] History of Present Illness History of Present Illness Chief Complaint: Acute on chronic back pain Narrative: This is an 87 year old male with a past medical history including chronic back pain, multiple compression fractures of lumbar vertebra.CLL, hypertension, GERD, Pacemaker (PAF, 2014), AAA, high cholesterol, adult failure to thrive. His CT 03/10 demonstrates fractures at multiple thoracic levels and all lumbar levels with corresponding vertebroplasties L1-4; An MRI of his spine, April 24, 2022, at [facility] [place] shows similar findings. Patient lives alone. He was hospitalized overnight 04/29/2022 for acute on chronic back pain for pain control and PT. He was discharged to home without services (he is not homebound) 04/30/2022. He saw Dr Martines for follow up after hospitalization, at his office 05/01/2022 and started on Methocarbinol for muscle spasms. He came to the [facility] Emergency Department 05/04/2022 in the morning with the complaint of new confusion, for 2 days. It was unclear if the tramadol and methocarbinol he was newly taking was causing the new sudden onset of confusion. No specific injury, no fall, no trauma. Feels comfortable at rest, but has significant pain with any movement. He had a CT of his head that had no acute findings. His urine was negative for infection. , laboratory work-up which showed slight increase in renal dysfunction, as well as an elevated white count consistent with CLL.? Eventually after discussion with his stepdaughter and the patient, he wanted to go home, and did not want to be admitted and was discharged home.? He states that this morning starting at 4 AM he had continued return of his back spasm.? Daughter now states he is declining at home, becoming more weak and more confused as of late.? Patient complains of his back spasm, and states that his mouth feels dry but otherwise denies any falls, chest pain, or complaints since he left the emergency department yesterday.? He states that his back spasm is on the right-hand side.? He denies any pain on the left.? No other complaints at this time.? No other modifying factors. There was not anymore imaging done in the emergency department secondary to the proximity of the recent diagnostic studies. He was discharged to home with a new prescription for prenisone and valium. He returned back to the [facility] Emergency Department at 0700 this morning, 05/05/2022, stating he would like to consider admission to the hospital and / or half-way care. He is admitted for observation on the medical surgical unit. Discussed with Dr Torres Review of Systems All systems reviewed & are unremarkable except as noted in HPI and below PFSH All Active Problems Discharge planning issues (Acute) Chronic back pain (Acute) Adult failure to thrive (Acute) Chronic low back pain (Acute) Failure to thrive in adult (Acute) Low back pain (Acute) Back pain (Acute) Sarcoma of femur (Acute) Risk for falls (Acute) CLL (chronic lymphocytic leukemia) (Acute) 2021-followed by [facility] oncology, has been relatively stable has not required any intervention Pacemaker (Acute 10/10/14) Hypertension (Chronic 11/30/14) GERD (gastroesophageal reflux disease) (Chronic 11/30/14) Complete heart block (Acute 10/07/14) Wears dentures (Acute 11/30/14) MR (mitral regurgitation) (Chronic 10/10/14) MILD ECHO 09/2014 Poor posture (Acute) MDS (myelodysplastic syndrome) (Acute) Hypogammaglobulinemia (Acute) Dementia (Chronic) Renal insufficiency (Chronic) DVT prophylaxis (Acute) Anemia (Chronic) Chronic, followed by oncology-[facility] Pain of left hip joint (Acute) Atherosclerosis of coronary artery without angina pectoris (Acute) Needs assistance while at home (Acute) Closed wedge fracture of lumbar vertebra (Acute) Heartburn (Acute) General unsteadiness (Acute) Lack of energy (Acute) Backache (Acute) Pain in thoracic spine (Acute) Kidney stone (Chronic) Hydronephrosis (Acute) Drug induced constipation (Acute) Diaphragmatic hernia (Acute) Bilateral pleural effusion (Acute) Abdominal aortic aneurysm without rupture (Acute) Heart disease (Acute) Chronic congestive heart failure (Acute) Myocardial infarction (Chronic) Depressive disorder (Chronic) Bilateral hearing loss (Acute) Cardiac pacemaker in situ (Acute) Congestive heart failure (Chronic) COPD (chronic obstructive pulmonary disease) (Chronic) Dyspnea on exertion (Acute 10/06/14) a. cannot walk more than 20 or 25 feet; he feels like he is going to pass out Complete heart block (Acute 10/06/14) a. vitals are stable b. junctional escape at about 63 bpm Leukocytosis (Acute 10/06/14) a. predominance of lymphocytes, question CLL Benign prostatic hypertrophy (Chronic) Erectile dysfunction (Chronic) Hyperlipidemia (Chronic) GERD (gastroesophageal reflux disease) (Chronic) Hypertension (Chronic) Benign hematuria (Chronic) History of shingles (Chronic) 01/2013 H/O surgical procedure (Chronic) a. bilateral inguinal herna repairs History of tobacco use (Chronic) smoked for 50 years, quit in 1997 Medical History Adjustment disorder Aortic aneurysm Claustrophobia (11/30/14) CLL (chronic lymphocytic leukemia) (10/06/14) B-cell Paroxysmal A-fib Pneumonia Shingles (11/30/14) Surgical History H/O kyphoplasty L-4, T-10, L-1 History of thoracentesis (~08/30/19) 1250mL of pleural fluid removed Pacemaker (12/07/14) cardiac- in situ Repair of inguinal hernia B/L Family History Mother , 90 Stroke Father , 75 Accidental HORSE FELL ON HIM Heart disease Son , 50 Alcohol use disorder Son , 60 Alcohol use disorder Social History Smoking/Tobacco Use Status: Former Tobacco Use Quit Date: 10/20/97 Second Hand Exposure: Yes Smoking risk assessment performed?: Yes Alcohol Intake: former Drug use: Never Substance use type: does not use Caregiver/Support person: No Household members: none Housing: apartment Do you need help understanding health information?: Always Pets and animals: No Sexually active: No Do you think of yourself as: straight/heterosexual Current gender identity: male What is your relationship status?: How often do you talk on the phone with friends or family?: three or more times per week How often do you get together with friends or relatives?: three or more times per week How often do you attend temple or pentecostal services?: decline to answer Do you belong to any clubs or organized social groups?: no Panel score (0-1 are the most socially isolated patients): 1 What type of physical activity do you participate in: none Seatbelt use: always Helmet use: No Drive intox or ride w/intox class a regional truck driver: No Do you feel safe at home: Yes Do you feel safe in your relationship?: Yes Meds Allergies and Home Medications Allergies Allergy/AdvReac Type Severity Reaction Status Date / Time No Known Allergies Allergy Unverified 05/04/22 07:00 Home Medications Medication Instructions Recorded Confirmed Type apixaban 5 mg tablet (Eliquis) 5 mg PO BID #180 tabs 03/01/15 05/05/22 History albuterol sulfate 90 mcg/actuation 1 puff inhalation PRN PRN 01/05/22 05/05/22 History aerosol inhaler furosemide 20 mg tablet 20 mg DAILY 01/05/22 05/05/22 History ipratropium 0.5 mg-albuterol 3 mg 3 ml inhalation DAILY 01/05/22 05/05/22 History (2.5 mg base)/3 mL nebulization soln famotidine 20 mg tablet 20 mg PO BID 03/13/22 05/05/22 History acetaminophen 650 mg 1,300 mg PO Q8H PRN fever or pain 03/26/22 05/05/22 Rx tablet,extended release (Tylenol 8 #1 tab Hour) prednisone 20 mg tablet See Rx Instructions .Route 05/04/22 05/05/22 Rx .COMPLEX #12 tabs diazepam 5 mg tablet 5 mg PO 05/05/22 History Exam Const General: cooperative, comfortable, no acute distress and not ill appearing HENMT Mouth: oral mucosae normal Neck Neck: normal visual inspection and no JVD Resp Auscultation: clear to auscultation bilaterally and no wheezes Cardio Rate: regular rate Rhythm: regular rhythm Heart Sounds: no murmurs GI Inspection: normal to inspection and non-distended Palpation: soft, not firm and nontender Back/Spine/Pelvis Thoracic/Lumbar Spine: thoracic and lumbar spine normal to inspection and pain with thoraco-lumbar ROM Pelvis: no pain with anterior-posterior compression Sacrum: no ecchymosis and no erythema Coccyx: no swelling and tenderness Neuro General: patient alert, patient awake and patient oriented x3 Extrem General: normal to inspection, no cyanosis and no edema Psych Mental Status: mental status grossly normal Speech and Movement: speech and movement normal Mood: congruent mood Affect: normal affect Results Labs Result diagrams: 05/05/22 07:15 05/06/22 05:15 Labs: Laboratory Results - last 24 hr 05/05/22 05/05/22 05/05/22 07:15 07:15 07:15 WBC 78.50 H* RBC 3.57 L Hgb 11.2 L Hct 36.1 L MCV 101 H MCH 31.4 MCHC 31.0 L RDW 14.6 H Plt Count 194 MPV 10.4 Immature Gran % 0.0 Neutrophils % 11.0 Lymphocytes % 88.0 Monocytes % 1.0 Eosinophils % 0.0 Basophils % 0.0 Nucleated RBC % 0.0 Absolute Neutrophils 8.64 H Absolute Lymphocytes 69.08 H Absolute Monocytes 0.79 Absolute Eosinophils 0.00 Absolute Basophils 0.00 RBC Morphology Normal Sodium 137 Potassium 4.6 Chloride 102 Carbon Dioxide 21.8 Anion Gap 13.2 H BUN 61 H Creatinine 1.8 H Estimated GFR/1.73 m2 35.95 Glucose 120 H Calcium 8.7 Total Bilirubin 1.0 AST 14 L ALT 15 L Alkaline Phosphatase 69 Total Protein 6.8 Albumin 4.1 COVID-19 Source Nasal/Nares SARS-CoV-2 (PCR) Negative Last Vital Signs Temp 37.3 C 05/05/22 09:23 Pulse 80 05/05/22 09:23 Resp 18 05/05/22 09:23 BP 125/70 05/05/22 09:23 Pulse Ox 94 05/05/22 09:23
[2022-05-05] MEDS: MORPHine 2 MG/ML SYR IVP (12:04)
[2022-05-05] MEDS: Methocarbamol 500 MG TAB PO ×2 (12:04→17:05)
[2022-05-05] MEDS: Normal Saline Flush 10 ML SYR IVP (12:05)
[2022-05-05 15:30] VITALS: BP 110/60; PULSE 80; RESP 19; TEMP 37.1; O2SAT 94
--- NOTE | 2022-05-05 16:53 | DI.VRAD_ITS ---
PROCEDURE INFORMATION: Exam: XR Left Hip Exam date and time: 05/05/2022 4:02 PM Age: 87 years old Clinical indication: Other: Cll-pain, ? patholofic FX TECHNIQUE: Imaging protocol: Radiologic exam of the Left hip. Views: 2 or 3 views hip with pelvis when performed. COMPARISON: MR PELVIS^ADULT 04/24/2022 3:19 PM FINDINGS: Bones/joints: Osteopenia. No acute fractures are identified. Hip joint spaces and articular surfaces are grossly well-maintained. Bilateral multifocal lucency and endosteal scalloping in the femoral diaphyses consistent with the patient's history of CLL, with no sites of suspected pathological fracture. The visualized SI joints, pubic symphysis, and sacrum/pelvis were unremarkable. Chronic L4 compression fracture with prior vertebroplasty again noted. Soft tissues: No gross soft tissue abnormalities. Other findings: Normal alignment. IMPRESSION: 1. No acute fractures are evident. 2. Multifocal medullary lucency with endosteal scalloping in the femoral diaphyses likely related to the patient's history of CLL. No sites of pathological fracture are identified currently. 3. Osteopenia. Dictated and Authenticated by: Keagan Mohan MD. Ordering:RAMÓN Tafoya MD
--- NOTE | 2022-05-05 16:57 | DI.VRAD_ITS ---
PROCEDURE INFORMATION: Exam: XR Lumbosacral Spine Exam date and time: 05/05/2022 4:04 PM Age: 87 years old Clinical indication: Other: Cll pain, possible compression FX TECHNIQUE: Imaging protocol: Radiologic exam of the lumbosacral spine. Views: 4 or 5 views. COMPARISON: CT LUMBAR SPINE WO 02/24/2022 10:09 AM FINDINGS: Bones/joints: osteopenia limits evaluation. There has been no convincing interval vertebral body height loss since prior CT from 02/24/2022. Redemonstrated kyphoplasty changes of T10, L1, and L4. Similar degenerative changes. Soft tissues: Unremarkable. Vasculature: Redemonstrated abdominal aortic aneurysm. IMPRESSION: Similar/stable appearance of the lumbar spine compared to prior CT from 02/24/2022. There are no definite acute findings however evaluation is limited by osteopenia. Dictated and Authenticated by: Charanjit Kinney MD. Ordering:RAMÓN Tafoya MD
[2022-05-05] MEDS: diazePAM 2 MG TAB PO (18:25)
[2022-05-05 19:53] VITALS: BP 101/54; PULSE 70; RESP 20; TEMP 36.6; O2SAT 95
[2022-05-06] MEDS: Lactated Ringers 1,000 ML 75 ML IV (01:09)
[2022-05-06] MEDS: MORPHine 2 MG/ML SYR IVP ×2 (05:14→11:43)
[2022-05-06 05:18] VITALS: BP 100/54; PULSE 67; RESP 17; TEMP 36.2; O2SAT 93
[2022-05-06 05:57] LABS: BUN 40 mg/dL (7-18); CREATININE 1.3 mg/dL (0.70-1.30); Calcium 8.2 mg/dL (8.5-10.1); Chloride 103 mmol/L (98-107); Estimated GFR 52.34 (mL/min/1.73m2); Glucose 95 mg/dL (74-106); Magnesium 2.7 mg/dL (1.8-2.4); Potassium 3.9 mmol/L (3.5-5.1); Sodium 136 mmol/L (136-145)
[2022-05-06 06:10] LABS: INR 1.1 (0.9-1.1)
[2022-05-06] MEDS: Pantoprazole 40 MG TABCR PO (09:14)
[2022-05-06] MEDS: predniSONE 20 MG TAB 40 MG PO (09:15)
[2022-05-06] MEDS: Acetaminophen 325 MG TAB PO (09:15)
[2022-05-06 09:44] VITALS: BP 123/69; PULSE 89; RESP 18; TEMP 36.5; O2SAT 92
--- NOTE | 2022-05-06 09:45 | INITIAL_ITS ---
- If Service Date Differs Date of service: 05/06/22 Time of Service: 09:45 Care Management Initial Assess REASON FOR HOSPITALIZATION:: Back pain, dehydration, CLL, failure to thrive PAST MEDICAL HISTORY/PAST SURGICAL HISTORY:: Medical History . Adjustment disorder. Aortic aneurysm. Claustrophobia (11/30/14). CLL (chronic lymphocytic leukemia) (10/06/14). B- cell. Paroxysmal A-fib. Pneumonia. Shingles (11/30/14). Surgical History . H/O kyphoplasty. L-4, T-10, L-1. History of thoracentesis (~08/30/19). 1250mL of pleural fluid removed. Pacemaker (12/07/14). cardiac- in situ. Repair of inguinal hernia. B/L PREVIOUS FUNCTIONAL STATUS/SOCIAL/FAMILY SUPPORTS:: Micky is and lives alone at the [facility] in [facility]. He is independent with his ADL's and if he ever needs anything he calls his daughter Kate Molina who lives up the street. He uses a walker to ambulate and travels often to his daughter's house using his motorized scooter. He uses [facility] to transport to his doctor's appointments, and Kate transports him everywhere else. They have a good relationship and are very close. His step-daughter reports he cooks for himself, bathes himself, goes out on a scooter most days, is very active and she visits him at least daily. Her also visits. They live close to him. More recently, Micky experienced a CURRENT FUNCTIONAL STATUS:: Micky was laying on his side, sleeping. CM did not disturb at this time. Has patient been provided with info about the portal/API?: Yes Did the patient sign up for the portal?: No CODE STATUS:: DNR/DNI INSURANCE COVERAGE / FINANCIAL ISSUES:: Medicare. Medicaid CURRENT HOME/COMMUNITY SERVICES/EQUIPMENT:: None, currently. PRIMARY CARE PHYSICIAN:: Manohar Yadav POTENTIAL DISCHARGE NEEDS:: Evaluations for increase service needs. Possible surgical intervention. PATIENT/FAMILY EDUCATION NEEDS:: Review of discharge instructions, discuss Ask Me Three. ANTICIPATED BARRIERS TO DISCHARGE:: Patient with multiple admissions; may require SNF; dependent on surgical needs. TRANSPORTATION:: TBD by mobility and disposition. PLAN:: Home Health if needed; Medicaid does not requrie patient be homebound. Micky may require fracture fx; awaiting determination from orthopedic surgeon. CM continues to follow.
[2022-05-06 12:00] VITALS: BP 120/68; PULSE 81; RESP 20; TEMP 36.9; O2SAT 94
--- NOTE | 2022-05-06 13:07 | W.ORTHOCONSU ---
Date of service: 05/06/22 Time of Service: 11:55 History of Present Illness History of Present Illness Chief Complaint: Low back pain and left proximal femoral lesion and CLL Narrative: Micky is an 87-year-old who has known chronic lymphocytic leukemia in addition to many other medical issues. He has had recurrent issues with low back pain, mostly on the right side of the left side. He has been admitted multiple times in the emergency department and in the hospital for this pain and muscle spasms. He has had 4 vertebroplasty's for his low back pain in the past due to compression fractures, likely related to bone integrity from CLL. More recently, during one of his admissions to the emergency department, he had a CT scan which showed a lytic lesion about the left femur. This prompted an MRI of the left hip which was completed about 10 days ago at [facility]. He is awaiting follow-up for this. He denies any left hip pain. He denies any pain with standing or walking. Once again, he reports majority of his pain is being within the back although it was much better until the MRI which worsened it. He describes most the pain as being a spasm where he has very little pain and then will suddenly become incapacitated with some pain, once again mostly over the right side and centrally in the low back. He denies any bowel or bladder changes. He still reports been able to stand and walk except for when he is having exacerbations of pain. Consults Consult date: 05/06/22 Requesting physician: Steffi Torres Consult Reason Ongoing low back pain and lytic bone lesions Assessment and Plan Assessment and plan (1) Lytic bone lesion of left femur: Status: Acute Assessment and plan: Mr. Kohler is an 87-year-old who has chronic low sick leukemia with bone involvement and has had worsening low back pain. Has multiple compression fractures and has had per his report at least 3 or 4 vertebroplasty procedures. Unfortunate, I not have much to offer in regards to the low back. His bone quality is dramatically worsened due to the leukemia. The multiple compression fractures will cause pain and I think the majority of his pain is due to deconditioning, muscle spasms, and the multiple collapsed vertebral bodies. He does not have neurologic involvement and therefore there is no need for urgent intervention and I do expect with continued care of amatory support, massage, heat, and core and paraspinal strengthening he can have some improvement. Judicial use of medications would also be reasonable in this situation. In regards to the left femur lesion, it does score a 9 or 10 on palacios criteria which would indicate prophylactic fixation to be beneficial. However, he has significant medical comorbidities which makes him a high risk candidate for anesthesia. This would need to be discussed with her anesthesia team to see if even possible here. Additionally, he has no major functional pain in the left hip and the majority of his symptoms are his low back and occasionally his right hip. I do worry that proceeding to the left side at this point would only exacerbate the other underlying conditions. I think is imperative to have input from the specialist team dealing with his cancer and with these bone lesions. I would recommend protected weightbearing at this time with a walker and continued supportive care for his low back. Abdominal binder could also be considered to help provide support and pain relief. (2) CLL (chronic lymphocytic leukemia): Status: Acute Assessment and plan: Mr. Kohler has multiple scalloped lesions throughout his skeleton as viewed on x-rays which is likely related to a heightened activity level of his leukemia. His white blood cell count is the highest that I can see in our record. I think is imperative that we have input from hematology and oncology as a portion of his pain could be just related to the active process of the leukemia. Review of Systems All systems reviewed & are unremarkable except as noted in HPI and below PFSH All Active Problems Lytic bone lesion of left femur (Acute) Discharge planning issues (Acute) Chronic back pain (Acute) Adult failure to thrive (Acute) Chronic low back pain (Acute) Failure to thrive in adult (Acute) Low back pain (Acute) Back pain (Acute) Sarcoma of femur (Acute) Risk for falls (Acute) CLL (chronic lymphocytic leukemia) (Acute) 2021-followed by [facility] oncology, has been relatively stable has not required any intervention Pacemaker (Acute 10/10/14) Hypertension (Chronic 11/30/14) GERD (gastroesophageal reflux disease) (Chronic 11/30/14) Complete heart block (Acute 10/07/14) Wears dentures (Acute 11/30/14) MR (mitral regurgitation) (Chronic 10/10/14) MILD ECHO 09/2014 Poor posture (Acute) MDS (myelodysplastic syndrome) (Acute) Hypogammaglobulinemia (Acute) Dementia (Chronic) Renal insufficiency (Chronic) DVT prophylaxis (Acute) Anemia (Chronic) Chronic, followed by oncology-[facility] Pain of left hip joint (Acute) Atherosclerosis of coronary artery without angina pectoris (Acute) Needs assistance while at home (Acute) Closed wedge fracture of lumbar vertebra (Acute) Heartburn (Acute) General unsteadiness (Acute) Lack of energy (Acute) Backache (Acute) Pain in thoracic spine (Acute) Kidney stone (Chronic) Hydronephrosis (Acute) Drug induced constipation (Acute) Diaphragmatic hernia (Acute) Bilateral pleural effusion (Acute) Abdominal aortic aneurysm without rupture (Acute) Heart disease (Acute) Chronic congestive heart failure (Acute) Myocardial infarction (Chronic) Depressive disorder (Chronic) Bilateral hearing loss (Acute) Cardiac pacemaker in situ (Acute) Congestive heart failure (Chronic) COPD (chronic obstructive pulmonary disease) (Chronic) Dyspnea on exertion (Acute 10/06/14) a. cannot walk more than 20 or 25 feet; he feels like he is going to pass out Complete heart block (Acute 10/06/14) a. vitals are stable b. junctional escape at about 63 bpm Leukocytosis (Acute 10/06/14) a. predominance of lymphocytes, question CLL Benign prostatic hypertrophy (Chronic) Erectile dysfunction (Chronic) Hyperlipidemia (Chronic) GERD (gastroesophageal reflux disease) (Chronic) Hypertension (Chronic) Benign hematuria (Chronic) History of shingles (Chronic) 01/2013 H/O surgical procedure (Chronic) a. bilateral inguinal herna repairs History of tobacco use (Chronic) smoked for 50 years, quit in 1997 Medical History Adjustment disorder Aortic aneurysm Claustrophobia (11/30/14) CLL (chronic lymphocytic leukemia) (10/06/14) B-cell Paroxysmal A-fib Pneumonia Shingles (11/30/14) Surgical History H/O kyphoplasty L-4, T-10, L-1 History of thoracentesis (~08/30/19) 1250mL of pleural fluid removed Pacemaker (12/07/14) cardiac- in situ Repair of inguinal hernia B/L Family History Mother , 90 Stroke Father , 75 Accidental HORSE FELL ON HIM Heart disease Son , 50 Alcohol use disorder Son , 60 Alcohol use disorder Social History Smoking/Tobacco Use Status: Former Tobacco Use Quit Date: 10/20/97 Second Hand Exposure: Yes Smoking risk assessment performed?: Yes Alcohol Intake: former Drug use: Never Substance use type: does not use Caregiver/Support person: No Household members: none Housing: apartment Do you need help understanding health information?: Always Pets and animals: No Sexually active: No Do you think of yourself as: straight/heterosexual Current gender identity: male What is your relationship status?: How often do you talk on the phone with friends or family?: three or more times per week How often do you get together with friends or relatives?: three or more times per week How often do you attend episcopal or confucianism services?: decline to answer Do you belong to any clubs or organized social groups?: no Panel score (0-1 are the most socially isolated patients): 1 What type of physical activity do you participate in: none Seatbelt use: always Helmet use: No Drive intox or ride w/intox superintendent drivers: No Do you feel safe at home: Yes Do you feel safe in your relationship?: Yes Exam Const General: cooperative, comfortable, no acute distress, well developed and not in acute distress Nutritional Appearance: average body habitus Orientation: alert, awake, oriented to person and oriented to place HENMT Head: normal to inspection Extrem Other: He is able to move freely in the hospital bed. He does have pain to palpation throughout the low back region focus mostly at L4-5, L5, S1 both centrally and paraspinally, slightly worse on the right side. He also has some tenderness about T12-L1. There is no step-off palpation however the pain is both central and in the paraspinal region. Straight leg raise testing does not cause any radicular symptoms however it does recreate some low back pain. This is seen most with the right leg. Brief neuro exam demonstrates no significant focal weakness from L3-S1, although there may be some global deconditioning, all strength is at least 4+. Sensation is intact to light touch from L3-S1. Evaluation of the left leg does not show any significant skin changes or overlying abnormalities. He is able to move freely in the bed. He tolerates internal and external rotation of the left hip with no significant discomfort. Passively, I am able to internally rotate the left hip approximately 20 degrees and externally rotate 55 degrees all without significant pain. Stinchfield test recreates very minimal pain located mostly in his back. Axially loading the left hip does not cause pain. Evaluation of the right leg shows similar findings of good range of motion passively about the right hip with about 25 degrees of internal rotation and 60 degrees of external rotation. Stinchfield test recreates low back pain on the right side much more intense than the left. No groin pain. No buttock pain. Results Last Vital Signs Temp 36.9 C 05/06/22 12:00 Pulse 81 05/06/22 12:00 Resp 20 05/06/22 12:00 BP 120/68 05/06/22 12:00 Pulse Ox 94 05/06/22 12:00 Labs Result diagrams: 05/05/22 07:15 05/06/22 05:15 Labs: Laboratory Results - last 24 hr 05/06/22 05/06/22 05:15 05:15 PT 11.0 INR 1.1 Sodium 136 Potassium 3.9 Chloride 103 Carbon Dioxide 28.0 Anion Gap 5.0 BUN 40 H Creatinine 1.3 Estimated GFR/1.73 m2 52.34 Glucose 95 Calcium 8.2 L Magnesium 2.7 H Imaging Imaging Studies: CT scan of the pelvis from February shows a lytic lesion involving the anterior aspect of the base of the left femoral neck. This does penetrate the cortex and a small area anteriorly and there does seem to be significant lysis of normal bone mineralization intramedullary. There is apparently some scalloping throughout the majority of the bone of the left proximal femur as well as the right proximal femur. X-ray of the pelvis performed at this admission shows scalloping of the endosteal cortex is a both right and left femurs. There is patchy demineralization throughout the pelvis. X-ray of the lumbar spine performed during this admission shows multiple compression fractures throughout the lumbar spine, most notably at L2. Previous vertebroplasty cement is seen at L1 and L4. MRI of the pelvis performed at [facility] on April 24 was also reviewed which demonstrates the above-mentioned lytic lesions without significant soft tissue mass. Gross bone bone marrow replacement.
--- NOTE | 2022-05-06 13:18 | PGE_ITS ---
Date of Service Date of service: 05/06/22 Time of Service: 13:18 Assessment and Plan Assessment and plan (1) CLL (chronic lymphocytic leukemia): Status: Acute Assessment and plan: While this is a chronic condition, it has caused infiltrative bone disease which is so significant that he has an impending L femoral neck pathologic fracture noted on imaging (MRI pelvis from [facility] 04/24/22) . Infiltrative bone disease is incredibly painful and is causing this patient a very significant disability. Will have orthopedics evaluate the patient for a prophylactic hip surgery. Will likely require oncologic orthopedic evaluation. Discussed with Dr Horton. Focus on pain control. Palliative care consult. (2) Chronic back pain: Status: Acute Assessment and plan: He has had no new injury -as above Pain medication Lidocaine patch Intermittent heat/cold Prednisone and valium (3) Adult failure to thrive: Status: Acute Assessment and plan: He has had multiple visits to the emergency department and is decompinsating and failing to manage on his own at home. He does not have home health services (he is reportedly not homebound). His family does help but it is unclear how much. He is now considering [facility] placement, until now he has been resistant and refused in the past. (4) Dementia: Status: Chronic Assessment and plan: He has been more confused in the past few weeks, unclear if it is a reaction to medication or progressing dementia. His head CT was negative 05/04/2022 in the ED for anything acute. (5) Risk for falls: Status: Acute Assessment and plan: He is a high risk for falls, PT will assess; usual fall precautions in place (6) COPD (chronic obstructive pulmonary disease): Status: Chronic Assessment and plan: Chronic - no exacerbation -continue duoneb (7) Hypertension: Status: Chronic Assessment and plan: Chronic - monitor (he does not take any antihypertensives) (8) GERD (gastroesophageal reflux disease): Status: Chronic Assessment and plan: Chronic - continue famotidine (9) DVT prophylaxis: Status: Acute Assessment and plan: He is on apixaban, history PAF (10) Discharge planning issues: Status: Acute Assessment and plan: DNR/DNI PT c/s. Palliative care consult [facility] Subjective Subjective Patient reports: no new complaints and still having pain; denies shortness of breath Interval history since last seen: Micky has a phone appointment with Dr Moore [facility] tomorrow 05/07 to discuss options. He will attend from the hospital room. We can provide him with an electronic method of communication and assure he attends that appointment. He has no new complaints today and states that he is feeling stronger. He wants to go to rehab from here so he can get stronger and remain independent in his home. Exam Const General: cooperative, comfortable and no acute distress HENMT Mouth: oral mucosae normal Neck Neck: normal visual inspection and no JVD Resp Auscultation: clear to auscultation bilaterally and no wheezes Cardio Rate: regular rate Rhythm: regular rhythm Heart Sounds: no murmurs GI Inspection: normal to inspection and non-distended Palpation: soft, not firm and nontender Back/Spine/Pelvis Thoracic/Lumbar Spine: thoracic and lumbar spine normal to inspection and pain with thoraco-lumbar ROM Pelvis: no pain with anterior-posterior compression Sacrum: no ecchymosis and no erythema Coccyx: no swelling and tenderness Neuro General: patient alert, patient awake and patient oriented x3 Extrem General: normal to inspection, no cyanosis and no edema Psych Mental Status: mental status grossly normal Speech and Movement: speech and movement normal Mood: congruent mood Affect: normal affect Objective Last Vital Signs Temp 36.9 C 05/06/22 12:00 Pulse 81 05/06/22 12:00 Resp 20 05/06/22 12:00 BP 120/68 05/06/22 12:00 Pulse Ox 94 05/06/22 12:00 Laboratory Results - last 24 hr 05/06/22 05/06/22 05:15 05:15 PT 11.0 INR 1.1 Sodium 136 Potassium 3.9 Chloride 103 Carbon Dioxide 28.0 Anion Gap 5.0 BUN 40 H Creatinine 1.3 Estimated GFR/1.73 m2 52.34 Glucose 95 Calcium 8.2 L Magnesium 2.7 H
[2022-05-06] MEDS: Acetaminophen 325 MG TAB 650 MG PO ×2 (14:13→20:04)
[2022-05-06 15:59] VITALS: BP 107/67; PULSE 72; RESP 18; TEMP 36.9; O2SAT 95
[2022-05-06] MEDS: Normal Saline Flush 10 ML SYR IVP (20:05)
[2022-05-06 22:29] VITALS: BP 106/63; PULSE 78; RESP 18; TEMP 36.3; O2SAT 93
[2022-05-07] MEDS: MORPHine 2 MG/ML SYR IVP ×2 (05:12→13:36)
[2022-05-07] MEDS: Normal Saline Flush 10 ML SYR IVP ×2 (05:13→13:37)
[2022-05-07] MEDS: Acetaminophen 325 MG TAB 650 MG PO ×4 (07:27→19:29)
[2022-05-07] MEDS: Pantoprazole 40 MG TABCR PO (07:28)
[2022-05-07] MEDS: predniSONE 20 MG TAB 40 MG PO (07:28)
[2022-05-07 08:30] VITALS: BP 98/60; PULSE 92; RESP 20; TEMP 36.8; O2SAT 95
--- NOTE | 2022-05-07 09:58 | PT.INIE ---
Date of service: 05/07/22 Time of Service: 09:58 PT Notes Visit Reasons: Back Pain,Dehydration,CLL,Failure to Thrive Physical Therapy Inpatient Initial Evaluation Date: 05/07/2022 Referring Doctor:? Steffi Torres MD PT Orders: PT CONSULT: Limited ability Precautions: Fall. Standard. Activity as tolerated. Patient Profile/Admitting Diagnosis:? Micky is an 87-year-old male with past medical history significant for chronic lymphocytic leukemia, chronic back pain, dementia, and L1-L4 previous vertebroplasties who has had multiple visits to the ED with the most recent one on 04/29/2022. Bri presented to the ED on 05/05/2022 for acute on chronic back pain, increasing confusion, increasing weakness, and inability to manage at home. Most recent [place] finding from [facility] [place]22 revealed left femoral neck pathologic fracture. Patient now with diagnoses of acute on chronic back pain, adult failure to thrive, chronic lymphocytic leukemia, and lytic bone lesions. PMHX: All Active Problems Back pain (Acute) Sarcoma of femur (Acute) Risk for falls (Acute) CLL (chronic lymphocytic leukemia) (Acute) 2021-followed by [facility] oncology, has been relatively stable has not required any intervention Pacemaker (Acute 10/10/14) Hypertension (Chronic 11/30/14) GERD (gastroesophageal reflux disease) (Chronic 11/30/14) Complete heart block (Acute 10/07/14) Wears dentures (Acute 11/30/14) MR (mitral regurgitation) (Chronic 10/10/14) MILD ECHO 09/2014 Poor posture (Acute) MDS (myelodysplastic syndrome) (Acute) Hypogammaglobulinemia (Acute) Dementia (Chronic) Renal insufficiency (Chronic) DVT prophylaxis (Acute) Anemia (Chronic) Chronic, followed by oncology-[facility] Pain of left hip joint (Acute) Atherosclerosis of coronary artery without angina pectoris (Acute) Needs assistance while at home (Acute) Closed wedge fracture of lumbar vertebra (Acute) Heartburn (Acute) General unsteadiness (Acute) Lack of energy (Acute) Backache (Acute) Pain in thoracic spine (Acute) Kidney stone (Chronic) Hydronephrosis (Acute) Drug induced constipation (Acute) Diaphragmatic hernia (Acute) Bilateral pleural effusion (Acute) Abdominal aortic aneurysm without rupture (Acute) Heart disease (Acute) Chronic congestive heart failure (Acute) Myocardial infarction (Chronic) Depressive disorder (Chronic) Bilateral hearing loss (Acute) Cardiac pacemaker in situ (Acute) Congestive heart failure (Chronic) COPD (chronic obstructive pulmonary disease) (Chronic) Dyspnea on exertion (Acute 10/06/14) a.? cannot walk more than 20 or 25 feet; he feels like he is going to pass outComplete heart block (Acute 10/06/14) a.? vitals are stable b.? junctional escape at about 63 bpmLeukocytosis (Acute 10/06/14) a.? predominance of lymphocytes, question CLLBenign prostatic hypertrophy (Chronic) Erectile dysfunction (Chronic) Hyperlipidemia (Chronic) GERD (gastroesophageal reflux disease) (Chronic) Hypertension (Chronic) Benign hematuria (Chronic) History of shingles (Chronic) 01/2013 H/O surgical procedure (Chronic) a.? bilateral inguinal herna repairsHistory of tobacco use (Chronic) smoked for 50 years, quit in 1997 Medical History? Aortic aneurysm Claustrophobia (11/30/14) CLL (chronic lymphocytic leukemia) (10/06/14) B-cell Pneumonia Shingles (11/30/14) Surgical History? H/O kyphoplasty L-4, T-10, L-1 History of thoracentesis (~08/30/19) 1250mL of pleural fluid removed Pacemaker (12/07/14) cardiac- in situ Repair of inguinal hernia B/L Social History/Home Situation: Lives alone in an apartment here in town.? No entrance steps. Independent with short distance ambulation using his FWW.? Uses motorized wheelchair for community ambulation.? Daughter Kate lives close by and has been a good help when needed. Equipment Owned/DME: FWW, SPC, motorized wheelchair Subjective: Agreeable to consult. Reports back spasms on the right mid and low back area precipitated by movement transitions of supine<>sit and sit<>stand. Walking does not aggravate pain. Denies numbness, tingling, and spreading of pain. Objective: General Observation: Seated on bedside chair.? In NAD. Oval mass seen at the upper/mid thoracic spine. Minimal redness over R lower throcacic and upper lumbar paraspinals. Right shoulder lower than the left. Trunk rotated to the right at the lower thoracic area. Thoracic kyphosis. Mental Status: Alert and oriented as to person, place, and date. Able to follow single step commands. Pain: 8-9/10 in mid an low back area on the R side Palpation: TTP R low thoracic and upper lumbar paraspinals with palpable tightness felt; moveable, non-tender oval mass in upper/mid thoracic spine ROM: Trunk AROM flexion, extension, rotation and lateral flexion decreased by about 50% due to pain level.? Right Lower Extremity: Straight leg raise limited to about 45 degrees before onset of spasms in R lower thoracic/upper lumbar area with no lateralization of pain. Able to bring knee to his belly to about 100 degrees of hip flexion and knee flexion before pain level increases. Ankle DF to neutral only. Left Lower Extremity: Straight leg raise limited to about 45 degrees before onset of spasms in R lower thoracic/upper lumbar area with no lateralization of pain. Able to bring knee to his belly to about 100 degrees of hip flexion and knee flexion before pain level increases. Ankle DF to neutral only. Strength: Trunk musculature 3-/5. Right Lower Extremity: Hip flexors 3-/5. Hip abductors 3-/5. Knee flexors 3-/5. Knee extensors 4-/5. Ankle dorsiflexors 3-/5. Ankle plantarflexors 4-/5. Left Lower Extremity: Hip flexors 3-/5. Hip abductors 3-/5. Knee flexors 3-/5. Knee extensors 4-/5. Ankle dorsiflexors 3-/5. Ankle plantarflexors 4-/5. Sensation:? Intact as to pain and light pressure in B LE.? No lateralization of pain with SLR. No numbness reported. Bed Mobility/Transfers: L sidelying to sit minimal assist with cues for safe and pain-free technique Sit to L sidelying minimal assist with cues for safe and pain-free technique Sit to stand minimal assist, needed support of B hands for more controlled and pain-reducing technique Stand to sit minimal assist, needed support of B hands for more controlled and pain-reducing technique Bed to reclining chair minimal assist, needed support of B hands for more controlled and pain-reducing technique THERA ACT to improve mobility performance: 1. PRT to R thoracic and lumbar paraspinals x 3 minutes combined with gentle bilateral shoulder depression elevation 2. STM to R thoracic and lumbar paraspinals x 5 minutes combined with left thoracic lean and rotation to L 3. Gentle bilateral shoulder flexion and extension with simultaneous abdominal bracing x 10 while holding a ball with both hands held forward in sitting 4. gentle trunk rotation to R and L with simultaneous abdominal bracing x 10 while holding a ball with both hands held forward in sitting 5. Partial knee bends with abdominal bracing with ball on back pressing against wall while holding onto FWW x 10 Gait: Instructed patient with level surface ambulation of 100 feet requiring contact guard assist. Lexy decreased. Step height decreased. Step length decreased.? Trunk anteroflexed. Mild SOB that resolved with rest. Balance: Static Sitting: Good Dynamic Sitting: Fair Static Standing: Fair Dynamic Standing: Fair Special Tests: Mobility Limitations Standardized Measure [facility] 6 clicks Basic Mobility Inpatient Short Form: Raw Score: 15? CMS Score: 58% deficit? ? ? Informed Consent/Education:? Patient was instructed in purpose of PT consult and plan of care. Agreeable to proceed with established PT POC to achieve personal goals. ASSESSMENT: R mid thoracic through R upper lumbar area paraspinal muscle strain due to chronic compression fracture, CLL progression, and thoracokyphoscoliosis resulting to mobility limitations and inability to manage at home. No lateralization of pain with SLR. Patient presents with clinical signs and symptoms consistent with current/admitting diagnoses that have resulted to mobility limitations, gait instability, generalized weakness, and overall ADL decline as demonstrated by the following impairment level findings: 1.? Decreased strength to B LE and trunk muscle groups 2.? Impaired sitting/standing balance 3.? Impaired activity tolerance 4.? Limitation of joint range of motion in trunk and B LE joints Impairments are contributing to the following functional limitations: 1.? Difficulty with ambulation without assistive device 2.? Increased completion time for mobility ADL performance 3.? Increased risk for falls 4. Inability to thrive at home alone Patient is assessed as a 02950 moderate complexity based on the following: History: 87-year-old male with past medical history as indicated above Examination: Demonstrable impairment in strength, balance, and mobility level with underlying impairments and functional limitations as exhibited above as well as deficit score of 36% utilizing the [facility] Mobility Inpatient Short Form Presentation: Evolving Decision Makin moderate complexity Goals: Goals X1 week 1. L sidelying-Sit independent 2. Sit-L sidelying independent 3. Sit-Stand independent 4. Stand-Sit independent 5. Bed-Chair independent 6. Chair-Bed independent 7. Independent gait on level surface with use of 4WW for at least 300 feet without report of pain nor dyspnea 8. Good static and dynamic standing balance/tolerance Plan of Care/Treatment Plan: Plan of Care/Treatment Plan: 1-2x/day, 7 days/week x 1 week. Plan of care has been reviewed with the THERAPY TECH providing the service under Physical Therapy direction. Initiate Physical Therapy intervention for pain management, strengthening, bed mobility, transfers, gait, stairs, balance training, and use of assistive device. DISCHARGE RECOMMENDATIONS: [] ? Home with no services [] [] ? Home with services [specify] [] ? Home with outpatient PT [] [X] ? SNF for continued rehabilitation. Patient will benefit from jail facility placement for continued skilled physical therapy services in order to progress mobility level, strength, and balance in preparation for a safe discharge to home. [] ? Skilled Nursing Care [] [] ? SNF versus LTC based on ability to participate and progress [] TREATMENT CODE/TIME: 30475 x 20 minutes, 45551 x 22 minutes beginning at 9:58 AM. Thank you for the opportunity to participate in the care of this patient. Sharmaine Avina PT, DPT, CLT [facility] [place], [place]
[2022-05-07 11:18] VITALS: BP 102/58; PULSE 73; RESP 28; TEMP 36.6; O2SAT 94
[2022-05-07 16:09] VITALS: BP 100/60; PULSE 68; RESP 19; TEMP 36.3; O2SAT 94
[2022-05-07] MEDS: diazePAM 2 MG TAB PO (16:19)
--- NOTE | 2022-05-07 16:50 | PDOC.CMPRO ---
- If Service Date Differs Date of service: 05/07/22 Time of Service: 16:50 Care Management Progress Note S/O: Micky was lying in bed when CM met with him. He reported his back continues to spasm, and requires alternating positioning to endure the pain. He verbalized not relating this pain to his hip fracture and not wanting fracture fx at this time. He did however advocate for short term SNF post hospitalization and requested referral be sent to [facility]; which was completed. Micky stated he did not want to lose his apartment at [facility] in [facility] as he had to wait for three years to get into the building and has only been there a year; he intends on a short rehab stay only prior to returning home. A: 87 year old admitted to [facility] on 05/06/22 for back pain, dehydration, CLL, Failure to thrive P: Micky would like to discharge to [facility] when ready per MD. Today, he verbalized not wanting hip fx surgery if recommended; he reports he is awaiting further discussion with Ortho and Hospitalist. Anticipate he will transfer via W/C van, provided by the facility.
--- NOTE | 2022-05-07 16:59 | PT.INTREAT ---
Date of service: 05/07/22 Time of Service: 16:59 PT Notes Visit Reasons: Back Pain,Dehydration,CLL,Failure to Thrive Physical Therapy Inpatient Treatment Note Date: 05/07/2022 Precautions: Fall. Standard. Activity as tolerated. Subjective: Agreeable to session. [place] better with intake of Valium early this afternoon. Expresses that manual therapy is doing him a lot of good. Not convinced that he can manage safely at home. Objective: General Observation: Seated on bedside chair.? In NAD. Oval mass seen at the upper/mid thoracic spine. Minimal redness over R lower throcacic and upper lumbar paraspinals.? Right shoulder lower than the left.? Trunk rotated to the right at the lower thoracic area. Thoracic kyphosis. Mental Status: Alert and oriented as to person, place, and date. Able to follow single step commands.? Pain: 8-9/10 in mid an low back area on the R side Palpation:? TTP R low thoracic and upper lumbar paraspinals with palpable tightness felt;? moveable, non-tender oval mass in upper/mid thoracic spine. THERA ACT to improve mobility performance: 1.? PRT to R thoracic and lumbar paraspinals x 3 minutes combined with gentle bilateral shoulder depression elevation 2.? STM to R thoracic and lumbar paraspinals x 5 minutes combined with left thoracic lean and rotation to L 3.? Gentle bilateral shoulder flexion and extension with simultaneous abdominal bracing x 10 while holding a ball with both hands held forward in sitting 4.? gentle trunk rotation to R and L with simultaneous abdominal bracing x 10 while holding a ball with both hands held forward in sitting 5.? Partial knee bends with abdominal bracing? with ball on back pressing against wall while holding onto FWW x 10 Balance: Static Sitting: Good Dynamic Sitting: Fair Static Standing: Fair Dynamic Standing: Fair ASSESSMENT: Responding well to manual therapy. R mid thoracic through R upper lumbar area paraspinal muscle strain due to chronic compression fracture, CLL progression, and thoracokyphoscoliosis resulting to mobility limitations and inability to manage safely at home. No lateralization of pain with SLR.? Patient presents with clinical signs and symptoms consistent with current/admitting diagnoses that have resulted to mobility limitations, gait instability, generalized weakness, and overall ADL decline as demonstrated by the following impairment level findings: 1.? Decreased strength to B LE and trunk muscle groups 2.? Impaired sitting/standing balance 3.? Impaired activity tolerance 4.? Limitation of joint range of motion in trunk and B LE joints DISCHARGE RECOMMENDATIONS: [] ? Home with no services [] [] ? Home with services [specify] [] ? Home with outpatient PT [] [X] ? SNF for continued rehabilitation.? Patient will benefit from [facility] facility placement for continued skilled physical therapy services in order to progress mobility level, strength, and balance in preparation for a safe discharge to home. [] ? Residential Care [] [] ? SNF versus LTC based on ability to participate and progress [] TREATMENT CODE/TIME: 94007 x 18 minutes beginning at 16:59 PM.
--- NOTE | 2022-05-07 17:32 | PCNE_ITS ---
Date of service: 05/07/22 Time of Service: 09:00 History of Present Illness Narrative: Mr. Lugo is an 87 y/o M currently inpatient at [facility] 2/ FTT, pain management; PMHx sig for chronic back pain, sarcoma of femur, chronic lymphocytic leukemia (f/b [facility]), HTN, GERD, compelte heart block w/pacemaker, COPD, CHF Patient reports back pain ongoing, right-sided pain, morphine with no effect. Did have some medicine that helped with pain however made more dizzy and confused and daughter Kate took that away due to concerns for failure to thrive. Patient with chronic lymphocytic leukemia w/bone mets, followed by heme-onc at [facility], consult this afternoon. Preference for no surgery, especially if does not needed, reports Ortho consult yesterday recommend no surgery as well Uses oxygen at home has to self pay for portable, uses intermittently. Using nebulizers 3 times a day with good effect; uses a walker and scooter at home for ambulation Lives alone at home in [facility], would be willing to go to SNF short-term however would like to return home as possible. If needed to live in a rehab for long-term, aware of the fact that would need to get rid of apartment due to financial strain, preference to not do this yet. Long-term plan to go to rehab when can no longer care for self at home. Does feel like he is able to self-care at this time. Once participating in Meals [employer] Wheels did not like that, reports would be willing to pay somebody to help with meal preparation. Self cleans apartment and prepares medications with observation. Independent with ADLs prior to this hospitalization Goals: Pain control. Staying home as long as possible, agreeable to short-term rehab. Advanced directive on file DNR/I, healthcare agent listed his stepdaughter Kate willing to follow with palliative outpatient; Assessment and Plan Assessment and plan (1) Palliative care patient: Status: Acute Assessment and plan: continue to follow while inpatient PRN, outpatient f/u to be scheduled at d/c pt w/several presentations to ED r/t pain and muscle spasms AD w/DNR/I already in place, update COLST at f/u (2) Adult failure to thrive: Status: Acute Assessment and plan: multiple visits to ED, no services consider superintendent terminal placement, or at least SNF d/t pt resistant to group home placement at this time [facility] referral pending discharge plans (3) Chronic back pain: Status: Acute Assessment and plan: 4 vertebroplasty's for his low back pain in the past due to compression fractures, likely related to bone integrity from CLL ortho consult: majority of pain d/t deconditioning, muscle spasms and multiple collapsed vertebral bodies; need for improved pain control, continue inpatient management w/hydromorphone, prednisone, lidocaine patches, Valium, heat/cold, PC to follow outpatient for sxs mx (4) Sarcoma of femur: Status: Acute Assessment and plan: found on recent CT scan; likely non-surgical, high risk candidate for anesthesia pending f/u at [facility] denies pain (5) CLL (chronic lymphocytic leukemia): Status: Acute Assessment and plan: multiple scalloped lesions throughout skeleton on XR, likely r/t CLL, WBC el evated to highest count in our records f/u w/hem/onc this afternoon need for improved pain control (6) COPD (chronic obstructive pulmonary disease): Status: Chronic Assessment and plan: on home O2 PRN no exacerbation today, stable; continue duonebs Review of Systems Constitutional Constitutional: Reports as per HPI PFSH All Active Problems Palliative care patient (Acute) Lytic bone lesion of left femur (Acute) Discharge planning issues (Acute) Chronic back pain (Acute) Adult failure to thrive (Acute) Chronic low back pain (Acute) Failure to thrive in adult (Acute) Low back pain (Acute) Back pain (Acute) Sarcoma of femur (Acute) Risk for falls (Acute) CLL (chronic lymphocytic leukemia) (Acute) 2021-followed by [facility] oncology, has been relatively stable has not required any intervention Pacemaker (Acute 10/10/14) Hypertension (Chronic 11/30/14) GERD (gastroesophageal reflux disease) (Chronic 11/30/14) Complete heart block (Acute 10/07/14) Wears dentures (Acute 11/30/14) MR (mitral regurgitation) (Chronic 10/10/14) MILD ECHO 09/2014 Poor posture (Acute) MDS (myelodysplastic syndrome) (Acute) Hypogammaglobulinemia (Acute) Dementia (Chronic) Renal insufficiency (Chronic) DVT prophylaxis (Acute) Anemia (Chronic) Chronic, followed by oncology-[facility] Pain of left hip joint (Acute) Atherosclerosis of coronary artery without angina pectoris (Acute) Needs assistance while at home (Acute) Closed wedge fracture of lumbar vertebra (Acute) Heartburn (Acute) General unsteadiness (Acute) Lack of energy (Acute) Backache (Acute) Pain in thoracic spine (Acute) Kidney stone (Chronic) Hydronephrosis (Acute) Drug induced constipation (Acute) Diaphragmatic hernia (Acute) Bilateral pleural effusion (Acute) Abdominal aortic aneurysm without rupture (Acute) Heart disease (Acute) Chronic congestive heart failure (Acute) Myocardial infarction (Chronic) Depressive disorder (Chronic) Bilateral hearing loss (Acute) Cardiac pacemaker in situ (Acute) Congestive heart failure (Chronic) COPD (chronic obstructive pulmonary disease) (Chronic) Dyspnea on exertion (Acute 10/06/14) a. cannot walk more than 20 or 25 feet; he feels like he is going to pass out Complete heart block (Acute 10/06/14) a. vitals are stable b. junctional escape at about 63 bpm Leukocytosis (Acute 10/06/14) a. predominance of lymphocytes, question CLL Benign prostatic hypertrophy (Chronic) Erectile dysfunction (Chronic) Hyperlipidemia (Chronic) GERD (gastroesophageal reflux disease) (Chronic) Hypertension (Chronic) Benign hematuria (Chronic) History of shingles (Chronic) 01/2013 H/O surgical procedure (Chronic) a. bilateral inguinal herna repairs History of tobacco use (Chronic) smoked for 50 years, quit in 1997 Medical History Adjustment disorder Aortic aneurysm Claustrophobia (11/30/14) CLL (chronic lymphocytic leukemia) (10/06/14) B-cell Paroxysmal A-fib Pneumonia Shingles (11/30/14) Surgical History H/O kyphoplasty L-4, T-10, L-1 History of thoracentesis (~08/30/19) 1250mL of pleural fluid removed Pacemaker (12/07/14) cardiac- in situ Repair of inguinal hernia B/L Family History Mother , 90 Stroke Father , 75 Accidental HORSE FELL ON HIM Heart disease Son , 50 Alcohol use disorder Son , 60 Alcohol use disorder Social History Smoking/Tobacco Use Status: Former Tobacco Use Quit Date: 10/20/97 Second Hand Exposure: Yes Smoking risk assessment performed?: Yes Alcohol Intake: former Drug use: Never Substance use type: does not use Caregiver/Support person: No Household members: none Housing: apartment Do you need help understanding health information?: Always Pets and animals: No Sexually active: No Do you think of yourself as: straight/heterosexual Current gender identity: male What is your relationship status?: How often do you talk on the phone with friends or family?: three or more times per week How often do you get together with friends or relatives?: three or more times per week How often do you attend methodist or oriental orthodox services?: decline to answer Do you belong to any clubs or organized social groups?: no Panel score (0-1 are the most socially isolated patients): 1 What type of physical activity do you participate in: none Seatbelt use: always Helmet use: No Drive intox or ride w/intox speedboat driver: No Do you feel safe at home: Yes Do you feel safe in your relationship?: Yes Exam Narrative Exam Narrative: lying in bed throughout exam, laying on L side Const General: cooperative, comfortable and no acute distress Neck Neck: normal visual inspection and no JVD Resp Effort & Inspection: normal respiratory effort, able to speak in complete sentences, no audible wheezes, no cough and other (on RA, O2 94%) GI Inspection: normal to inspection and non-distended Neuro General: patient alert, patient awake and patient oriented x3 Extrem General: normal to inspection, no cyanosis and no edema Psych Mental Status: mental status grossly normal Speech and Movement: speech and movement normal Mood: congruent mood Affect: normal affect Insight: limited Judgment: limited Results Last Vital Signs Temp 97.3 F L 05/07/22 16:09 Pulse 68 05/07/22 16:09 Resp 19 05/07/22 16:09 BP 100/60 05/07/22 16:09 Pulse Ox 94 05/07/22 16:09 Labs Result diagrams: 05/05/22 07:15 05/06/22 05:15
--- NOTE | 2022-05-07 19:40 | PGE_ITS ---
Date of Service Date of service: 05/07/22 Time of Service: 19:40 Assessment and Plan Assessment and plan (1) CLL (chronic lymphocytic leukemia): Status: Acute Assessment and plan: While this is a chronic condition, it has caused infiltrative bone disease which is so significant that he has an impending L femoral neck pathologic fracture noted on imaging (MRI pelvis from [facility] 04/24/22) . Infiltrative bone disease is incredibly painful and is causing this patient a very significant disability. Will have orthopedics evaluate the patient for a prophylactic hip surgery. Call with [facility] ortho oncology did not happen today Focus on pain control. Palliative care consult. (2) Chronic back pain: Status: Acute Assessment and plan: He has had no new injury -as above Pain medication Lidocaine patch Intermittent heat/cold Prednisone and valium, dialudid for severe pain (3) Adult failure to thrive: Status: Acute Assessment and plan: He has had multiple visits to the emergency department and is decompinsating and failing to manage on his own at home. He does not have home health services (he is reportedly not homebound). His family does help but it is unclear how much. He is now considering alf placement, until now he has been resistant and refused in the past. (4) Dementia: Status: Chronic Assessment and plan: He has been more confused in the past few weeks, unclear if it is a reaction to medication or progressing dementia. His head CT was negative 05/04/2022 in the ED for anything acute. (5) Risk for falls: Status: Acute Assessment and plan: He is a high risk for falls, PT will assess; usual fall precautions in place (6) COPD (chronic obstructive pulmonary disease): Status: Chronic Assessment and plan: Chronic - no exacerbation -continue duoneb (7) Hypertension: Status: Chronic Assessment and plan: Chronic - monitor (he does not take any antihypertensives) (8) GERD (gastroesophageal reflux disease): Status: Chronic Assessment and plan: Chronic - continue famotidine (9) DVT prophylaxis: Status: Acute Assessment and plan: He is on apixaban, history PAF (10) Discharge planning issues: Status: Acute Assessment and plan: DNR/DNI PT c/s. Palliative care consult [facility] Subjective Subjective Patient reports: still having pain and tolerating a regular diet Interval history since last seen: Today Micky had an appt wiht [facility] ortho/onc via telephone. This appointment did not happen. He states today he did not want anything done surgically and wants to go to the [facility] for rehab. He continues to have pain - it was unreleaved by kusum, changed to dialaudid. He also has valium ordered. Encouraged nursing to remind him when he has pain he should ask for medicine. Plan to go to [facility] Discussed with Dr Martins Exam Narrative Exam Narrative: lying in bed throughout exam, laying on L side Const General: cooperative, comfortable and no acute distress Neck Neck: normal visual inspection and no JVD Resp Effort & Inspection: normal respiratory effort, able to speak in complete sentences, no audible wheezes, no cough and other (on RA, O2 94%) GI Inspection: normal to inspection and non-distended Neuro General: patient alert, patient awake and patient oriented x3 Extrem General: normal to inspection, no cyanosis and no edema Psych Mental Status: mental status grossly normal Speech and Movement: speech and movement normal Mood: congruent mood Affect: normal affect Insight: limited Judgment: limited Objective Last Vital Signs Temp 36.3 C L 05/07/22 16:09 Pulse 68 05/07/22 16:09 Resp 19 05/07/22 16:09 BP 100/60 05/07/22 16:09 Pulse Ox 94 05/07/22 16:09 Reviewed Pertinent PMH: Yes
--- NOTE | 2022-05-08 | DI.RAD_ITS ---
Exam(s) XR FEMUR LT EXAM: XR FEMUR LT CLINICAL HISTORY: multiple bone lesions - CLL. TECHNIQUE: 2D digital imaging was performed. AP and lateral views COMPARISON: None. FINDINGS: BONES: No acute fracture is present. There is abnormal lucencies seen in the proximal through mid sh aft of the left femur with endosteal scalloping. The distal femur shows no definite abnormality.. JOINTS: No dislocation present. SOFT TISSUE: Normal. IMPRESSION: Abnormal lucencies in the proximal through mid femoral shaft.. DATA REPOSITORY: RADIATION DOSE DELIVERED:
--- NOTE | 2022-05-08 | DI.RAD_ITS ---
Exam(s) XR FEMUR RT EXAM: XR FEMUR RT CLINICAL HISTORY: Multipel bone lesions - CLL. TECHNIQUE: 2D digital imaging was performed. AP and lateral views COMPARISON: CR,XR XR HIP PELVIS ADULT BL from 05/05/2022 CR,XR XR LUMBAR SPINE COMPLETE from 05/05/2022 CR XR FEMUR LT from 05/08/2022 FINDINGS: There is abnormal increased lucency with mild endosteal scalloping involving the proximal through mid shaft of the femur. Distal shaft shows no definite lesions. There is some mottling of the femoral condyle and proximal tibial plateau but no definite focal lesion. The findings could be related to o steoporosis. IMPRESSION: Abnormal lucency in the proximal through mid shaft of the femur. No pathologic fracture. DATA REPOSITORY: RADIATION DOSE DELIVERED:
--- NOTE | 2022-05-08 | DI.RAD_ITS ---
Exam(s) XR HIP LT AP LAT ONLY EXAM: XR HIP LT AP LAT ONLY CLINICAL HISTORY: bone lesions. TECHNIQUE: 2D digital imaging was performed. Two views. COMPARISON: CT CT CHEST/ABD/PEL WO from 01/04/[address] PELVIC WO from 02/24/2022 CR,XR XR HIP PELVIS ADULT BL from 05/05/2022 FINDINGS: BONES: No acute fracture is present. There is abnormal increased lucency seen in the femoral neck reg ion and proximal femoral shaft. JOINTS: No dislocation present. The hip joint space is well maintained. SOFT TISSUE: Normal. IMPRESSION: Abnormal lucencies in the femoral neck through proximal femoral shaft. DATA REPOSITORY: RADIATION DOSE DELIVERED:
[2022-05-08 02:30] VITALS: BP 102/68; PULSE 73; RESP 22; TEMP 36.8; O2SAT 94
[2022-05-08] MEDS: diazePAM 2 MG TAB PO ×3 (07:34→20:41)
[2022-05-08] MEDS: predniSONE 20 MG TAB 40 MG PO (07:35)
[2022-05-08] MEDS: Docusate Sodium 100 MG CAP PO ×2 (07:35→20:40)
[2022-05-08] MEDS: Milk of Magnesia 30 ML CUP PO (07:35)
[2022-05-08] MEDS: Pantoprazole 40 MG TABCR PO (07:35)
[2022-05-08] MEDS: Acetaminophen 325 MG TAB 650 MG PO ×4 (07:35→20:41)
[2022-05-08 08:08] VITALS: BP 151/73; PULSE 91; RESP 22; TEMP 36.5; O2SAT 93
--- NOTE | 2022-05-08 09:16 | CMPROGNOTE_ITS ---
- If Service Date Differs Date of service: 05/08/22 Time of Service: 09:16 Care Management Progress Note S/O: Micky was lying in bed when CM met with him. He is working with PT, although sessions have been limited due to diarrhea. Micky shared with CM that his session with [facility] was helpful because he massaged his muscles. SNF referrals are pending. Per morning meeting, Micky reported to nursing that his assets were locked. CM spoke with Micky this morning, and his concern had to do with his [email or web address] automated system however he called his bank and the issue is resolved. A: 87 year old admitted to [facility] on 05/06/22 for back pain, dehydration, CLL, Failure to thrive P: Micky would like to discharge to [facility] when ready per MD. Referral is pending. Yesterday, he verbalized not wanting hip fx surgery if recommended; he reports he is awaiting further discussion with Ortho and Hospitalist. Anticipate he will transfer via W/C van, provided by the facility.
--- NOTE | 2022-05-08 09:24 | OT.INNT ---
Occupational Therapy Notes 05/08/22 OT attempted to consult with pt who was not in his room at this time. OT will attempt to consult with pt again tomorrow. Jacquelin Stone OTR/L
--- NOTE | 2022-05-08 10:18 | W.PM.PROGNOT ---
Date of Service Date of service: 05/08/22 Time of Service: 10:18 Assessment and Plan Assessment and plan (1) CLL (chronic lymphocytic leukemia): Status: Acute Assessment and plan: . Infiltrative bone disease is incredibly painful and is causing this patient a very significant disability. orthopedics evaluated and not surgical candidate Call with [facility] ortho oncology did not happen yesterday as planned Continue pain control. Palliative care following (2) Chronic back pain: Status: Acute Assessment and plan: He has had no new injury -as above Pain medication Lidocaine patch Intermittent heat/cold Prednisone and valium, dialudid for severe pain (3) Adult failure to thrive: Status: Acute Assessment and plan: He has had multiple visits to the emergency department and is decompensating and failing to manage on his own at home. He does not have home health services (he is reportedly not homebound). His family does help but it is unclear how much. 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 (4) Dementia: Status: Chronic Assessment and plan: He has been more confused in the past few weeks, unclear if it is a reaction to medication or progressing dementia. His head CT was negative 05/04/2022 in the ED for anything acute. he has not had any behavioral issues or sundowning (5) Risk for falls: Status: Acute Assessment and plan: He is a high risk for falls, working with PT usual fall precautions in place (6) COPD (chronic obstructive pulmonary disease): Status: Chronic Assessment and plan: Chronic - no exacerbation -continue duoneb (7) Hypertension: Status: Chronic Assessment and plan: Chronic - monitor (he does not take any antihypertensives) (8) GERD (gastroesophageal reflux disease): Status: Chronic Assessment and plan: Chronic - continue famotidine (9) DVT prophylaxis: Status: Acute Assessment and plan: He is on apixaban, history PAF (10) Discharge planning issues: Status: Acute Assessment and plan: DNR/DNI PT following Palliative care and case management following plan to discharge to [facility] and rehab when bed available. discussed with DR Martins Subjective Subjective Patient reports: still having pain (but improved), pain is less, voiding w/o difficulty, bowel movement (multiple, soft) and afebrile; denies nausea or shortness of breath Interval history since last seen: working with physical therapy. ambulating with FWW Exam Const General: cooperative, comfortable, no acute distress and frail appearing (elderly male of stated age) Nutritional Appearance: average body habitus Orientation: alert, awake and oriented x3 HENMT Head: normal to inspection, normocephalic and atraumatic Mouth: oral mucosae normal Eyes General: appearance normal, both eyes and all related structures Neck Neck: normal visual inspection and full ROM Chest Chest: normal inspection of the chest Resp Effort & Inspection: normal respiratory effort Auscultation: clear to auscultation bilaterally and diminished lung sounds (bases bilaterally) Cardio Rate: regular rate Rhythm: regular rhythm GI Inspection: normal to inspection and non-distended Palpation: soft and nontender Auscultation: normal bowel sounds Skin General skin exam: no rashes or lesions noted Neuro General: patient alert, patient awake, patient oriented x3 and no focal motor deficits Extrem General: normal to inspection and full ROM Psych Appearance: grossly normal Mental Status: mental status grossly normal Speech and Movement: speech and movement normal Mood: congruent mood Affect: normal affect Attitude: cooperative Thought Process: normal Objective Last Vital Signs Temp 36.5 C 05/08/22 08:08 Pulse 91 H 05/08/22 08:08 Resp 22 05/08/22 08:08 BP 151/73 H 05/08/22 08:08 Pulse Ox 93 05/08/22 08:08
[2022-05-08] MEDS: Albuterol/Ipratropium 3 ML UPD VIAL UPD (10:44)
[2022-05-08] MEDS: HYDROmorphone 2 MG/ML SYR 0.5 MG IVP (10:49)
--- NOTE | 2022-05-08 11:07 | PT.INTREAT ---
PT Notes Visit Reasons: Back Pain,Dehydration,CLL,Failure to Thrive Direct Treatment Time: [23] Total Treatment Time: [23] Treatment Units Time Duration Manual Therapy (52241) [2] [23] Subjective: Pt approached multiple times during the course of the morning with pt on the toilet at all attempts, Pt was eventually available later in the morning with Pt sitting on the EOB. Pt agrees to participating with therapeutic procedures as long as he doesn't have to stand up. OBJECTIVE: ? PAIN: 10/10 for back pain ? BED MOBILITY/TRANSFERS? Supine-sit: CGA ? Sit-supine: CGA ? Sit-stand: CGA? Stand-sit: CGA ? GAIT? Assistive Device: FWW ? Weight bearing: Full Assist: CGA ? Distance:? NA (diarrhea)? Deviation: NA? Manual therapy [id number] 23mins: 1.?PRT to R thoracic and lumbar paraspinals x 3 minutes combined with gentle bilateral shoulder depression elevation 2.?STM to R thoracic and lumbar paraspinals x 5 minutes combined with left thoracic lean and rotation to L 3.?Gentle bilateral shoulder flexion and extension with simultaneous abdominal bracing x 10 while holding a ball with both hands held forward in sitting 4.?Gentle trunk rotation to R and L with simultaneous abdominal bracing x 10 while holding a ball with both hands held forward in sitting ASSESSMENT:? Patient tolerated session with complaint of SOB with all activity.? Patient requires cueing for FWW mechanics with use of FWW and 4WW for safety. Plan: Continue with POC for intervention for pain management, strengthening, bed mobility, transfers, gait, stairs, balance training, and use of assistive device. TREATMENT CODE/TIME: minutes; [id number] (10:51-11:14am)
[2022-05-08] MEDS: traMADol 50 MG TAB PO ×3 (11:49→20:40)
[2022-05-08] MEDS: Famotidine 20 MG TAB PO (11:49)
--- NOTE | 2022-05-08 13:20 | W.PM.PROGNOT ---
Date of Service Date of service: 05/08/22 Time of Service: 11:30 Assessment and Plan Assessment and plan (1) Lytic bone lesion of left femur: Status: Acute Assessment and plan: Mr. Kohler is a 87-year-old who has CLL and worsening low back pain and deconditioning. He has been diagnosed with a lytic lesion about the anterior aspect of the left femoral neck. However, it is barely visible on plain films which is what the initial prophylactic fixation scoring system was based off of. More importantly, he has no functional pain. He is able to stand and is able to walk without any pain in the left side, mostly of his hip on the right and his low back. I had a long discussion with Dr. Moore, orthopedic oncologist at [facility], who agreed with the assessment that he would not proceed with prophylactic fixation without more functional pain, especially given his comorbidities and his pain elsewhere. His white blood cell count is greater than 75,000 and very well may represent increased activity of his CLL which is causing some of his back pain and his bone pain. X-rays of both femur and both hips were obtained as well which do show scalloping of the proximal aspect of both femurs bilaterally. This is a common appearance with CLL. The increased marrow activity causes the scalp and the fact although is not a true mass-effect like an other tumors. At this point, I recommend palliative care consult and discussion with hematology oncology about what options may be available to calm down the activity of his bone marrow with CLL. We should continue to work on pain management and likely rehabilitation placement. If he starts having pain about the left hip with any weightbearing activity then prophylactic fixation should be considered in the form of a long cemented hemiarthroplasty. However, he would need medicine and anesthesia clearance before proceeding. [facility] may be a better candidate a tertiary center given his other medical comorbidities. Subjective Subjective Interval history since last seen: Mr. Kohler reports no changes. He has been able to ambulate physical therapy once again without any significant left hip pain. He primarily has some pain about the right hip, right buttock and low back. He does feel that things are improving. No other acute changes. Exam Extrem Other: Evaluation of his left hip shows no significant pain with passive flexion, internal Tatian, external rotation. He is able to lift the left leg off the bed, albeit weakly, without significant increase in pain about the left hip but he does have some pain in his low back in doing so. Forced passive range of motion does not cause any significant pain nor is actually loading the left leg. Objective Last Vital Signs Temp 36.5 C 05/08/22 08:08 Pulse 91 H 05/08/22 08:08 Resp 22 05/08/22 08:08 BP 151/73 H 05/08/22 08:08 Pulse Ox 93 05/08/22 08:08
[2022-05-08 14:34] VITALS: BP 111/57; PULSE 74; RESP 18; TEMP 36.1; O2SAT 93
[2022-05-08] MEDS: Psyllium PKT 1 EACH PO (20:41)
[2022-05-08 22:37] VITALS: BP 108/61; PULSE 68; RESP 19; TEMP 36.4; O2SAT 98
[2022-05-09 07:34] VITALS: BP 102/64; PULSE 71; RESP 18; TEMP 36.2; O2SAT 95
[2022-05-09] MEDS: diazePAM 2 MG TAB PO ×2 (07:35→13:32)
[2022-05-09] MEDS: Psyllium PKT 1 EACH PO (07:35)
[2022-05-09] MEDS: traMADol 50 MG TAB PO ×2 (07:36→11:16)
[2022-05-09] MEDS: Acetaminophen 325 MG TAB 650 MG PO ×2 (07:36→11:16)
[2022-05-09] MEDS: predniSONE 20 MG TAB 40 MG PO (07:36)
[2022-05-09] MEDS: Pantoprazole 40 MG TABCR PO (07:36)
[2022-05-09] MEDS: Docusate Sodium 100 MG CAP PO (07:36)
--- NOTE | 2022-05-09 08:58 | PDOC.CMPRO ---
- If Service Date Differs Date of service: 05/09/22 Time of Service: 08:58 Care Management Progress Note S/O: A: 87 year old admitted to [facility] on 05/06/22 for back pain, dehydration, CLL, Failure to thrive P: Micky would like to discharge to [facility] when ready per MD. Referral is pending. Yesterday, he verbalized not wanting hip fx surgery if recommended; he reports he is awaiting further discussion with Ortho and Hospitalist. Anticipate he will transfer via W/C van, provided by the facility.
--- NOTE | 2022-05-09 09:17 | PT.INTREAT ---
Date of service: 05/09/22 Time of Service: 08:44 PT Notes Visit Reasons: Back Pain,Dehydration,CLL,Failure to Thrive Inpatient Physical Therapy Treatment Note [facility] Date: 05/09/2022 PRECAUTIONS: Fall, LBP, Activity as tolerated SUBJECTIVE: Micky is pleasant and agreeable to participating in PT. He reports that he felt better after the manual therapy treatment that he received yesterday. He reports that his spasms flip-flop sides. OBJECTIVE: PAIN: Patient c/o LBP with transfers and bed mobility BED MOBILITY/TRANSFERS Sit-supine: Mod A Sit-stand: CGA Stand-sit: CGA Chair-bed: CGA GAIT Assistive Device: 4WW Weight bearing: Full Assist: CGA Distance: 5' Deviation: None THEREX: Patient was instructed in several core stabilization exercises, to include: shoulder flexion/extension with ball, gentle trunk rotation with UEs extended with ball, and push/pull with UEs extended with ball. All exercises were performed in a seated position with constant cueing for core activation for maximum exercise benefit. MANUAL THERAPY: With patient in side-lying, perform gentle STM throughout paraspinals, scapular musculature, upper traps, and glutes, as well as mild TPR techniques, with good relief. Request from nursing Aqua-K heating pad for further LBP relief. ASSESSMENT: Patient demonstrates increased low back discomfort with transfers and bed mobility. He was able to tolerate core stabilization exercises without c/o LBP. PLAN: Patient to discharge to SNF-level facility for continued rehab later today, per provider. TREATMENT CODE/TIME: 29 minutes; 34327 x2 (08:44)
--- NOTE | 2022-05-09 10:47 | PGE_ITS ---
Date of Service Date of service: 05/09/22 Time of Service: 10:47 Assessment and Plan Assessment and plan (1) CLL (chronic lymphocytic leukemia): Status: Acute Assessment and plan: with infiltrative bone disease seen by orthopedics yesterday, lytic lesion on left femur with no pain. consider surgical intervention should it become painful, see details in yesterdays orthopedic consult note. continue management of muscle spasms. Continue pain control. Palliative care following (2) Chronic back pain: Status: Acute Assessment and plan: He has had no new injury -as above Pain medication Lidocaine patch Intermittent heat/cold Prednisone and valium, dialudid for severe pain (3) Adult failure to thrive: Status: Acute Assessment and plan: He has had multiple visits to the emergency department and is decompensating and failing to manage on his own at home. He does not have home health services (he is reportedly not homebound). His family does help but it is unclear how much. 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 (4) Dementia: Status: Chronic Assessment and plan: He has been more confused in the past few weeks, unclear if it is a reaction to medication or progressing dementia. His head CT was negative 05/04/2022 in the ED for anything acute. he has not had any behavioral issues, confusion or sundowning here (5) Risk for falls: Status: Acute Assessment and plan: He is a high risk for falls, working with PT usual fall precautions in place (6) COPD (chronic obstructive pulmonary disease): Status: Chronic Assessment and plan: Chronic - no exacerbation -continue duoneb (7) Hypertension: Status: Chronic Assessment and plan: Chronic - monitor (he does not take any antihypertensives) (8) GERD (gastroesophageal reflux disease): Status: Chronic Assessment and plan: Chronic - continue famotidine (9) DVT prophylaxis: Status: Acute Assessment and plan: He is on apixaban, history PAF (10) Discharge planning issues: Status: Acute Assessment and plan: DNR/DNI PT following Palliative care and case management following plan to discharge to [facility] and rehab when bed available. discussed with DR Martins Subjective Subjective Patient reports: no new complaints, tolerating liquids well, tolerating a regula r diet, voiding w/o difficulty and no bowel movement Exam Const General: cooperative, comfortable, no acute distress and frail appearing (elderly male of stated age) Nutritional Appearance: average body habitus Orientation: alert, awake and oriented x3 HENMT Head: normal to inspection, normocephalic and atraumatic Mouth: oral mucosae normal Eyes General: appearance normal, both eyes and all related structures Neck Neck: normal visual inspection and full ROM Chest Chest: normal inspection of the chest Resp Effort & Inspection: normal respiratory effort Auscultation: clear to auscultation bilaterally and diminished lung sounds (bases bilaterally) Cardio Rate: regular rate Rhythm: regular rhythm GI Inspection: normal to inspection and non-distended Palpation: soft and nontender Auscultation: normal bowel sounds Skin General skin exam: no rashes or lesions noted Neuro General: patient alert, patient awake and patient oriented x3 Extrem General: normal to inspection Psych Appearance: grossly normal Mental Status: mental status grossly normal Speech and Movement: speech and movement normal Mood: congruent mood Affect: normal affect Attitude: cooperative Thought Process: normal Objective Last Vital Signs Temp 36.2 C L 05/09/22 07:34 Pulse 71 05/09/22 07:34 Resp 18 05/09/22 07:34 BP 102/64 05/09/22 07:34 Pulse Ox 95 05/09/22 07:34
[2022-05-09] MEDS: Lidocaine 5% Patch 2 PATCH TP (12:26)
[2022-05-09 13:29] LABS: Source Nasal/Nares
--- NOTE | 2022-05-09 13:48 | DSE_ITS ---
Date of service: 05/09/22 Time of Service: 13:48 DS: Diagnosis Discharge Diagnosis (1) CLL (chronic lymphocytic leukemia): Status: Acute (2) Chronic back pain: Status: Acute (3) Adult failure to thrive: Status: Acute (4) Dementia: Status: Chronic (5) Risk for falls: Status: Acute (6) COPD (chronic obstructive pulmonary disease): Status: Chronic (7) Hypertension: Status: Chronic (8) GERD (gastroesophageal reflux disease): Status: Chronic Discharge Plan Disposition Patient Disposition: SNF (LEVEL 1) [facility] Condition: Stable Discharge Details Reason For Visit: Back Pain,Dehydration,CLL,Failure to Thrive Admit Date/Time: 05/06/22 07:44 Admit Provider: Steffi Torres Attending Provider: Steffi Torres Primary Care Provider: Manohar Yadav Hospital Course Hospital Course: This is an 87 year old male with a past medical history including chronic back pain, multiple compression fractures of lumbar vertebra.CLL, hypertension, GERD, Pacemaker (PAF, 2013), AAA, high cholesterol, adult failure to thrive.? His CT 03/10 demonstrates fractures at multiple thoracic levels and all lumbar levels with corresponding vertebroplasties L1-4; An MRI of his spine, April 24, 2022, [place] [facility] [place]. Patient lives alone. He was hospitalized overnight 04/29/2022 for acute on chronic? back pain for pain control and PT.? He was discharged to home without services (he is not homebound) 04/30/2022.? He saw Dr Martines for follow up after hospitalization, at his office 05/01/2022 and started on Methocarbinol for muscle spasms. He came to the [facility] Emergency Department 05/04/2022 in the morning with the complaint of new confusion, for 2 days.? It was unclear if the tramadol and methocarbinol he was newly taking was causing the new sudden onset of confusion.? No specific injury, no fall, no trauma. Feels comfortable at rest, but has significant pain with any movement. He had a CT of his head that had no acute findings. His urine was negative for infection.? , laboratory work-up which showed slight increase in renal dy sfunction, as well as an elevated white count consistent with CLL.? Eventually after discussion with his stepdaughter and the patient, he wanted to go home, and did not want to be admitted and was discharged home.? He states that this morning starting at 4 AM he had continued return of his back spasm.? Daughter now states he is declining at home, becoming more weak and more confused as of late.? Patient complains of his back spasm, and states that his mouth feels dry but otherwise denies any falls, chest pain, or complaints since he left the emergency department yesterday.? He states that his back spasm is on the right- hand side.? He denies any pain on the left.? No other complaints at this time.? No other modifying factors. There was not anymore imaging done in the emergency department secondary to the proximity of the recent diagnostic studies. He was discharged to home with a new prescription for prenisone and valium.? He returned back to the [facility] Emergency Department at 0700 this morning, 05/05/2022, stating he would like to consider admission to the hospital and / or half-way care. He is admitted for observation on the medical surgical unit. He worked with physical therapy and was slow to progress. He continued having significant back spasms so was changed to inpatient status for medication adjustment in high risk patient. He was scheduled valium and tramadol and lidocaine patch applied and effective. hospitals course complicated with constipation relieved with bowel management He was seen by orthopedics for a lytic lesion about the anterior aspect of the left femoral neck.?Since the hip is not painful recommendations are for palliative care consultation and discussion with hematology oncology about what options may be available to calm down the activity of his bone marrow with CLL.? We should continue to work on pain management and rehabilitation placement.? If he starts having pain about the left hip with any weightbearing activity then prophylactic fixation should be considered in the form of a long cemented hemiarthroplasty. He has remained hemodyamically and medically stable. He is eating and drinking and voiding well and referrals placed and he is accepted and being transported by wheelchair van to [facility] and rehab. discussed with Dr Martins Home Meds and New Rx's Prescriptions: New diazepam 2 mg Tablet 2 mg PO TID Qty: 12 0RF tramadol 50 mg Tablet 50 mg PO QID PRN (Reason: pain) Qty: 10 0RF lidocaine 5 % Adhesive Patch,Medicated 2 patch topical DAILY Qty: 0 0RF docusate sodium [Colace] 100 mg Capsule 100 mg PO BID Qty: 0 0RF Continued famotidine 20 mg tablet 20 mg PO BID acetaminophen [Tylenol 8 Hour] 650 mg tablet extended release 1,300 mg PO Q8H PRN (Reason: fever or pain) Qty: 1 0RF Rx Instructions: OTC Eliquis 5 MG tablet 5 mg PO BID Qty: 180 ipratropium-albuterol 0.5 mg-3 mg(2.5 mg base)/3 mL solution for nebulization 3 ml INHALATION DAILY Label Comments: INHALE THE CONTENTS OF ONE VIAL VIA NEBULIZER EVERY 4 TO 6 HOURS NEEDED furosemide 20 mg tablet 20 mg DAILY Label Comments: TAKE ONE TABLET BY MOUTH EVERY DAY albuterol sulfate 90 mcg/actuation HFA aerosol inhaler 1 puff INHALATION PRN PRN Label Comments: INHALE TWO PUFFS BY MOUTH EVERY 4 HOURS prednisone 20 mg tablet See Rx Instructions .ROUTE .COMPLEX Qty: 12 0RF Rx Instructions: Take 3 tabs daily for 2 days, then 2 tabs daily for 2 days, then 1 tab daily for 2 days Discontinued diazepam 5 mg Tablet 5 mg PO Rx Instructions: 05/05/22 pt was sent home with two tabs none were used Discharge Instructions Instructions: Muscle Spasm (ED), Chronic Lymphocytic Leukemia (DC) Stand Alone Forms: Nursing Discharge Form [facility] - Activity:: Activity as Tolerated Equipment/Supplies:: No Equipment Needed Diet:: As Tolerated Discharge Orders Discharge Orders: Discharge Order (Routine); Ordered 05/09/22 Ordered By: Holly Paige DS: Summary Time Spent with Patient providing and/or coordinating discharge services: Greater than 30 minutes Status at Discharge Functional status at discharge: uses cane/walker Overall status at discharge: patient is not back to baseline Mental Status: mental status grossly normal Speech and Movement: speech and movement normal Mood: congruent mood Affect: normal affect Exam Const General: cooperative, comfortable, no acute distress and frail appearing (elderly male of stated age) Nutritional Appearance: average body habitus Orientation: alert, awake and oriented x3 HENMT Head: normal to inspection, normocephalic and atraumatic Mouth: oral mucosae normal Eyes General: appearance normal, both eyes and all related structures Neck Neck: normal visual inspection and full ROM Chest Chest: normal inspection of the chest Resp Effort & Inspection: normal respiratory effort Auscultation: clear to auscultation bilaterally and diminished lung sounds (bases bilaterally) Cardio Rate: regular rate Rhythm: regular rhythm GI Inspection: normal to inspection and non-distended Palpation: soft and nontender Auscultation: normal bowel sounds Skin General skin exam: no rashes or lesions noted Neuro General: patient alert, patient awake and patient oriented x3 Extrem General: normal to inspection Psych Appearance: grossly normal Mental Status: mental status grossly normal Speech and Movement: speech and movement normal Mood: congruent mood Affect: normal affect Attitude: cooperative Thought Process: normal DS: Data Vitals/I&O Vitals and I&O: Vital Signs Temperature 36.2 C L 05/09/22 07:34 Temperature Source Tympanic 05/09/22 07:34 Pulse 71 05/09/22 07:34 Pulse Rhythm Regular 05/09/22 07:35 Respiratory Rate 18 05/09/22 07:34 Respiratory Effort Non-Labored 05/09/22 07:35 Respiratory Depth Normal 05/09/22 07:35 Respiratory Pattern Normal 05/09/22 07:35 Blood Pressure 102/64 05/09/22 07:34 Blood Pressure Position Supine 05/05/22 06:43 Pulse Oximetry 95 05/09/22 07:34 Oxygen Delivery Method Room Air 05/09/22 07:34 Oxygen Flow Rate 0 05/09/22 07:34 Pain Level 0 05/09/22 07:34 Comment 05/06/22 16:59 Intake & Output 05/08/22 05/09/22 05/09/22 23:59 11:59 23:59 Intake Total 620 / 860 Output Total 575 / 775 200 / 775 Balance 620 / 660 -575 / -775 -200 / -775 Intake: Oral 620 / 860 Output: Urine 575 / 775 200 / 775 Other: Urine Color Straw Light Mis Urine Appearance Clear Clear Clear Urine Odor Normal Stool Size Small Stool Characteristics Soft Liquid Voiding Methods Urinal Data Completed and Pending Labs on day of discharge: Labs from last 24 hours 05/09/22 13:22 COVID-19 Source Nasal/Nares SARS-CoV-2 (PCR) Pending [facility] All Active Problems Palliative care patient (Acute) Lytic bone lesion of left femur (Acute) Discharge planning issues (Acute) Chronic back pain (Acute) Adult failure to thrive (Acute) Chronic low back pain (Acute) Failure to thrive in adult (Acute) Low back pain (Acute) Back pain (Acute) Sarcoma of femur (Acute) Risk for falls (Acute) CLL (chronic lymphocytic leukemia) (Acute) 2021-followed by [facility] oncology, has been relatively stable has not required any intervention Pacemaker (Acute 10/10/14) Hypertension (Chronic 11/30/14) GERD (gastroesophageal reflux disease) (Chronic 11/30/14) Complete heart block (Acute 10/07/14) Wears dentures (Acute 11/30/14) MR (mitral regurgitation) (Chronic 10/10/14) MILD ECHO 09/2014 Poor posture (Acute) MDS (myelodysplastic syndrome) (Acute) Hypogammaglobulinemia (Acute) Dementia (Chronic) Renal insufficiency (Chronic) DVT prophylaxis (Acute) Anemia (Chronic) Chronic, followed by oncology-[facility] Pain of left hip joint (Acute) Atherosclerosis of coronary artery without angina pectoris (Acute) Needs assistance while at home (Acute) Closed wedge fracture of lumbar vertebra (Acute) Heartburn (Acute) General unsteadiness (Acute) Lack of energy (Acute) Backache (Acute) Pain in thoracic spine (Acute) Kidney stone (Chronic) Hydronephrosis (Acute) Drug induced constipation (Acute) Diaphragmatic hernia (Acute) Bilateral pleural effusion (Acute) Abdominal aortic aneurysm without rupture (Acute) Heart disease (Acute) Chronic congestive heart failure (Acute) Myocardial infarction (Chronic) Depressive disorder (Chronic) Bilateral hearing loss (Acute) Cardiac pacemaker in situ (Acute) Congestive heart failure (Chronic) COPD (chronic obstructive pulmonary disease) (Chronic) Dyspnea on exertion (Acute 10/06/14) a. cannot walk more than 20 or 25 feet; he feels like he is going to pass out Complete heart block (Acute 10/06/14) a. vitals are stable b. junctional escape at about 63 bpm Leukocytosis (Acute 10/06/14) a. predominance of lymphocytes, question CLL Benign prostatic hypertrophy (Chronic) Erectile dysfunction (Chronic) Hyperlipidemia (Chronic) GERD (gastroesophageal reflux disease) (Chronic) Hypertension (Chronic) Benign hematuria (Chronic) History of shingles (Chronic) 01/2013 H/O surgical procedure (Chronic) a. bilateral inguinal herna repairs History of tobacco use (Chronic) smoked for 50 years, quit in 1997 Medical History Adjustment disorder Aortic aneurysm Claustrophobia (11/30/14) CLL (chronic lymphocytic leukemia) (10/06/14) B-cell Paroxysmal A-fib Pneumonia Shingles (11/30/14) Surgical History H/O kyphoplasty L-4, T-10, L-1 History of thoracentesis (~08/30/19) 1250mL of pleural fluid removed Pacemaker (12/07/14) cardiac- in situ Repair of inguinal hernia B/L Family History Mother , 90 Stroke Father , 75 Accidental HORSE FELL ON HIM Heart disease Son , 50 Alcohol use disorder Son , 60 Alcohol use disorder Social History Smoking/Tobacco Use Status: Former Tobacco Use Quit Date: 10/20/97 Second Hand Exposure: Yes Smoking risk assessment performed?: Yes Alcohol Intake: former Drug use: Never Substance use type: does not use Caregiver/Support person: No Household members: none Housing: apartment Do you need help understanding health information?: Always Pets and animals: No Sexually active: No Do you think of yourself as: straight/heterosexual Current gender identity: male What is your relationship status?: How often do you talk on the phone with friends or family?: three or more times per week How often do you get together with friends or relatives?: three or more times per week How often do you attend faith or jehovah's witness services?: decline to answer Do you belong to any clubs or organized social groups?: no Panel score (0-1 are the most socially isolated patients): 1 What type of physical activity do you participate in: none Seatbelt use: always Helmet use: No Drive intox or ride w/intox 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
[2022-05-09 14:24] LABS: COVID-19 PCR Negative (Negative)
--- NOTE | 2022-05-09 15:25 | PDOC.CMDIS ---
- If Service Date Differs Date of service: 05/09/22 Time of Service: 15:25 LACE Index Scoring Tool - Questions: Length of Stay (in days): 3 Acuity (Admit via E.D.?): Yes Comorbidities: Metastatic Solid Tumor E.D. Visits: 5 - Answers: Total Score: 15 Risk of Readmission: High Risk Care Management Discharge Reason for Hospitalization: Back pain, dehydration, CLL, failure to thrive Discharge Plan: Micky is discharged to [facility] for STR prior to returning home. CM discussed discharge in detail with Micky, who has routinely been agreeable to going to [facility] for STR throughout this admission. CM also left 2 messages on Kate's phone, advising her of Micky's readiness for discharge, in addition to his bed acceptance at [facility]. Micky transported to [facility] via facility w/c van. He will follow up with community providers and discharge plan of care as prescribed. Patient/Family Education Needs: Review discharge instructions, limitations, medications and plan to follow up with community providers. ask me three. Services Needed at Discharge: Halfway Facility ([facility])
== END 2022-05-09 14:16 | disposition skilled nursing facility (03) | DRG 948 ==
LOC: ER 08:42 → MS 05-06 10:03
PROVIDERS: Nurse Practitioner Acute Care; Nurse Practitioner Family; Admitting Provider Internal Medicine; Emergency Provider Student in an Organized Health Care Education/Training Program; PCP Nurse Practitioner Family; Visit Provider Internal Medicine
DX: G89.3 Neoplasm related pain (acute) (chronic) (principal); C91.10 Chronic lymphocytic leukemia of B-cell type not having achieved remission; I44.2 Atrioventricular block, complete; D80.1 Nonfamilial hypogammaglobulinemia; I13.0 Hypertensive heart and chronic kidney disease with heart failure and stage 1 through stage 4 chronic kidney disease, or unspecified chronic kidney disease; C40.22 Malignant neoplasm of long bones of left lower limb; M84.48XA Pathological fracture, other site, initial encounter for fracture; R62.7 Adult failure to thrive; M54.50 Low back pain, unspecified; F03.90 Unspecified dementia, unspecified severity, without behavioral disturbance, psychotic disturbance, mood disturbance, and anxiety; Z91.81 History of falling; J44.9 Chronic obstructive pulmonary disease, unspecified; K21.9 Gastro-esophageal reflux disease without esophagitis; Z66 Do not resuscitate; I48.0 Paroxysmal atrial fibrillation; Z79.01 Long term (current) use of anticoagulants; Z95.0 Presence of cardiac pacemaker; I71.4 Abdominal aortic aneurysm, without rupture; E78.00 Pure hypercholesterolemia, unspecified; I34.0 Nonrheumatic mitral (valve) insufficiency; D46.9 Myelodysplastic syndrome, unspecified; I25.10 Atherosclerotic heart disease of native coronary artery without angina pectoris; N18.9 Chronic kidney disease, unspecified; I25.2 Old myocardial infarction; E78.5 Hyperlipidemia, unspecified; Z87.891 Personal history of nicotine dependence; M62.830 Muscle spasm of back
CPT/HCPCS: 36415; 73521; 73552; 80048; 80053; 87635; 96360; 96361; 97140; 97163; 97530; 99223; 99232; 99285; 72110; 73502; 83735; 85025; 85610; 99219; 99233; 99239; G0378; J1170; J2270; J7512; J7620